=== PATIENT | female | born 1950 | race Caucasian/White ===

== ENCOUNTER 2018-07-29 05:14 | Observation (INO) | payer MEDICARE, OTHER, SELFPAY ==
[2018-07-29] VITALS (12 sets, daily range): BP systolic 105–154; BP diastolic 53–85; PULSE 52–93; RESP 16–18; TEMP 36.4–37.4; O2SAT 96–99; BMI 22.6; BMI 21.4; BMI 21.5
--- NOTE | 2018-07-29 05:35 | ED.DCSUM_ITS ---
History of Present Illness Chief Complaint: Chest Pain Informant: Patient Narrative: Patient stated she laid down to go to bed last night around 9 PM approximately 8 hours ago and started having some left-sided chest pain. She describes the sharp constant pain. Worse with breathing deep. Laying on her left side seems to make it worse as well. She denies any cough fevers or chills. She did feel a little bit chilled at congregation yesterday morning but that went away. She has had this before with previous pneumonia per patient last year. Patient denies any cardiac history. She is never had a stress test or heart cath. She took Tylenol prior to coming in but it seemed to be consistent. Current severity is moderate. Patient denies any pulmonary embolism risk factors. No recent trips. No leg pain or swelling. She is never had a blood clot. She denies any dissection risk factors. She denies any previous medical history other than remote pneumonia. Past Medical History - Allergies and Home Meds Allergies/Adverse Reactions: Allergies No Known Allergies Allergy (Verified 07/29/18 05:15) Primary Care Physician: Norah Munson MD [Primary Care Provider] - Prior records reviewed: Yes Past Medical History: - - Pneumonia Surgical History: cholecystectomy Lives: Spouse/ Significant Other Smoking Status: Never smoker Alcohol: None Drugs: None Review of Systems General: Denies: Chills, Fever, Sweats Eyes: Denies: Visual changes - bilaterally, Diplopia ENT: Denies: Rhinorrhea, Sore throat Cardiovascular: Reports: Chest pain. Denies: Palpitations Respiratory: Denies: Dyspnea, Cough, Dyspnea on exertion Gastrointestinal: Denies: Abdominal pain, Nausea, Vomiting, Diarrhea, Melena, Hematochezia Genitourinary: Denies: Dysuria, Hematuria, Frequency Musculoskeletal: Denies: Back pain, Extremity Pain Skin: Denies: Rash, Wounds Neurological: Denies: Headache, Weakness, Numbness Physical Exam Vital Signs/Narrative: Vital Signs Temp Pulse Resp BP Pulse Ox 07/29/18 05:15 99.4 F H 93 17 154/85 H 96 General: Well nourished, Well developed, No Acute Distress Head: Normocephalic, Atraumatic Eyes: Perrl, EOMI ENT: Moist mucous membranes, No rhinorrhea Neck: Supple, Nontender Cardiovascular: Regular rate, Regular rhythm, No murmurs Respiratory: No distress, CTA bilaterally, Chest nontender Abdomen: Soft, Nontender, Nondistended, Normal bowel sounds Back: Nontender, Normal Inspection Extremities: Nontender, No edema Skin: Normal color, No rash Neurological: Alert, Oriented x3, Cranial nerves II-XII grossly intact, Normal Strength, Normal Sensation Psychological: Normal affect, Normal Mood Diagnostic/Tx/Re-eval - Medical Decision Making EKG shows sinus rhythm at a rate of 77. T wave inversion in inferior lead III. This is changed from previous EKG of 2007. 1 PVC noted. No acute STEMI pattern or other ischemic findings. Patient given a dose of aspirin and morphine. Lab work and chest x-ray obtained. Lab work obtained shows nothing significant. Slightly low platelet count. Troponin d-dimer negative. Chest x-ray normal. Patient required a second dose of morphine for good relief of her pain. I have a low suspicion for acute coronary syndrome pulmonary embolism or dissection. I do not think she needs an acute CT of her chest. Discussed with the hospitalist. Patient will be admitted for further evaluation and treatment. ED Disposition - Plan for ED Patient: Diagnosis: Chest pain at rest Referrals: Norah Munson MD [Primary Care Provider] -
[2018-07-29] MEDS: Aspirin 81 MG TAB.CHEW 324 MG PO (05:38)
[2018-07-29] MEDS: Morphine 4 MG/ML Syringe 2 MG IV (05:39)
--- NOTE | 2018-07-29 05:41 | RAD_ITS ---
STUDY: X-RAY CHEST REASON FOR EXAM: Female, 68 years old. Chest pain. Shortness of breath. TECHNIQUE: 2 views COMPARISON: None. FINDINGS: The lungs are clear and expanded. There is no demonstrated pleural abnormality. Normal size heart. Normal mediastinum and itz. Normal visualized pulmonary arteries. Normal visualized aortic arch and descending thoracic aorta. Normal visualized thoracic spine. Normal visualized ribs, clavicles, and shoulders. There is no demonstrated abnormality of the visualized soft tissue structures of the upper abdomen. RAD/Chest PA and Lateral IMPRESSION: Normal x-ray examination of the chest. No acute findings in the lungs Electronically Signed: Olvin Devi MD at 6:18 EDT Tel , Service support ,
[2018-07-29 05:47] LABS: Absolute Lymphocyte Count 0.88 X10^3/ul (0.83-4.51); Absolute Neutrophil Count 6.2 X10^3/uL (2.0-7.7); Eosinophil# 0.04 X10^3/uL; Eosinophils% 0.5 % (0-5); Hematocrit 36.1 % (37-47); Hemoglobin 12.4 g/dl (12.0-15.0); Lymphocyte # 0.88 X10^3/ul (4.0); Lymphocyte % 11.8 % (19-41); Mean Corp Hgb Conc 34.3 g/gl (32-36); Mean Corpuscular Hgb 32.7 pg (27.0-32.0); Mean Corpuscular Volume 95.3 fL (81-99); Mean Platelet Vol. 8.7 fl (6.2-12.0); Monocyte% 5.3 % (0-10); Neutrophil # 6.15 X10^3/uL (2.7-7.7); Neutrophil % 82.3 % (47-70); Platelet Count 120 K/mm3 (150-450); RBC Distribution Width CV 12.6 % (11.6-14.6); RBC Distribution Width SD 43.8 fl (35.1-43.9); Red Blood Count 3.79 M/mm3 (4.2-5.4); White Blood Count 7.5 K/mm3 (4.4-11.0)
[2018-07-29 05:53] LABS: POSITIVE COUNT NO; POSITIVE DIFFERENTIAL NO; POSITIVE MORPHOLOGY NO
[2018-07-29 06:11] LABS: Anion Gap 7 (5-15); BUN 16 mg/dL (7-18); BUN/Creat Ratio 20.2 RATIO (10-20); Calcium,Total 9.4 mg/dL (8.5-10.1); Chloride 107 mmol/L (98-107); Creatinine, Serum 0.79 mg/dL (0.55-1.02); EST Glomerular Filtration Rate 77 mL/min (>60); Est Glom Filt Rate - Afr Amer 93 mL/min (>60); Estimated Creatinine Clearance 41.99 ml/min; Glucose 119 mg/dL (74-106); Potassium 3.7 mmol/L (3.5-5.1); Sodium Level 141 mmol/L (136-145)
[2018-07-29] MEDS: Morphine 4 MG/ML Syringe IV ×2 (06:12→11:29)
[2018-07-29 07:07] LABS: D-Dimer Quantitative (DVT/PE) < 0.27 FEU/ug/m (0.27-0.49)
--- NOTE | 2018-07-29 08:01 | EKG12_ITS ---
Test Reason : Blood Pressure : / mmHG Vent. Rate : 063 BPM Atrial Rate : 063 BPM P-R Int : 176 ms QRS Dur : 092 ms QT Int : 420 ms P-R-T Axes : 075 010 030 degrees QTc Int : 429 ms Normal sinus rhythm Normal ECG When compared with ECG of 29-JUL-2018 05:23, MANUAL COMPARISON REQUIRED, DATA IS UNCONFIRMED Confirmed by MELINA OCHOA ([id number]), writer editor ESTRELLITA KENDRICK ([id number]) on 08/01/2018 11:11:36 AM Referred By: WHIT Confirmed By:MELINA OCHOA
--- NOTE | 2018-07-29 08:52 | PCM.HP.STD ---
Problem List (1) Thrombocytopenia Status: Acute (2) Chest pain at rest Status: Acute (3) Rib cage region somatic dysfunction Status: Suspected History of Present Illness Date of Admission: 07/29/18 Chief Complaint: Left lateral chest pain The patient is a 68 year old F with no significant past medical history who presented to the emergency department at [facility] on 07/29/2018 complaining of left lateral chest wall pain that started at rest last evening. The pain increases with deep breathing and also with movement. Worse when she went to bed and she slept very little last night. It is not associated with shortness of breath, nausea, diaphoresis. She has never had this pain before. 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 She denies cough and sore throat but states that she has had a runny nose recently. She denies any history of hypertension, hyperlipidemia, diabetes mellitus type 2, family history of coronary artery disease and smoking. EKG in the emergency room is normal with occasional PAC. No signs of presentation to the emergency room are temperature 99.4, pulse rate 93, blood pressure 154/85, respiratory rate 17 and she was 96-97% saturated on room air. Troponin was within normal limits. CBC is remarkable for a low platelet count at 120,000. D-dimer is less than 0.27. BMP is unremarkable with the exception of a mildly increased glucose at 119. Chest x-ray shows no evidence of infiltrates, pleural effusions or pulmonary vascular congestion. She has no anterior chest pain. The pain is reproducible with palpation along the fifth left rib laterally and ther is paravertebral spasm in the thoracic region on the left side. She is being admitted to the hospital to rule out cardiac involvement. 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 There is no family history of cardiovascular disease on either side of her family. Review of Systems Constitutional: Denies: Chills, Fever, Weight Change HEENT: Reports: - - Rhinorrhea. Denies: Head Aches, Sinus Congestion, Sinus Drainage Cardiovascular: Reports: Chest Pain. Denies: Edema, Light Headedness, Orthopnea, Palpitations, Syncope Respiratory: Denies: Cough, Shortness of breath at rest, Sputum production Gastrointestinal: Denies: Abdominal Pain, Nausea, Vomiting Genitourinary: Denies: Dysuria Musculoskeletal: Denies: Joint Pain, Joint Tenderness Skin: Denies: Rash, Wounds Neurological: Denies: Numbness, Tingling, Focal weakness Psychiatric: Denies: Anxiety, Depression, Homicidal Ideations, Suicidal Ideations Hematologic/ Lymphatic: Denies: Easy Bruising, Easy Bleeding VTE Information - Inpt Only VTE Present on Admission: No VTE Mechan Device Prophylaxis: Knee High FREDY Hose VTE Pharm Prophylaxis ordered?: Yes Patient Problems: Active and Suspected Problems Chest pain at rest (Acute) Thrombocytopenia (Acute) Rib cage region somatic dysfunction (Suspected) - Physical Exam General: Alert, Oriented x3, Cooperative, - - not taking deep breaths because it hurts HEENT: Atraumatic, PERRLA, EOMI, Normocephalic Oral: Dry Mucosa Neck: Supple, No JVD, Negative Carotid Bruits, No Nodes, Trachea Midline, - - Brisk carotid upstroke with excellent pulse volume Lungs: Clear to auscultation, Diminished, - - She is hypoventilating because it hurts. No conversational dyspnea. No accessory muscle use. Not tachypneic. No pleural friction rub. Cardiovascular: Regular rate, Regular Rhythm, Normal S1, Normal S2, No murmurs, No Ectopic Activity, No rub noted, No Gallop Abdomen: Bowel Sounds Present, Soft, Non Tender, Non-Distended, - - No abdominal bruits Extremities: No clubbing, No cyanosis, No edema, Capillary Refill Less than 3 Seconds, No Calf Tenderness, Peripheral Pulses Normal, - - Negative Homans sign and negative Joaquim sign Skin: No rashes, No breakdown Musculoskeletal: No Tenderness to Palpation of Joints or Extremities, No Muscle Wasting, Tenderness - to palpation along the fifth left rib. there is also spasm of the thoracic paravertebral muscles on the left Neurological: Cranial nerves II-XII grossly intact Psych/Mental Status: Normal Affect, Appropriate Vital Signs Temp Pulse Resp BP Pulse Ox 99.4 F H 62 16 105/53 L 97 07/29/18 05:15 07/29/18 08:30 07/29/18 07:22 07/29/18 07:22 07/29/18 07:22 Oxygen Delivery Method Room Air Weight: 117 lb 8.102 oz Body Mass Index (BMI) 21.4 Laboratory Tests Past 24 Hrs 07/29/18 07/29/18 07/29/18 05:20 05:20 05:20 WBC 7.5 RBC 3.79 L Hgb 12.4 Hct 36.1 L MCV 95.3 MCH 32.7 H MCHC 34.3 RDW 12.6 RDW Differential 43.8 Plt Count 120 L MPV 8.7 Immature Gran % (Auto) 0.100 Neut % (Auto) 82.3 H Lymph % (Auto) 11.8 L [place] % (Auto) 5.3 Eos % (Auto) 0.5 Baso % (Auto) 0.0 Absolute Neuts (auto) 6.2 Absolute Lymphs (auto) 0.88 Total Counted Not Reportable D-Dimer Quant (PE/DVT) < 0.27 L Sodium 141 Potassium 3.7 Chloride 107 Carbon Dioxide 27.0 Anion Gap 7 BUN 16 Creatinine 0.79 Estim Creat Clear Calc 41.99 Est GFR (MDRD) Af Amer 93 Est GFR (MDRD) Non-Af 77 BUN/Creatinine Ratio 20.2 H Glucose 119 H Calcium 9.4 Troponin I < 0.015 07/29/18 08:24 WBC RBC Hgb Hct MCV MCH MCHC RDW RDW Differential Plt Count MPV Immature Gran % (Auto) Neut % (Auto) Lymph % (Auto) [place] % (Auto) Eos % (Auto) Baso % (Auto) Absolute Neuts (auto) Absolute Lymphs (auto) Total Counted D-Dimer Quant (PE/DVT) Sodium Potassium Chloride Carbon Dioxide Anion Gap BUN Creatinine Estim Creat Clear Calc Est GFR (MDRD) Af Amer Est GFR (MDRD) Non-Af BUN/Creatinine Ratio Glucose Calcium Troponin I Pending Assessment/Plan All Active Problems Chest pain at rest (Acute) Thrombocytopenia (Acute) Impressions 1. Atypical chest pain at rest-suspicious for somatic rib dysfunction on the left 2. Thrombocytopenia-etiology unknown. She is complaining of rhinorrhea so will check a respiratory panel to rule out upper respiratory tract infection with pleuritis Admit to a monitored bed on PCU ASA 81 mg PO daily SL NTG 0.4 mg PRN chest pain Serial Cardiac Enzymes Stat EKG PRN CP Chest XRAY Treadmill nuclear stress test in the AM if the cardiac enzymes are negative DVT prophylaxis ordered Flexeril 10 mg TID Vicodin and MS for pain. Try a dose of Toradol now........when she is more relaxed will attempt osteopathic manipulation of the left rib cage Code Visit OBSV E&M: 17657 Initial observation care L2
--- NOTE | 2018-07-29 08:58 | HP.PCM_ITS ---
Problem List (1) Thrombocytopenia Status: Acute (2) Chest pain at rest Status: Acute (3) Rib cage region somatic dysfunction Status: Suspected History of Present Illness Date of Admission: 07/29/18 Chief Complaint: Left lateral chest pain The patient is a 68 year old F with no significant past medical history who presented to the emergency department at [facility] on 07/29/2018 complaining of left lateral chest wall pain that started at rest last evening. The pain increases with deep breathing and also with movement. Worse when she went to bed and she slept very little last night. It is not associated with shortness of breath, nausea, diaphoresis. She has never had this pain before. 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 She denies cough and sore throat but states that she has had a runny nose recently. She denies any history of hypertension, hyperlipidemia, diabetes mellitus type 2, family history of coronary artery disease and smoking. EKG in the emergency room is normal with occasional PAC. No signs of presentation to the emergency room are temperature 99.4, pulse rate 93, blood pressure 154/85, respiratory rate 17 and she was 96-97% saturated on room air. Troponin was within normal limits. CBC is remarkable for a low platelet count at 120,000. D-dimer is less than 0.27. BMP is unremarkable with the exception of a mildly increased glucose at 119. Chest x-ray shows no evidence of infiltrates, pleural effusions or pulmonary vascular congestion. She has no anterior chest pain. The pain is reproducible with palpation along the fifth left rib laterally and ther is paravertebral spasm in the thoracic region on the left side. She is being admitted to the hospital to rule out cardiac involvement. 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 There is no family history of cardiovascular disease on either side of her family. Review of Systems Constitutional: Denies: Chills, Fever, Weight Change HEENT: Reports: - - Rhinorrhea. Denies: Head Aches, Sinus Congestion, Sinus Drainage Cardiovascular: Reports: Chest Pain. Denies: Edema, Light Headedness, Orthopnea, Palpitations, Syncope Respiratory: Denies: Cough, Shortness of breath at rest, Sputum production Gastrointestinal: Denies: Abdominal Pain, Nausea, Vomiting Genitourinary: Denies: Dysuria Musculoskeletal: Denies: Joint Pain, Joint Tenderness Skin: Denies: Rash, Wounds Neurological: Denies: Numbness, Tingling, Focal weakness Psychiatric: Denies: Anxiety, Depression, Homicidal Ideations, Suicidal Ideations Hematologic/ Lymphatic: Denies: Easy Bruising, Easy Bleeding VTE Information - Inpt Only VTE Present on Admission: No VTE Mechan Device Prophylaxis: Knee High FREDY Hose VTE Pharm Prophylaxis ordered?: Yes Patient Problems: Active and Suspected Problems Chest pain at rest (Acute) Thrombocytopenia (Acute) Rib cage region somatic dysfunction (Suspected) - Physical Exam General: Alert, Oriented x3, Cooperative, - - not taking deep breaths because it hurts HEENT: Atraumatic, PERRLA, EOMI, Normocephalic Oral: Dry Mucosa Neck: Supple, No JVD, Negative Carotid Bruits, No Nodes, Trachea Midline, - - Brisk carotid upstroke with excellent pulse volume Lungs: Clear to auscultation, Diminished, - - She is hypoventilating because it hurts. No conversational dyspnea. No accessory muscle use. Not tachypneic. No pleural friction rub. Cardiovascular: Regular rate, Regular Rhythm, Normal S1, Normal S2, No murmurs, No Ectopic Activity, No rub noted, No Gallop Abdomen: Bowel Sounds Present, Soft, Non Tender, Non-Distended, - - No abdominal bruits Extremities: No clubbing, No cyanosis, No edema, Capillary Refill Less than 3 Seconds, No Calf Tenderness, Peripheral Pulses Normal, - - Negative Homans sign and negative Joaquim sign Skin: No rashes, No breakdown Musculoskeletal: No Tenderness to Palpation of Joints or Extremities, No Muscle Wasting, Tenderness - to palpation along the fifth left rib. there is also spasm of the thoracic paravertebral muscles on the left Neurological: Cranial nerves II-XII grossly intact Psych/Mental Status: Normal Affect, Appropriate Vital Signs Temp Pulse Resp BP Pulse Ox 99.4 F H 62 16 105/53 L 97 07/29/18 05:15 07/29/18 08:30 07/29/18 07:22 07/29/18 07:22 07/29/18 07:22 Oxygen Delivery Method Room Air Weight: 117 lb 8.102 oz Body Mass Index (BMI) 21.4 Laboratory Tests Past 24 Hrs 07/29/18 07/29/18 07/29/18 05:20 05:20 05:20 WBC 7.5 RBC 3.79 L Hgb 12.4 Hct 36.1 L MCV 95.3 MCH 32.7 H MCHC 34.3 RDW 12.6 RDW Differential 43.8 Plt Count 120 L MPV 8.7 Immature Gran % (Auto) 0.100 Neut % (Auto) 82.3 H Lymph % (Auto) 11.8 L [place] % (Auto) 5.3 Eos % (Auto) 0.5 Baso % (Auto) 0.0 Absolute Neuts (auto) 6.2 Absolute Lymphs (auto) 0.88 Total Counted Not Reportable D-Dimer Quant (PE/DVT) < 0.27 L Sodium 141 Potassium 3.7 Chloride 107 Carbon Dioxide 27.0 Anion Gap 7 BUN 16 Creatinine 0.79 Estim Creat Clear Calc 41.99 Est GFR (MDRD) Af Amer 93 Est GFR (MDRD) Non-Af 77 BUN/Creatinine Ratio 20.2 H Glucose 119 H Calcium 9.4 Troponin I < 0.015 07/29/18 08:24 WBC RBC Hgb Hct MCV MCH MCHC RDW RDW Differential Plt Count MPV Immature Gran % (Auto) Neut % (Auto) Lymph % (Auto) [place] % (Auto) Eos % (Auto) Baso % (Auto) Absolute Neuts (auto) Absolute Lymphs (auto) Total Counted D-Dimer Quant (PE/DVT) Sodium Potassium Chloride Carbon Dioxide Anion Gap BUN Creatinine Estim Creat Clear Calc Est GFR (MDRD) Af Amer Est GFR (MDRD) Non-Af BUN/Creatinine Ratio Glucose Calcium Troponin I Pending Assessment/Plan All Active Problems Chest pain at rest (Acute) Thrombocytopenia (Acute) Impressions 1. Atypical chest pain at rest-suspicious for somatic rib dysfunction on the left 2. Thrombocytopenia-etiology unknown. She is complaining of rhinorrhea so will check a respiratory panel to rule out upper respiratory tract infection with pleuritis Admit to a monitored bed on PCU ASA 81 mg PO daily SL NTG 0.4 mg PRN chest pain Serial Cardiac Enzymes Stat EKG PRN CP Chest XRAY Treadmill nuclear stress test in the AM if the cardiac enzymes are negative DVT prophylaxis ordered Flexeril 10 mg TID Vicodin and MS for pain. Try a dose of Toradol now........when she is more relaxed will attempt osteopathic manipulation of the left rib cage Code Visit OBSV E&M: 28097 Initial observation care L2
[2018-07-29 09:09] LABS: AST(SGOT) 20 U/L (15-37); Alanine Aminotransfer ALT/SGPT 21 U/L (13-56); Albumin, Serum 4.1 g/dL (3.2-5.0); Alkaline Phosphatase 62 U/L (45-117); Globulin 3.2 g/dL (2.2-4.2); Protein, Total 7.3 g/dL (6.4-8.2)
[2018-07-29 10:01] LABS: Hemoglobin A1c 5.6 % (4.2-6.3)
[2018-07-29] MEDS: HYDROcodone Bitartrate/Apap 5/325 Tablet PO (10:03)
[2018-07-29] MEDS: Aspirin E.C. 81 MG Tablet PO (10:04)
[2018-07-29] MEDS: 0.9% NaCl Peripheral Flush Adult/Peds IV ×3 (11:29→23:37)
[2018-07-29] MEDS: Ketorolac 15 MG/ML Vial IV ×2 (18:21→23:37)
[2018-07-30] VITALS (7 sets, daily range): BP systolic 112–129; BP diastolic 54–60; PULSE 64–71; RESP 16–18; TEMP 36.4–36.6; O2SAT 95–99
[2018-07-30 05:32] LABS: Hematocrit 33.5 % (37-47); Hemoglobin 11.4 g/dl (12.0-15.0); Mean Corpuscular Volume 97.1 fL (81-99); Mean Platelet Vol. 8.8 fl (6.2-12.0); Platelet Count 104 K/mm3 (150-450); RBC Distribution Width SD 45.7 fl (35.1-43.9); Red Blood Count 3.45 M/mm3 (4.2-5.4); Scan Indicated on CBC? Y/N NO; White Blood Count 5.4 K/mm3 (4.4-11.0)
[2018-07-30 05:34] LABS: International Normalized Ratio 1.3; Prothrombin Time (Protime)PT. 15.5 SECONDS (11.7-14.9)
[2018-07-30 05:35] LABS: Partial Thromboplast Time 33.2 Seconds (24.1-36.2)
[2018-07-30] MEDS: Ketorolac 15 MG/ML Vial IV (05:37)
[2018-07-30] MEDS: 0.9% NaCl Peripheral Flush Adult/Peds IV ×2 (05:37→05:38)
[2018-07-30] MEDS: Aspirin E.C. 81 MG Tablet PO (05:37)
[2018-07-30 05:43] LABS: Anion Gap 4 (5-15); BUN 23 mg/dL (7-18); BUN/Creat Ratio 30.7 RATIO (10-20); Calcium,Total 8.7 mg/dL (8.5-10.1); Chloride 108 mmol/L (98-107); Cholesterol 110 mg/dL (200); Creatinine, Serum 0.75 mg/dL (0.55-1.02); EST Glomerular Filtration Rate 82 mL/min (>60); Est Glom Filt Rate - Afr Amer 99 mL/min (>60); Estimated Creatinine Clearance 41.99 ml/min; Glucose 108 mg/dL (74-106); High Density Lipoprotein 79 mg/dL; Sodium Level 140 mmol/L (136-145); Triglycerides 31 mg/dL; Very Low Density Lipoprotein 6 mg/dL (5-40)
--- NOTE | 2018-07-30 05:55 | EKG12_ITS ---
Test Reason : AM EKG Blood Pressure : / mmHG Vent. Rate : 064 BPM Atrial Rate : 064 BPM P-R Int : 142 ms QRS Dur : 090 ms QT Int : 390 ms P-R-T Axes : 028 009 013 degrees QTc Int : 402 ms Normal sinus rhythm Normal ECG When compared with ECG of 29-JUL-2018 08:14, MANUAL COMPARISON REQUIRED, DATA IS UNCONFIRMED Confirmed by MELINA OCHOA ([id number]), editor school photograph ESTRELLITA KENDRICK ([id number]) on 08/01/2018 11:20:00 AM Referred By: DR CORDOBA Confirmed By:MELINA OCHOA
--- NOTE | 2018-07-30 08:46 | NURSING ---
Pt returned to room on PCU at this time. Tele reapplied.
--- NOTE | 2018-07-30 08:55 | NURSING ---
Dr. Daniels spoke with this RN via telephone-- states that he will be ordering a stress echo and that AM beta emiliano needs to be held. Same completed.
--- NOTE | 2018-07-30 11:31 | STRESSREP ---
Stress Test Report Date: 07-30-18 Procedure: Pharmacologic stress nuclear imaging study Indications: Chest pain Consent: Per the patient Procedure: The patient underwent pharmacologic (Regadenoson) evaluation with a peak heart rate of 93 beats per minute (61 %predicted maximal heart rate) and a peak blood pressure of 114/54 mmHg. The baseline ECG demonstrated normal sinus rhythm. The peak pharmacologic ECG demonstrated no obvious ECG changes. There were no cardiac dysrhythmias pretest, during pharmacologic infusion, or recovery. There was no complaint of chest discomfort during pharmacologic infusion or recovery. The examination was discontinued secondary to completion of protocol. Impression: 1. Pharmacologic (Regadenoson) evaluation 2. Peak pharmacologic ECG with no obvious ECG changes. 3. There were no cardiac dysrhythmias pretest, during pharmacologic infusion, or recovery. 4. Nuclear images pending Myocardial perfusion imaging study: Technique: The patient was injected with 11.1 millicuries of technetium 99m Cardiolite and subsequently rest SPECT Cardiolite nuclear imaging was obtained in the horizontal long, vertical long, and short axis views. The patient underwent pharmacologic (Regadenoson) evaluation with a peak heart rate of 93 beats per minute (61 % percent predicted maximal heart rate) and a peak blood pressure of 114/54 mmHg. The patient was injected with 31.9 millicuries of technetium 99m Cardiolite and subsequently stress SPECT Cardiolite nuclear imaging was obtained in the horizontal long, vertical long, and short axis views. A gated Cardiolite study at peak stress was obtained. Interpretation: Rest and stress SPECT Cardiolite nuclear imaging status post realignment, normalization, and attenuation correction demonstrate areas of extra cardiac/gastrointestinal tracer uptake which appear to be more prominent following stress as opposed to rest. Otherwise there appears to be relative uniform tracer uptake and myocardial perfusion appearing within normal limits.. There is end systolic thickening and brightening. The gated Cardiolite study demonstrates myocardial thickening and inward wall motion. The reported LVEF is 67 %. Impression: 1. Rest and stress SPECT Cardiolite nuclear imaging demonstrate myocardial perfusion changes demonstrating areas of extracardiac/gastrointestinal tracer uptake being more prominent following stress as opposed to with no additional myocardial perfusion changes consider diagnostic for associated stress-induced myocardial ischemia or previous myocardial injury/infarction. 2. The gated Cardiolite study reports an LVEF of 67 %. This note was generated with [employer] software. It may contain incorrect words, spelling, and punctuation that were not noted in checking the note before signing.
--- NOTE | 2018-07-30 16:56 | PCM.DC ---
- Discharge Diagnoses Current Active Problems: Current Active and Chronic Problems Chest pain at rest (Acute) Thrombocytopenia (Acute) You will use the following diet at home:: No restrictions Your food should be the consistency of: Regular Your liquids should be the consistency of: Regular/Thin Call your doctor if you observe: Fever of 101 or Higher, Shortness of breath, Dizziness, Fainting spells, Swelling in the ankles, Uncontrolled pain Additional Instructions: The stress test was normal and showed no evidence tht you have any significant heart disease. There was no problem with the rhythm of your heart. I think your pain is coming from the musculoskeletal system and I think you would benefit from a visit to the chiropracter. I am giving you a prescription for Motrin to help with the pain and also a muscle relaxer. some people benefit from a heating pad and others do better with ice.....find what is best for you. Try and do some stretching after you take the Motrin and the muscle relaxer, this often helps......sitting or lying in the same position often makes it worse. I do not hear anything in the heart or lungs that would make me think you have pleurisy or pericarditis but, this is not impossible......the treatment for this would be an anti-inflammatory like Motrin anyway. Allergies/Adverse Reactions: Allergies No Known Allergies Allergy (Verified 07/29/18 05:15) Medications to take at Discharge [place]-3 Fatty Acids [[place]-3] 1,000 mg PO DAILY 07/29/18 Cyclobenzaprine [Flexeril] 10 mg PO Q6H PRN PRN #15 tab 07/30/18 Ibuprofen [Motrin] 600 mg PO Q8H #12 tab 07/30/18 The following prescriptions were given: Cyclobenzaprine [Flexeril] 10 mg PO Q6H PRN PRN #15 tab PRN Reason: muscle spasm Ibuprofen [Motrin] 600 mg PO Q8H #12 tab Primary Care Physician: Norah Munson MD [Primary Care Provider] - Please follow up with your Primary Care Physician in: in the next few days Test Results: Test results from this visit will be discussed in further detail at your follow-up appointment, if applicable. Proposed Discharge Date: 07/30/18
--- NOTE | 2018-07-30 17:02 | DCINST_ITS ---
- Discharge Diagnoses Current Active Problems: Current Active and Chronic Problems Chest pain at rest (Acute) Thrombocytopenia (Acute) You will use the following diet at home:: No restrictions Your food should be the consistency of: Regular Your liquids should be the consistency of: Regular/Thin Call your doctor if you observe: Fever of 101 or Higher, Shortness of breath, Dizziness, Fainting spells, Swelling in the ankles, Uncontrolled pain Additional Instructions: The stress test was normal and showed no evidence tht you have any significant heart disease. There was no problem with the rhythm of your heart. I think your pain is coming from the musculoskeletal system and I think you would benefit from a visit to the chiropracter. I am giving you a prescription for Motrin to help with the pain and also a muscle relaxer. some people benefit from a heating pad and others do better with ice.....find what is best for you. Try and do some stretching after you take the Motrin and the muscle relaxer, this often helps......sitting or lying in the same position often makes it worse. I do not hear anything in the heart or lungs that would make me think you have pleurisy or pericarditis but, this is not i mpossible......the treatment for this would be an anti-inflammatory like Motrin anyway. Allergies/Adverse Reactions: Allergies No Known Allergies Allergy (Verified 07/29/18 05:15) Medications to take at Discharge [place]-3 Fatty Acids [[place]-3] 1,000 mg PO DAILY 07/29/18 Cyclobenzaprine [Flexeril] 10 mg PO Q6H PRN PRN #15 tab 07/30/18 Ibuprofen [Motrin] 600 mg PO Q8H #12 tab 07/30/18 The following prescriptions were given: Cyclobenzaprine [Flexeril] 10 mg PO Q6H PRN PRN #15 tab PRN Reason: muscle spasm Ibuprofen [Motrin] 600 mg PO Q8H #12 tab Primary Care Physician: Norah Munson MD [Primary Care Provider] - Please follow up with your Primary Care Physician in: in the next few days Test Results: Test results from this visit will be discussed in further detail at your follow- up appointment, if applicable. Proposed Discharge Date: 07/30/18
--- NOTE | 2018-07-30 17:06 | PCM.DC.SUM ---
Discharge Date and Diagnosis Date of Admission: 07/29/18 Date of Discharge: 07/30/18 - Primary Discharge Diagnosis Active and Suspected Problems Segmental dysfunction of rib cage (Acute) Chest pain at rest (Acute) Thrombocytopenia (Acute) Rib cage region somatic dysfunction (Suspected) - Secondary Discharge Diagnosis no significant PMH on no medications Hospital Course and Treatment Imaging Results: Clinical Impression(s) from Imaging Studies Chest X-Ray 07/29/18 05:41 IMPRESSION: Normal x-ray examination of the chest. No acute findings in the lungs Electronically Signed: Olvin Devi MD at 6:18 EDT Tel , Service support , Laboratory Tests 07/30/18 07/30/18 07/30/18 Range/Units 05:00 05:00 05:00 WBC 5.4 (4.4-11.0) K/mm3 RBC 3.45 L (4.2-5.4) M/mm3 Hgb 11.4 L (12.0-15.0) g/dl Hct 33.5 L (37-47) % MCV 97.1 (81-99) fL MCH 33.0 H (27.0-32.0) pg MCHC 34.0 (32-36) g/gl RDW 13.0 (11.6-14.6) % RDW Differential 45.7 H (35.1-43.9) fl Plt Count 104 L (150-450) K/mm3 MPV 8.8 (6.2-12.0) fl Immature Gran % (Auto) (0.0-0.9) % Neut % (Auto) (47-70) % Lymph % (Auto) (19-41) % [place] % (Auto) (0-10) % Eos % (Auto) (0-5) % Baso % (Auto) (0-1) % Absolute Neuts (auto) (2.0-7.7) X10^3/uL Absolute Lymphs (auto) (0.83-4.51) X10^3/ul Total Counted PT 15.5 H (11.7-14.9) SECONDS INR 1.3 APTT 33.2 (24.1-36.2) Seconds D-Dimer Quant (PE/DVT) (0.27-0.49) FEU/ug/m Sodium 140 (136-145) mmol/L Potassium 4.0 (3.5-5.1) mmol/L Chloride 108 H (98-107) mmol/L Carbon Dioxide 28.0 (21.0-32.0) mmol/L Anion Gap 4 L (5-15) BUN 23 H (7-18) mg/dL Creatinine 0.75 (0.55-1.02) mg/dL Estim Creat Clear Calc 41.99 ml/min Est GFR (MDRD) Af Amer 99 (>60) mL/min Est GFR (MDRD) Non-Af 82 (>60) mL/min BUN/Creatinine Ratio 30.7 H (10-20) RATIO Glucose 108 H (74-106) mg/dL Hemoglobin A1c (4.2-6.3) % Calcium 8.7 (8.5-10.1) mg/dL Total Bilirubin (0.20-1.00) mg/dL Direct Bilirubin (0.00-0.30) mg/dL AST (15-37) U/L ALT (13-56) U/L Alkaline Phosphatase (45-117) U/L Troponin I (<0.045) ng/mL Total Protein (6.4-8.2) g/dL Albumin (3.2-5.0) g/dL Globulin (2.2-4.2) g/dL Triglycerides 31 ( - 199) mg/dL Cholesterol 110 (200) mg/dL LDL Cholesterol 25 (0-130) mg/dL VLDL Cholesterol 6 (5-40) mg/dL HDL Cholesterol 79 (40 - ) mg/dL 07/29/18 07/29/18 07/29/18 Range/Units 10:44 08:24 08:24 WBC (4.4-11.0) K/mm3 RBC (4.2-5.4) M/mm3 Hgb (12.0-15.0) g/dl Hct (37-47) % MCV (81-99) fL MCH (27.0-32.0) pg MCHC (32-36) g/gl RDW (11.6-14.6) % RDW Differential (35.1-43.9) fl Plt Count (150-450) K/mm3 MPV (6.2-12.0) fl Immature Gran % (Auto) (0.0-0.9) % Neut % (Auto) (47-70) % Lymph % (Auto) (19-41) % [place] % (Auto) (0-10) % Eos % (Auto) (0-5) % Baso % (Auto) (0-1) % Absolute Neuts (auto) (2.0-7.7) X10^3/uL Absolute Lymphs (auto) (0.83-4.51) X10^3/ul Total Counted PT (11.7-14.9) SECONDS INR APTT (24.1-36.2) Seconds D-Dimer Quant (PE/DVT) (0.27-0.49) FEU/ug/m Sodium (136-145) mmol/L Potassium (3.5-5.1) mmol/L Chloride (98-107) mmol/L Carbon Dioxide (21.0-32.0) mmol/L Anion Gap (5-15) BUN (7-18) mg/dL Creatinine (0.55-1.02) mg/dL Estim Creat Clear Calc ml/min Est GFR (MDRD) Af Amer (>60) mL/min Est GFR (MDRD) Non-Af (>60) mL/min BUN/Creatinine Ratio (10-20) RATIO Glucose (74-106) mg/dL Hemoglobin A1c (4.2-6.3) % Calcium (8.5-10.1) mg/dL Total Bilirubin 0.80 (0.20-1.00) mg/dL Direct Bilirubin 0.20 (0.00-0.30) mg/dL AST 20 (15-37) U/L ALT 21 (13-56) U/L Alkaline Phosphatase 62 (45-117) U/L Troponin I < 0.015 < 0.015 (<0.045) ng/mL Total Protein 7.3 (6.4-8.2) g/dL Albumin 4.1 (3.2-5.0) g/dL Globulin 3.2 (2.2-4.2) g/dL Triglycerides ( - 199) mg/dL Cholesterol (200) mg/dL LDL Cholesterol (0-130) mg/dL VLDL Cholesterol (5-40) mg/dL HDL Cholesterol (40 - ) mg/dL 07/29/18 07/29/18 07/29/18 Range/Units 05:20 05:20 05:20 WBC (4.4-11.0) K/mm3 RBC (4.2-5.4) M/mm3 Hgb (12.0-15.0) g/dl Hct (37-47) % MCV (81-99) fL MCH (27.0-32.0) pg MCHC (32-36) g/gl RDW (11.6-14.6) % RDW Differential (35.1-43.9) fl Plt Count (150-450) K/mm3 MPV (6.2-12.0) fl Immature Gran % (Auto) (0.0-0.9) % Neut % (Auto) (47-70) % Lymph % (Auto) (19-41) % [place] % (Auto) (0-10) % Eos % (Auto) (0-5) % Baso % (Auto) (0-1) % Absolute Neuts (auto) (2.0-7.7) X10^3/uL Absolute Lymphs (auto) (0.83-4.51) X10^3/ul Total Counted PT (11.7-14.9) SECONDS INR APTT (24.1-36.2) Seconds D-Dimer Quant (PE/DVT) < 0.27 L (0.27-0.49) FEU/ug/m Sodium 141 (136-145) mmol/L Potassium 3.7 (3.5-5.1) mmol/L Chloride 107 (98-107) mmol/L Carbon Dioxide 27.0 (21.0-32.0) mmol/L Anion Gap 7 (5-15) BUN 16 (7-18) mg/dL Creatinine 0.79 (0.55-1.02) mg/dL Estim Creat Clear Calc 41.99 ml/min Est GFR (MDRD) Af Amer 93 (>60) mL/min Est GFR (MDRD) Non-Af 77 (>60) mL/min BUN/Creatinine Ratio 20.2 H (10-20) RATIO Glucose 119 H (74-106) mg/dL Hemoglobin A1c 5.6 (4.2-6.3) % Calcium 9.4 (8.5-10.1) mg/dL Total Bilirubin (0.20-1.00) mg/dL Direct Bilirubin (0.00-0.30) mg/dL AST (15-37) U/L ALT (13-56) U/L Alkaline Phosphatase (45-117) U/L Troponin I < 0.015 (<0.045) ng/mL Total Protein (6.4-8.2) g/dL Albumin (3.2-5.0) g/dL Globulin (2.2-4.2) g/dL Triglycerides ( - 199) mg/dL Cholesterol (200) mg/dL LDL Cholesterol (0-130) mg/dL VLDL Cholesterol (5-40) mg/dL HDL Cholesterol (40 - ) mg/dL 07/29/18 Range/Units 05:20 WBC 7.5 (4.4-11.0) K/mm3 RBC 3.79 L (4.2-5.4) M/mm3 Hgb 12.4 (12.0-15.0) g/dl Hct 36.1 L (37-47) % MCV 95.3 (81-99) fL MCH 32.7 H (27.0-32.0) pg MCHC 34.3 (32-36) g/gl RDW 12.6 (11.6-14.6) % RDW Differential 43.8 (35.1-43.9) fl Plt Count 120 L (150-450) K/mm3 MPV 8.7 (6.2-12.0) fl Immature Gran % (Auto) 0.100 (0.0-0.9) % Neut % (Auto) 82.3 H (47-70) % Lymph % (Auto) 11.8 L (19-41) % [place] % (Auto) 5.3 (0-10) % Eos % (Auto) 0.5 (0-5) % Baso % (Auto) 0.0 (0-1) % Absolute Neuts (auto) 6.2 (2.0-7.7) X10^3/uL Absolute Lymphs (auto) 0.88 (0.83-4.51) X10^3/ul Total Counted Not Reportable PT (11.7-14.9) SECONDS INR APTT (24.1-36.2) Seconds D-Dimer Quant (PE/DVT) (0.27-0.49) FEU/ug/m Sodium (136-145) mmol/L Potassium (3.5-5.1) mmol/L Chloride (98-107) mmol/L Carbon Dioxide (21.0-32.0) mmol/L Anion Gap (5-15) BUN (7-18) mg/dL Creatinine (0.55-1.02) mg/dL Estim Creat Clear Calc ml/min Est GFR (MDRD) Af Amer (>60) mL/min Est GFR (MDRD) Non-Af (>60) mL/min BUN/Creatinine Ratio (10-20) RATIO Glucose (74-106) mg/dL Hemoglobin A1c (4.2-6.3) % Calcium (8.5-10.1) mg/dL Total Bilirubin (0.20-1.00) mg/dL Direct Bilirubin (0.00-0.30) mg/dL AST (15-37) U/L ALT (13-56) U/L Alkaline Phosphatase (45-117) U/L Troponin I (<0.045) ng/mL Total Protein (6.4-8.2) g/dL Albumin (3.2-5.0) g/dL Globulin (2.2-4.2) g/dL Triglycerides ( - 199) mg/dL Cholesterol (200) mg/dL LDL Cholesterol (0-130) mg/dL VLDL Cholesterol (5-40) mg/dL HDL Cholesterol (40 - ) mg/dL none Operations: None Procedures: Stress test Summary of Care Provided: The patient is a 68 year old F with no significant PMH who presented to the ED at [facility] c/o left lateral CP that had started the preceding evenng while she was at rest. The pain increased with movement and with taking a deep breath. She denies any hx of CAD or VTE. She had not recently had any trauma to her legs and denied calf pain/swelling or redness. Initial troponin was WNL. CXR showed no acute findings. EKG showed NSR with no suspicious ST or T wave changes. D Dimer was < 0.27. She was not tachycardic. Significant lab included a mildly decreased PLT count. She was admitted to a monitored bed on PCU and serial cardiac enzymes were ordered. On PE she had paravertebral muscle spasm on the left in the thoracic area. She had pain with palpation along the left ribs. The lungs were CTA and the Heart had a regular rhythm with no MM and no pericardial friction rub. No pleural rub was appreciated. The exam was unremarkable other than the increased left chest pain with palpation of the ribs. She was ordered muscle relaxers and pain medication. Serial CE's were negative and she had a stress test that was negative. Telemetry showed NSR with no significant ectopy. Lab the next morning continued to show mild thrombocytopenia. The etiology of the thrombocytopenia is unknown but, it is not inconceivable that she may have a viral infection with pleurisy? She was discharged home with a RX for Motrin and will follow up with her PCP. If there is no improvement over the next few days she may benefit from a chiropractic adjustment. Alert, appears to still be in pain and looks fatigued Lungs - CTA with good air exchange H - RRR with no MM and no rub, no gallop abd - soft, NT, ND, no BS's no ankle edema no calf pain - Physical Exam Vital Signs Temp Pulse Resp BP Pulse Ox 98 F 71 16 129/60 H 98 07/30/18 13:39 07/30/18 15:25 07/30/18 13:39 07/30/18 13:39 07/30/18 13:39 Oxygen Delivery Method Room Air Weight: 117 lb 8.102 oz Body Mass Index (BMI) 21.4 Intake and Output for Last 24 Hours 07/28/18 07/29/18 07/30/18 23:59 23:59 23:59 Intake Total 600 / 600 100 / 100 Output Total 120 / 120 Balance 480 / 480 100 / 100 Microbiology Past 72 Hours 07/29/18 11:25 Respiratory Panel (PCR) - Final Mucosa - Nasopharyngeal Laboratory Tests Past 24 Hrs 07/30/18 07/30/18 07/30/18 05:00 05:00 05:00 WBC 5.4 RBC 3.45 L Hgb 11.4 L Hct 33.5 L MCV 97.1 MCH 33.0 H MCHC 34.0 RDW 13.0 RDW Differential 45.7 H Plt Count 104 L MPV 8.8 PT 15.5 H INR 1.3 APTT 33.2 Sodium 140 Potassium 4.0 Chloride 108 H Carbon Dioxide 28.0 Anion Gap 4 L BUN 23 H Creatinine 0.75 Estim Creat Clear Calc 41.99 Est GFR (MDRD) Af Amer 99 Est GFR (MDRD) Non-Af 82 BUN/Creatinine Ratio 30.7 H Glucose 108 H Calcium 8.7 Triglycerides 31 Cholesterol 110 LDL Cholesterol 25 VLDL Cholesterol 6 HDL Cholesterol 79 Call your doctor if you observe: Fever of 101 or Higher, Shortness of breath, Dizziness, Fainting spells, Swelling in the ankles, Uncontrolled pain Home Medications: Medications to take at Discharge [place]-3 Fatty Acids [[place]-3] 1,000 mg PO DAILY 07/29/18 Cyclobenzaprine [Flexeril] 10 mg PO Q6H PRN PRN #15 tab 07/30/18 Ibuprofen [Motrin] 600 mg PO Q8H #12 tab 07/30/18 Following Prescrptions Were Given to Patient: Cyclobenzaprine [Flexeril] 10 mg PO Q6H PRN PRN #15 tab PRN Reason: muscle spasm Ibuprofen [Motrin] 600 mg PO Q8H #12 tab Primary Care Physician: Norah Munson MD [Primary Care Provider] - Please follow up with your Primary Care Physician in: in the next few days Minutes spent on discharge:: 30 Patient Condition:: Stable Medical Necessity - Tobacco Use Smoking Status: Never smoker Tobacco Use: Non-smoker Meaningful Use Info Meaningful Use Diagnoses (Choose all that apply): None applicable Code Visit OBSV E&M: 18156 Observation care discharge
== END 2018-07-30 17:06 | disposition home or self-care (01) ==
LOC: ED 07:12 → PCU 07:30
PROVIDERS: Admitting Provider Internal Medicine; Emergency Provider Emergency Medicine; Family Provider Internal Medicine; PCP Internal Medicine; Visit Provider Internal Medicine
DX: R07.89 Other chest pain (principal); D69.6 Thrombocytopenia, unspecified; M99.08 Segmental and somatic dysfunction of rib cage; Z87.01 Personal history of pneumonia (recurrent); R06.02 Shortness of breath; R06.00 Dyspnea, unspecified; R53.83 Other fatigue; M62.838 Other muscle spasm
CPT/HCPCS: 36415; 71046; 78452; 80048; 80061; 80076; 83036; 84484; 85025; 85027; 85379; 85610; 85730; 87633; 93005; 93017; 96374; 96375; 96376; 99218; 99285; A9500; A4216; G0378; J2785

== ENCOUNTER → 2020-01-02 14:25 | Outpatient (CLI) | payer MEDICARE, SELFPAY ==
[2018-07-29 08:02] VITALS: BMI 21.4
[2020-01-02 18:29] LABS: Vitamin D,25 Hydroxy 50.1 ng/mL
[2020-01-02 18:35] LABS: Anion Gap 3 (5-15); BUN 16 mg/dL (7-18); BUN/Creat Ratio 22.2 RATIO (10-20); Calcium,Total 9.1 mg/dL (8.5-10.1); Chloride 106 mmol/L (98-107); Cholesterol 135 mg/dL (200); Creatinine, Serum 0.72 mg/dL (0.55-1.02); EST Glomerular Filtration Rate 85 mL/min (>60); Est Glom Filt Rate - Afr Amer 103 mL/min (>60); Glucose 140 mg/dL (74-106); High Density Lipoprotein 88 mg/dL; Potassium 3.4 mmol/L (3.5-5.1); Sodium Level 139 mmol/L (136-145); Triglycerides 46 mg/dL; Very Low Density Lipoprotein 9 mg/dL (5-40)
== END ==
PROVIDERS: PCP Family Medicine; Referring Provider Family Medicine; Visit Provider Family Medicine
DX: Z00.00 Encounter for general adult medical examination without abnormal findings (principal); E55.9 Vitamin D deficiency, unspecified
CPT/HCPCS: 36415; 80048; 80061; 82306

== ENCOUNTER → 2020-03-30 12:22 | Outpatient (CLI) | payer MEDICARE, SELFPAY ==
[2018-07-29 08:02] VITALS: BMI 21.4
--- NOTE | 2020-03-30 12:25 | BI_ITS ---
MAMMOGRAPHY - BILATERAL SCREENING REASON FOR EXAM: Female, 69 years old. Routine annual screening examination. PERTINENT HISTORY: Non-contributory. Remote left breast biopsy. TECHNIQUE: Digital bilateral breast alessandra (3D mammographic acquisition) in the CC and MLO projections. 2-D mediolateral oblique (MLO) and craniocaudad (CC) views of both breasts were obtained. CAD: Full Field Digital Mammography with Computer Added Detection was performed. COMPARISON: Comparison is made with prior examination dated 03/05/2017. FINDINGS: Breast Composition: The breasts are extremely dense, which lowers the sensitivity of mammography. There are no dominant masses or suspicious calcifications. Stable scattered secretory calcifications. No other significant abnormalities are identified. There has been no significant change since the prior study. BI/SCREEN MAMM (CAD) W/ALESSANDRA BILAT IMPRESSION: Stable bilateral screening mammogram. Yearly follow-up mammogram recommended. (A) ASSESSMENT CATEGORY: BIRADS Category 2: Benign. A letter regarding these results will be sent to the patient by the facility within 30 days. Approximately 10% of breast cancers are not detected by mammography. A normal mammogram should not delay biopsy of a clinically suspicious abnormality. [id number] Electronically Signed: Norman Davis, at 13:33 EST , Service support ,
--- NOTE | 2020-03-30 12:26 | BD_ITS ---
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 COMPARISON: None. FINDINGS: Lumbar Spine (L1-L4): g/cm2 (1.062) / T-score (-1.2) / Z-score (0.5) Findings are suggestive of osteopenia with a low fracture risk. Left Femur Total: g/cm2 (0.760) / T-score (-2.0) / Z-score (-0.5) Left Femoral Neck: g/cm2 (0.754) / T-score (-2.0) / Z-score (-0.3) Right Femur Total: g/cm2 (0.721) / T-score (-2.3) / Z-score (-0.8) Right Femoral Neck: g/cm2 (0.711) / T-score (-2.4) / Z-score (-0.6) BD/Dexa Bone Density Study IMPRESSION: The patient is considered osteopenic as outlined below according to World [employer] Organization (WHO) criteria with a high fracture risk. Reference Information: The T-score is the number of standard deviations above or below the standard which is normal for young adults at their peak bone mineral density. The World Health Organization (WHO) interprets the T-scores as follows: Above -1 Normal bone density Between -1 and -2.5 Osteopenia Equal to / or below -2.5 Osteoporosis As a practical clinical guideline, osteopenia may be graded as follows: Mild -1 through -1.5 Moderate -1.6 through -2.0 Severe -2.1 through -2.4 The Z-score is the number of standard deviations above or below age-matched controls. A Z-score of less than -1.5 would be considered abnormal. References: 1. NIH Osteoporosis and Related Bone Diseases www osteo.org 2. International Society for Clinical Densitometry www iscd.org 3. National Osteoporosis Foundation www nof.org Electronically Signed: Norman Davis, at 15:26 EST , Service support ,
== END ==
PROVIDERS: PCP Family Medicine; Referring Provider Family Medicine; Visit Provider Family Medicine
DX: Z78.0 Asymptomatic menopausal state (principal); Z12.31 Encounter for screening mammogram for malignant neoplasm of breast
CPT/HCPCS: 77063; 77067; 77080

== ENCOUNTER → 2021-08-22 | Outpatient (CLI) | payer MEDICARE, OTHER, SELFPAY ==
[2021-08-22 12:08] LABS: Absolute Lymphocyte Count 1.12 X10^3/uL (0.83-4.51); Basophil# 0.01 X10^3/uL; Basophil% 0.3 % (0-1); Eosinophil# 0.05 X10^3/uL; Eosinophils% 1.5 % (0-5); Hematocrit 39.4 % (37-47); Hemoglobin 12.4 g/dL (12.0-15.0); Lymphocyte # 1.12 X10^3/ul (0.83-4.51); Lymphocyte % 33.4 % (19-41); Mean Corp Hgb Conc 31.5 g/dL (32-36); Mean Corpuscular Hgb 31.6 pg (27.0-32.0); Mean Corpuscular Volume 100.3 fL (81-99); Mean Platelet Vol. 8.7 fl (6.2-12.0); NRBC Flagged by Analyzer 0 % (0-5); Neutrophil # 1.96 X10^3/uL (2.7-7.7); Neutrophil % 58.5 % (47-70); Platelet Count 178 K/mm3 (150-450); RBC Distribution Width CV 12.6 % (11.6-14.6); RBC Distribution Width SD 46.9 fl (35.1-43.9); Red Blood Count 3.93 M/mm3 (4.2-5.4); White Blood Count 3.4 K/mm3 (4.4-11.0)
[2021-08-22 12:34] LABS: AST(SGOT) 13 U/L (15-37); Alanine Aminotransfer ALT/SGPT 21 U/L (13-56); Albumin, Serum 3.5 g/dL (3.2-5.0); Alkaline Phosphatase 61 U/L (45-117); Anion Gap 5 (5-15); BUN 22 mg/dL (7-18); BUN/Creat Ratio 27.1 RATIO (10-20); Calcium,Total 9.2 mg/dL (8.5-10.1); Chloride 107 mmol/L (98-107); Creatinine, Serum 0.81 mg/dL (0.55-1.02); EST Glomerular Filtration Rate 74 mL/min (>60); Est Glom Filt Rate - Afr Amer 89 mL/min (>60); Globulin 3.5 g/dL (2.2-4.2); Glucose 89 mg/dL (74-106); Potassium 4.6 mmol/L (3.5-5.1); Sodium Level 142 mmol/L (136-145); Thyroid Stim Hormone (TSH) 2.33 uIU/mL (0.358-3.74)
== END | disposition home or self-care (01) ==
LOC: BIMLAB 09:28
PROVIDERS: PCP Internal Medicine; Referring Provider Internal Medicine; Visit Provider Internal Medicine
DX: R07.9 Chest pain, unspecified (principal); K59.00 Constipation, unspecified; R10.9 Unspecified abdominal pain
CPT/HCPCS: 36415; 80053; 84443; 85025

== ENCOUNTER → 2021-08-29 | Outpatient (CLI) | payer MEDICARE, OTHER, SELFPAY ==
--- NOTE | 2021-08-29 13:38 | CT_ITS ---
STUDY: CT Abdomen And Pelvis W/ Contrast Injection 08/29/2021 9:32 PM REASON FOR EXAM: Female, 71 years old. Abdominal pain upper abdominal pain, abdominal bloating Technologist Notes DIFFUSE ABD PAIN,BLOATING,CONSTIPATION Individualized dose optimization techniques were used for this CT. COMPARISON: Prior comparison studies are not available for review at this time. TECHNIQUE: CT Abdomen And Pelvis W/ Contrast Injection Oral and amp; IV Readi-CAT and amp; 100mL Isovue-300 FINDINGS: There are atherosclerotic calcifications of visualized coronary arteries. The visualized portions of the heart are within normal limits. There is periportal edema noted. There are surgical clips in the gallbladder fossa consistent with a prior cholecystectomy. Normal spleen. Normal pancreas. Multiple hypodensities in the liver. These are nonspecific. Normal bilateral adrenal glands. No acute findings of the right kidney. No acute findings of the left kidney. Normal visualized stomach. Normal small intestine. Stool throughout the colon. The appendix is visualized and appears normal. There are calcifications of the abdominal aorta. This is consistent for atherosclerotic disease. There is NO abdominal aortic aneurysm. Vascular workup can be obtained based on clinical correlation. Normal inferior vena cava. Subcentimeter mesenteric lymph nodes. Normal urinary bladder. There is atrophy of the uterus. Normal abdominal wall. Normal osseous structures. CT/Abdomen/Pelvis WITH Contrast IMPRESSION: (NOT LISTED IN ORDER OF SIGNIFICANCE) There are no acute findings. Multiple hypodensities in the liver. These are nonspecific. ACR White Paper guidelines (Adri, et al. JACR 2017; 14(11):7226-0999.) suggest the following. For patients with low risk of malignancy, no further follow-up is necessary. For patients with high risk of malignancy (known malignancy with a propensity to metastasize to the liver, cirrhosis, and/or other hepatic risk factors), recommend follow-up abdominal CT or MR in 6 months. Other findings as above. Electronically Signed: Scott Nieto MD at 21:35 EDT ,
== END | disposition home or self-care (01) ==
LOC: CT 13:37
PROVIDERS: PCP Internal Medicine; Referring Provider Internal Medicine
DX: K59.00 Constipation, unspecified (principal); R10.10 Upper abdominal pain, unspecified; R14.0 Abdominal distension (gaseous)
CPT/HCPCS: 74177; Q9967; A4216

== ENCOUNTER → 2021-11-14 | Outpatient (CLI) | payer MEDICARE, OTHER, SELFPAY ==
--- NOTE | 2021-11-14 09:28 | US_ITS ---
STUDY: ABDOMINAL ULTRASOUND - RIGHT UPPER QUADRANT REASON FOR VISIT: Female, 71 years old. Hypodensities in the liver. History of cholecystectomy. TECHNIQUE: Ultrasound evaluation of the right upper quadrant was performed with real-time and static velazquez-scale imaging. TECHNICAL QUALITY: Adequate. COMPARISON: None. FINDINGS: Liver: The liver measures 13.2 cm. There is normal echogenicity of the liver. The bile ducts are within normal limits. There is hepatic color flow. The direction of portal flow is hepatopetal. In the left lateral lobe of the liver there is a 0.8 x 0.8 x 0.5 cm anechoic structure with through transmission thought to represent a cyst. In the posterior right liver there is a 1.2 x 0.8 x 0.6 cm cyst with through transmission. There is also a 0.9 x 0.8 x 0.8 cm cyst. Gallbladder: The patient is status post cholecystectomy. Common Bile Duct (C.B.D.): The common bile duct measures 3.4 mm. Pancreas: Normal size of the head, body and tail of the pancreas. There is normal echogenicity of the pancreas. There is no demonstrated pancreatic mass or cyst. Right Kidney: Normal size of the right kidney. The right kidney measures 10.5 cm. Normal renal cortex. The right cortex measures 1.1 cm. There is no demonstrated renal mass or cyst. There is no right hydronephrosis. US/Liver IMPRESSION: 1. 3 small cysts seen within an otherwise normal liver. 2. Status post cholecystectomy. Electronically Signed: Koko Chavez DO at 20:49 EDT ,
== END | disposition home or self-care (01) ==
LOC: US 09:26
PROVIDERS: PCP Internal Medicine; Referring Provider Internal Medicine; Visit Provider Internal Medicine
DX: R16.0 Hepatomegaly, not elsewhere classified (principal)
CPT/HCPCS: 76705

== ENCOUNTER 2023-08-08 13:57 | Inpatient (IN) | payer MEDICARE, OTHER, SELFPAY ==
[2023-08-08 13:58] VITALS: BP 131/89; PULSE 89; RESP 16; TEMP 36.4; O2SAT 98; BMI 19.8
--- NOTE | 2023-08-08 15:13 | CT_ITS ---
EXAMINATION : Head CT w/out contrast HISTORY : syncope COMPARISON : None. TECHNIQUE : Multiple contiguous axial images were obtained from the skull base to the vertex without intravenous contrast. A radiation dose optimization technique was used for this scan. FINDINGS : There is no evidence for acute intracranial hemorrhage, mass effect, or midline shift. There is no extra-axial fluid collection. There are periventricular white matter changes consistent with chronic microvascular ischemic disease. There is sulcal widening and ventricular enlargement consistent with cerebral atrophy. There is normal rodriguez-white differentiation, without CT evidence of acute ischemia or infarct. The skull base and calvarium are unremarkable. The orbits are unremarkable. The paranasal sinuses are clear. The mastoid air cells are well-aerated. The soft tissues are unremarkable. CT/Brain/Head without Contrast IMPRESSION: No acute intracranial abnormality. Chronic involutional and ischemic changes of the brain. Electronically Signed: Edis Torres MD at 16:45 EDT ,
--- NOTE | 2023-08-08 15:14 | EKG12_ITS ---
Test Reason : FALL/DIZZINESS Blood Pressure : / mmHG Vent. Rate : 061 BPM Atrial Rate : 061 BPM P-R Int : 174 ms QRS Dur : 090 ms QT Int : 390 ms P-R-T Axes : 078 -01 039 degrees QTc Int : 392 ms Normal sinus rhythm Septal infarct , age undetermined Abnormal ECG Confirmed by ESTIVEN GUAJARDO, TAMMY ([id number]), editor farm journal CELESTE DUMONT ([id number]) on 08/09/2023 11:37:16 AM Referred By: Jennifer Jackson Confirmed By:TAMMY JEAN-BAPTISTE MD
[2023-08-08] MEDS: 0.9% Normal Saline (1000mL) 1,000 ML 1000 ML IV (15:25)
[2023-08-08 15:32] LABS: Absolute Lymphocyte Count 1.13 X10^3/uL (0.83-4.51); Absolute Neutrophil Count 2.5 X10^3/uL (2.0-7.7); Basophil# 0.01 X10^3/uL; Basophil% 0.3 % (0-1); Eosinophil# 0.01 X10^3/uL; Eosinophils% 0.3 % (0-5); Hematocrit 37.6 % (37-47); Hemoglobin 12.8 g/dL (12.0-15.0); Lymphocyte # 1.13 X10^3/ul (0.83-4.51); Lymphocyte % 28.3 % (19-41); Mean Corpuscular Hgb 33.4 pg (27.0-32.0); Mean Corpuscular Volume 98.2 fL (81-99); Mean Platelet Vol. 8.7 fl (6.2-12.0); Monocyte# 0.29 X10^3/uL; Monocyte% 7.3 % (0-10); NRBC Flagged by Analyzer 0 % (0-5); Neutrophil # 2.54 X10^3/uL (2.7-7.7); Neutrophil % 63.3 % (47-70); Platelet Count 155 K/mm3 (150-450); RBC Distribution Width CV 12.3 % (11.6-14.6); RBC Distribution Width SD 44.2 fl (35.1-43.9); Red Blood Count 3.83 M/mm3 (4.2-5.4)
[2023-08-08 15:58] VITALS: BP 130/78; PULSE 68; RESP 15; O2SAT 98
--- NOTE | 2023-08-08 16:05 | RAD_ITS ---
INDICATION: sob EXAMINATION/TECHNIQUE: X-RAY - XR Chest 1 View COMPARISON: None. FINDINGS: Hyperinflated lungs. No definite acute lung findings. Tortuous and calcified thoracic aorta. The heart is not enlarged. No pleural effusion or pneumothorax. No acute osseous abnormalities. RAD/Chest 1 View (Portable) IMPRESSION: Hyperinflated lungs which can be seen in COPD. No acute radiographic abnormalities. Electronically Signed: Edis Torres MD at 16:47 EDT ,
[2023-08-08 16:13] LABS: Anion Gap 4 (5-15); BUN 19 mg/dL (7-18); BUN/Creat Ratio 20.2 RATIO (10-20); Calcium,Total 8.6 mg/dL (8.5-10.1); Chloride 103 mmol/L (98-107); Creatinine, Serum 0.94 mg/dL (0.55-1.02); EST Glomerular Filtration Rate 62 mL/min (>60); Est Glom Filt Rate - Afr Amer 75 mL/min (>60); Estimated Creatinine Clearance 42.15 ml/min; Glucose 100 mg/dL (74-106); Potassium 3.6 mmol/L (3.5-5.1); Sodium Level 136 mmol/L (136-145); Troponin-I HS (w/2H Reflex) 4 pg/mL (3.0-54.0)
[2023-08-08 16:58] LABS: Mucous, Urine 0 SEEN /hpf (<or=2+); Red Blood Cells-Urine 0 SEEN /hpf (0-5); Squamous Epithelial Cells - UA 0 SEEN /hpf (5-10)
[2023-08-08 17:00] VITALS: BP 147/68; PULSE 78; RESP 19; O2SAT 96
[2023-08-08 17:00] LABS: Color, Urine Yellow (Yellow); Glucose, Dipstick Normal (Normal); Ketone-Dipstick Negative (Negative); Leukocyte Esterase-Dipstick 500 /ul (Negative); Nitrite-Dipstick Negative (Negative); Occult Blood-Urine 10 /ul (Negative); Protein-Dipstick 15 mg/dl (Negative); Urine Bilirubin Dipstick Negative (Negative); Urine Clarity Clear (Clear); Urine Urobilinogen Normal (Normal)
[2023-08-08 17:28] LABS: Reflex Troponin-HS? (from REC) Y
[2023-08-08 17:50] LABS: Bacteria 1+ /hpf (None Seen); White Blood Cells 10-25 SEEN /hpf (0-5)
[2023-08-08 18:07] LABS: Troponin-I HS 5 pg/mL (3.0-54.0)
[2023-08-08] MEDS: Ceftriaxone 1 GM/50 ML BAG IV (18:21)
--- NOTE | 2023-08-08 18:24 | EX.ED.DYSGE1 ---
HPI History of Present Illness Chief Complaint: Weakness Informant: patient Narrative Narrative: 73-year-old female presenting with generalized weakness and fatigue. Patient had a syncopal episode prior to arrival. Patient states she did not feel this coming on and she just collapsed to the ground. She denies chest pain or shortness of breath. Denies fever. She states she has felt weak and tired for the last few days. She complains of mild headache. Denies nausea or vomiting. Denies abdominal pain. She states it took a few minutes for her to get up but she was able to ambulate after the syncopal episode. Prior similar symptoms: No Recent Illness/Hospitalization: No PFSH PFSH Medical History (Updated 08/08/23 @ 19:[address] Jennifer Jackson MD) BPV (benign positional vertigo) Chronic idiopathic thrombocytopenia Chronic neutropenia CKD (chronic kidney disease), stage II Home Medications omega-3 fatty acids 1,000 mg capsule 1,000 mg PO DAILY SUPPLEMENT 07/29/18 [History Last Taken 08/08/23] ibuprofen 600 mg tablet 600 mg PO Q8H PRN musculoskeletal pain 04/23/23 [History Last Taken Unknown] Allergy/AdvReac Type Severity Reaction Status Date / Time No Known Allergies Allergy Verified 08/08/23 13:58 Family History (Updated 08/08/23 @ 19:[address] Jennifer Jackson MD) Mother Cancer Heart disease Heart failure Hypertension Father Pulmonary fibrosis Surgical History Hx of cholecystectomy Social History (Updated 08/08/23 @ 19:[address] Jennifer Jackson MD) household members: spouse Smoking Status: Never smoker alcohol intake: never substance use type: does not use ROS ROS ED Constitutional Constitutional ED: Denies fever(s) Eyes Eyes: Denies change in vision ENT ENT ED: Denies rhinorrhea or sore throat Cardiovascular Cardiovascular: Denies chest pain or palpitations Respiratory/Chest Respiratory/Chest: Denies cough or dyspnea Gastrointestinal Gastrointestinal: Denies abdominal pain, diarrhea, nausea or vomiting Genitourinary Genitourinary ED: Denies dysuria Musculoskeletal Musculoskeletal: Denies myalgias Integumentary Denies rash Neurologic Neurologic: Reports headache(s) Psychiatric Psychiatric: Denies suicidal thoughts EXAM Physical Exam Const Vital Signs: 08/08/23 13:58 08/08/23 14:12 08/08/23 15:58 Temperature 97.6 F L Temperature Source Temporal Pulse Rate 89 68 Respiratory Rate 16 15 Respiratory Effort Normal Non-Labored Respiratory Pattern Normal Blood Pressure 131/89 H 130/78 H Blood Pressure Mean 103 95 Pulse Ox 98 98 Oxygen Delivery Method Room Air Room Air 08/08/23 17:00 08/08/23 19:00 08/08/23 19:00 Temperature 98.1 F 98.1 F Temperature Source Temporal Pulse Rate 78 75 75 Respiratory Rate 19 H 16 16 Respiratory Effort Respiratory Pattern Blood Pressure 147/68 H 137/67 H 137/67 H Blood Pressure Mean 94 90 90 Pulse Ox 96 99 99 Oxygen Delivery Method Room Air Room Air 08/08/23 19:00 Temperature 98.1 F Temperature Source Temporal Pulse Rate 75 Respiratory Rate 16 Respiratory Effort Respiratory Pattern Blood Pressure 137/67 H Blood Pressure Mean 90 Pulse Ox 99 Oxygen Delivery Method Room Air Positive well nourished and well developed General Appearance ED: well developed HEENT Reports normocephalic and head/scalp atraumatic Eyes PERRL and EOMs intact bilaterally Neck supple General: Negative for tenderness Chest Wall inspection of chest normal Resp normal respiratory effort and clear to auscultation bilaterally Cardio regular rate and regular rhythm GI non-tender and non-distended Palpation: soft; Negative for guarding or rebound tenderness present no CVA tenderness Extremity normal to inspection Neuro oriented x3 Sensorium / Orientation: alert Psych mental status grossly normal Skin no rashes or lesions noted MDM MDM MDM Narrative Medical decision making narrative: 73-year-old female presenting with generalized weakness, fatigue, syncopal episode. Differential diagnosis includes vasovagal syncope, dysrhythmia, ACS, viral syndrome, UTI. EKG is sinus rhythm rate of 61 with no acute ischemic changes. CBC unremarkable, white count 4.0. Chemistries unremarkable other than BUN 19. Troponin and delta troponin negative. Urinalysis shows 10-25 white blood cells, 1+ bacteria. Urine culture was sent. She was given Rocephin IV. COVID, influenza negative. Chest x-ray read by myself and radiology shows no acute process. CT head shows no acute process. Patient continues to feel weak and fatigued. Discussed with hospitalist for admission. History & Record Review Discussion w/independent historian: Patient and Family Additional record(s) reviewed:: Prior labs Lab Data Attestation: I reviewed the patient's lab results. Labs: Laboratory Results - last 24 hr 08/08/23 08/08/23 08/08/23 14:35 16:50 17:35 WBC 4.0 L RBC 3.83 L Hgb 12.8 Hct 37.6 MCV 98.2 MCH 33.4 H MCHC 34.0 RDW Std Deviation 44.2 H RDW Coeff of Petros 12.3 Plt Count 155 MPV 8.7 Immature Gran % (Auto) 0.500 Neut % (Auto) 63.3 Lymph % (Auto) 28.3 [place] % (Auto) 7.3 Eos % (Auto) 0.3 Baso % (Auto) 0.3 Absolute Neuts (auto) 2.5 Absolute Lymphs (auto) 1.13 Nucleated RBC % 0 Sodium 136 Potassium 3.6 Chloride 103 Carbon Dioxide 29.0 Anion Gap 4 L BUN 19 H Creatinine 0.94 Estim Creat Clear Calc 42.15 Est GFR (MDRD) Af Amer 75 Est GFR (MDRD) Non-Af 62 BUN/Creatinine Ratio 20.2 H Glucose 100 Calcium 8.6 Troponin I High Sens 4 5 Urine Color Yellow Urine Clarity Clear Urine pH 6.0 Ur Specific [place] 1.020 Urine Protein 15 H Urine Glucose (UA) Normal Urine Ketones Negative Urine Occult Blood 10 H Urine Nitrite Negative Urine Bilirubin Negative Urine Urobilinogen Normal Ur Leukocyte Esterase 500 H Urine RBC 0 SEEN Urine WBC 10-25 SEEN Ur Squamous Epith Cells 0 SEEN Urine Bacteria 1+ Urine Mucus 0 SEEN Radiography Chest X-Ray - ED: 1 View, Read by ED Physician, Read by Radiologist and No Acute Disease Diagnostic Testing: Clinical Impression(s) from Imaging Studies Brain CT 08/08/23 15:13 IMPRESSION: No acute intracranial abnormality. Chronic involutional and ischemic changes of the brain. Electronically Signed: Edis Torres MD at 16:45 EDT , Chest X-Ray 08/08/23 16:05 IMPRESSION: Hyperinflated lungs which can be seen in COPD. No acute radiographic abnormalities. Electronically Signed: Edis Torres MD at 16:47 EDT , Discharge Plan Triage Chief Complaint: Weakness ED Provider: Roula Dominguez Dx/Rx/DC Orders Clinical Impression: UTI (urinary tract infection), Generalized weakness, Syncope Prescriptions: No Action ibuprofen 600 mg tablet 600 mg PO Q8H PRN (Reason: musculoskeletal pain) omega-3 fatty acids 1,000 MG capsule 1,000 mg PO DAILY Primary Care Provider: Norah Munson Referrals: Norah Munson MD [Primary Care Provider] - Disposition Disposition: Acute Care Hospital [facility]
[2023-08-08 19:00] VITALS: BP 137/67; PULSE 75; RESP 16; TEMP 36.7; O2SAT 99
--- NOTE | 2023-08-08 19:25 | PCM.HP.STD ---
HPI - General General Date of Admission: 08/08/23 Date of Service: 08/08/23 Chief Complaint: Weakness, malaise, fatigue, syncopal event. HPI Narrative The patient is a 73 y/o w/ PMHx: CKD stage II per GFR trending, Hx Chronic thrombocytopenia, Chronic neutropneia, Hx BPPV who presents to the [facility] ED on 08/08/23 with history of generalized fatigue, malaise and weakness x 4-5 days however it has been worsening with increased urinary frequency and itching/burning sensation over the last 3-4 days with reported sudden onset syncopal event just prior to deciding to come to the ED with no specific prodrome such as lightheadedness, dizziness, chest pain or dyspnea only a mild headache lasting only seconds but it did take a couple minutes to get up and and ambulate after this episode with no recent fevers or chills prompting eventual ED evaluation. She also notes some BL lower back discomfort and occasional LLQ abdominal sharp discomfort but this only lasts seconds. She has had decreased appetite. Workup in the ED included T97.6, heart rate 86, BP 131/89, respiratory rate 16, 98% on room air with most recent repeat vital signs T98.1, heart rate 75, BP 137/67, respiratory rate 16, 99% on room air, CBC with WBC 4.0, hemoglobin 12.8, MCV 98.2, platelet 155 without marked shift, BMP with BUN/creatinine 19/0.94, GFR 62, initial troponin 4 with repeat delta 5, urinalysis with specific remedy 1.020, urine protein 15, occult blood 10, negative nitrite, leukocyte Estrace 500 with urine WBCs 10-25 with 1+ urine bacteria, urine culture pending per ED, SARS COVID/influenza/RSV PCR negative, chest x-ray with chronic COPD type changes otherwise no acute cardiopulmonary findings, CT brain with chronic involutional and ischemic changes of the brain with no acute intracranial findings otherwise, EKG with SR with non-specific changes similar to prior. In the ED patient ministered 1 L normal saline as well as Rocephin 1 g IV x 1. [facility] Medical History (Updated 08/08/23 @ 19:[address] Jennifer Jackson MD) BPV (benign positional vertigo) Chronic idiopathic thrombocytopenia Chronic neutropenia CKD (chronic kidney disease), stage II Home Medications omega-3 fatty acids 1,000 mg capsule 1,000 mg PO DAILY SUPPLEMENT 07/29/18 [History Last Taken 08/08/23] ibuprofen 600 mg tablet 600 mg PO Q8H PRN musculoskeletal pain 04/23/23 [History Last Taken Unknown] Allergy/AdvReac Type Severity Reaction Status Date / Time No Known Allergies Allergy Verified 08/08/23 13:58 Family History (Updated 08/08/23 @ 19:[address] Jennifer Jackson MD) Mother Cancer Heart disease Heart failure Hypertension Father Pulmonary fibrosis Surgical History Hx of cholecystectomy Social History (Updated 08/08/23 @ 19:[address] Jennifer Jackson MD) household members: spouse Smoking Status: Never smoker alcohol intake: never substance use type: does not use ROS ROS Narrative Admission Review of Systems: CONSTITUTIONAL: No weight loss, fever, chills, + weakness or fatigue. HEENT: + Generalized mild headache. Eyes: No visual loss, blurred vision, double vision or yellow sclerae. Ears, Nose, Throat: No hearing loss, sneezing, congestion, runny nose or sore throat. SKIN: No rash or itching, lesions, wounds. CARDIOVASCULAR: + Syncopal event. No chest pain, chest pressure or chest discomfort, palpitations, edema, orthopnea. RESPIRATORY: No shortness of breath, cough or sputum, wheezing, hemoptysis. GASTROINTESTINAL: + anorexia, very transient intermittent left lower quadrant abdominal pain. No nausea, vomiting or diarrhea, melena, BRBPR. GENITOURINARY: + dysuria, frequency, bilateral lumbar back discomfort. No urgency or retention. NEUROLOGICAL: + Syncopal event with no prodrome, Occasional mild generalized headache. No paralysis, ataxia, numbness or tingling in the extremities, focal weakness, change in bowel or bladder control, seizure. MUSCULOSKELETAL: + muscle, back pain, joint pain or stiffness. HEMATOLOGIC: No anemia. Easy bleeding/bruising. LYMPHATICS: No enlarged nodes. No history of splenectomy. PSYCHIATRIC: No history of depression or anxiety. ENDOCRINOLOGIC: No reports of sweating, cold or heat intolerance. No polyuria or polydipsia. ALLERGIES: No history of asthma, hives, eczema or rhinitis. Vital Signs Vital Signs Vital Signs: 08/08/23 13:58 08/08/23 14:12 08/08/23 15:58 Temperature 97.6 F L Temperature Source Temporal Pulse Rate 89 68 Respiratory Rate 16 15 Respiratory Effort Normal Non-Labored Respiratory Pattern Normal Blood Pressure 131/89 H 130/78 H Blood Pressure Mean 103 95 Pulse Ox 98 98 Oxygen Delivery Method Room Air Room Air 08/08/23 17:00 08/08/23 19:00 08/08/23 19:00 Temperature 98.1 F 98.1 F Temperature Source Temporal Pulse Rate 78 75 75 Respiratory Rate 19 H 16 16 Respiratory Effort Respiratory Pattern Blood Pressure 147/68 H 137/67 H 137/67 H Blood Pressure Mean 94 90 90 Pulse Ox 96 99 99 Oxygen Delivery Method Room Air Room Air 08/08/23 19:00 Temperature 98.1 F Temperature Source Temporal Pulse Rate 75 Respiratory Rate 16 Respiratory Effort Respiratory Pattern Blood Pressure 137/67 H Blood Pressure Mean 90 Pulse Ox 99 Oxygen Delivery Method Room Air Weight Weight: 112 lb 1.6 oz Body Mass Index (BMI) 19.8 Physical Exam Narrative Physical Examination: General: Awake, alert, oriented x 3 and cooperative, laying in the ED bed, fatigued, mildly ill-appearing. Skin: Normal color, normal turgor, no icterus, no cyanosis except occasional staged ecchymoses. HEENT: AT/NC, EOMI, PERRLA, dry MM, no carotid bruits or JVD noted. Lungs: Mildly diminished, greater bases, proper effort, no rales, ronchi or wheezing. Heart: Currently regular rate and rhythm; no gallop, rub audible. Abdomen: Soft, no reproducible abdominal discomfort, no flank pain with palpation, ND, mildly hyperactive BS, no appreciated HSM. Extremities: No cyanosis, clubbing, or edema. Neurological: Patient awake, alert, oriented as noted, cognitive function intact; pupils equally reactive to light and accommodation, cranial nerves grossly normal, moving all 4 extremities, no focal deficits, strength moderately to severely globally decreased secondary to acute presentation complaints. Psychiatric: Affect appears flat, fatigued, mildly ill-appearing, no acute evidence of depressive or anxiety feelings. Results Lab / Micro Data 08/08/23 14:35 08/08/23 14:35 Labs: Laboratory Results - last 24 hr 08/08/23 14:35: WBC 4.0 L, RBC 3.83 L, Hgb 12.8, Hct 37.6, MCV 98.2, MCH 33.4 H, MCHC 34.0, RDW Std Deviation 44.2 H, RDW Coeff of Petros 12.3, Plt Count 155, MPV 8.7, Immature Gran % (Auto) 0.500, Neut % (Auto) 63.3, Lymph % (Auto) 28.3, [place] % (Auto) 7.3, Eos % (Auto) 0.3, Baso % (Auto) 0.3, Absolute Neuts (auto) 2.5, Absolute Lymphs (auto) 1.13, Nucleated RBC % 0, Sodium 136, Potassium 3.6, Chloride 103, Carbon Dioxide 29.0, Anion Gap 4 L, BUN 19 H, Creatinine 0.94, Estim Creat Clear Calc 42.15, Est GFR (MDRD) Af Amer 75, Est GFR (MDRD) Non-Af 62, BUN/Creatinine Ratio 20.2 H, Glucose 100, Calcium 8.6, Troponin I High Sens 4 08/08/23 16:50: Urine Color Yellow, Urine Clarity Clear, Urine pH 6.0, Ur Specific [place] 1.020, Urine Protein 15 H, Urine Glucose (UA) Normal, Urine Ketones Negative, Urine Occult Blood 10 H, Urine Nitrite Negative, Urine Bilirubin Negative, Urine Urobilinogen Normal, Ur Leukocyte Esterase 500 H, Urine RBC 0 SEEN, Urine WBC 10-25 SEEN, Ur Squamous Epith Cells 0 SEEN, Urine Bacteria 1+, Urine Mucus 0 SEEN 08/08/23 17:35: Troponin I High Sens 5 Micro: Microbiology 08/08/23 15:40 Mucosa - Nose SARS-CoV-2, Influenza & RSV (PCR) - Final Imaging Radiology Impression Brain CT 08/08/23 15:13 IMPRESSION: No acute intracranial abnormality. Chronic involutional and ischemic changes of the brain. Electronically Signed: Edis Torres MD at 16:45 EDT , Chest X-Ray 08/08/23 16:05 IMPRESSION: Hyperinflated lungs which can be seen in COPD. No acute radiographic abnormalities. Electronically Signed: Edis Torres MD at 16:47 EDT , Assessment & Plan Assessment/Plan (1) Syncope: (2) UTI (urinary tract infection): PLAN: Plan The patient is a 73 y/o w/ PMHx: CKD stage II per GFR trending, Hx Chronic thrombocytopenia, Chronic neutropneia, Hx BPPV who presents to the [facility] ED on 08/08/23 with history of generalized fatigue, malaise and weakness with reported sudden onset syncopal event just prior to deciding to come to the ED with no specific prodrome such as lightheadedness, dizziness, chest pain or dyspnea only a mild headache lasting only seconds but it did take a couple minutes to get up and and ambulate after this episode with no recent fevers or chills prompting eventual ED evaluation. #1. Syncopal Event, suspected related with #2: EKG in ED w/ sinus rhythm without evidence of acute ischemia, CXR w/ COPD type changes, initial trop normal with repeat delta also normal. Will admit to PCU, place on a monitored bed to assure no acute myocardial infarction with serial cardiac enzymes and EKGs. Will maintain on fall precautions, obtain admission orthostatic and AM orthostatic VS and increase hydration if appropriate. If no marked findings and recurrent event despite treatment as noted #2 or further concerns arise may need to also consider ECHO. PT/OT/CM consultation to ascertain stability and discharge needs. #2. Acute Complicated Urinary Tract Infection: Suspect possible etiology for #1 as noted above, UA upon ED evaluation remarkable, pending UCx, will maintain on judicious, monitor I/Os, continue IV Rocephin w/ transition as able pending sensitivities and speciation. #3. History of benign positional vertigo: As noted patient with no specific prodrome prior to her syncopal event, likely unrelated with BPPV history. #4. History of chronic thrombocytopenia: Admission platelet 155, also noted to be normal 08/22/2021 at platelet 178 but previous to this had been 100-1 20 range however this was in 2019, continue to trend CBC. #5. Chronic neutropenia, unclear etiology: Admission WBC 4.0, prior to this 08/22/2021 WBC 3.4 with prior to this in 2019 noted WBC 5-7 range, will continue to trend CBC. #6. Chronic Kidney Disease Stage II: Admission BUN/Cr 19/0.94, GFR 62, baseline renal function primarily 0.7-0.8, most recent GFR previously 08/22/2273 and was primarily 70-80 range prior to this recent presentation, repeat BMP in AM to further elucidate. #7. DVT prophylaxis: Lovenox. #8. CODE status: Patient GONZALES is her daughter Gail and living will she believes is also in place. Discussed CODE status at length including difference between FULL code, DNR-CCA and DNR-CC status. Following discussions about the differences in these status, requested Full Code status. Advanced Care Planning Face to Face Time: 16 minutes. Charges/Coding Visit Charges Inpatient E&M: 39216 Init Hosp L3 Procedures Hospitalists Procedures: 34161 Advncd Care Plan 30 Min
[2023-08-08 20:22] VITALS: BMI 18.3
[2023-08-08 20:32] VITALS: BP 134/71; PULSE 63; RESP 18; TEMP 37.1; O2SAT 100
[2023-08-08] MEDS: 0.9% Normal Saline (1000mL) 1,000 ML 100 ML IV (20:46)
[2023-08-08 21:44] LABS: Troponin-I HS 5 pg/mL (3.0-54.0)
[2023-08-08 23:28] VITALS: BP 118/66; BP 126/61; BP 134/68; PULSE 59; PULSE 65; RESP 16; TEMP 36.9; O2SAT 99
[2023-08-09] VITALS (9 sets, daily range): BP systolic 99–140; BP diastolic 48–59; PULSE 51–81; RESP 16; TEMP 36.6–37.2; O2SAT 95–98; BMI 18.3
[2023-08-09] MEDS: Senna/Docusate Sodium 1 Tablet 2 TABLET PO (05:59)
[2023-08-09] MEDS: 0.9% Normal Saline (1000mL) 1,000 ML 100 ML IV (06:55)
[2023-08-09 07:20] LABS: Absolute Lymphocyte Count 1.27 X10^3/uL (0.83-4.51); Basophil# 0.02 X10^3/uL; Basophil% 0.6 % (0-1); Eosinophil# 0.03 X10^3/uL; Eosinophils% 0.8 % (0-5); Hemoglobin 11.3 g/dL (12.0-15.0); Lymphocyte # 1.27 X10^3/ul (0.83-4.51); Lymphocyte % 35.6 % (19-41); Mean Corp Hgb Conc 34.2 g/dL (32-36); Mean Corpuscular Hgb 32.9 pg (27.0-32.0); Mean Corpuscular Volume 96.2 fL (81-99); Mean Platelet Vol. 9.1 fl (6.2-12.0); Monocyte# 0.22 X10^3/uL; Monocyte% 6.2 % (0-10); NRBC Flagged by Analyzer 0 % (0-5); Neutrophil # 2.02 X10^3/uL (2.7-7.7); Neutrophil % 56.5 % (47-70); Platelet Count 134 K/mm3 (150-450); RBC Distribution Width CV 12.1 % (11.6-14.6); RBC Distribution Width SD 42.4 fl (35.1-43.9); Red Blood Count 3.43 M/mm3 (4.2-5.4); White Blood Count 3.6 K/mm3 (4.4-11.0)
[2023-08-09 07:45] LABS: ALB/GLOB Ratio 1.1 RATIO (0.9-2.4); AST(SGOT) 13 U/L (15-37); Alanine Aminotransfer ALT/SGPT 15 U/L (13-56); Albumin, Serum 3.2 g/dL (3.2-5.0); Alkaline Phosphatase 38 U/L (45-117); Anion Gap 7 (5-15); BUN 12 mg/dL (7-18); BUN/Creat Ratio 18.2 RATIO (10-20); Calcium,Total 8.4 mg/dL (8.5-10.1); Chloride 105 mmol/L (98-107); Creatinine, Serum 0.66 mg/dL (0.55-1.02); EST Glomerular Filtration Rate 93 mL/min (>60); Est Glom Filt Rate - Afr Amer 112 mL/min (>60); Estimated Creatinine Clearance 50.16 ml/min; Glucose 97 mg/dL (74-106); Potassium 3.9 mmol/L (3.5-5.1); Protein, Total 6.2 g/dL (6.4-8.2); Sodium Level 136 mmol/L (136-145)
[2023-08-09] MEDS: Acetaminophen 325 MG Tablet 650 MG PO ×2 (08:12→20:31)
[2023-08-09] MEDS: Enoxaparin 40 MG/0.4 ML Syringe SC (09:46)
[2023-08-09] MEDS: Ceftriaxone 1 GM/50 ML BAG IV (09:46)
--- NOTE | 2023-08-09 09:59 | PN.HOSP_ITS ---
Reason for Visit Reason for Visit: Diagnoses Urinary tract infection, site not specified (08/08/23) Syncope and collapse (08/08/23) Subjective Subjective Patient is a 73-year-old lady admitted progressive generalized weakness and fatigue which was followed by a presyncopal episode. Her evaluation on admission was consistent with acute cystitis admitted to monitored bed for further management Objective Data Objective Data Vital Signs: Vital Signs Temp Pulse Resp BP Pulse Ox O2 Del Method 98.6 F 56 L 16 140/50 H 98 Room Air 08/09/23 08:38 08/09/23 08:38 08/09/23 08:38 08/09/23 08:38 08/09/23 08:38 08/09/23 08:53 Oxygen Delivery Method Room Air Weight: 51.5 kg Body Mass Index (BMI) 18.3 Intake & Output: Intake and Output for Last 24 Hours 08/07/23 08/08/23 08/09/23 23:59 23:59 23:59 Intake Total 1050 / 1050 1000 / 1000 Balance 1050 / 1050 1000 / 1000 Lab / Micro Data 08/09/23 06:15 08/09/23 06:15 Labs: Laboratory Results - last 24 hr 08/08/23 14:35: WBC 4.0 L, RBC 3.83 L, Hgb 12.8, Hct 37.6, MCV 98.2, MCH 33.4 H, MCHC 34.0, RDW Std Deviation 44.2 H, RDW Coeff of Petros 12.3, Plt Count 155, MPV 8.7, Immature Gran % (Auto) 0.500, Neut % (Auto) 63.3, Lymph % (Auto) 28.3, [place] % (Auto) 7.3, Eos % (Auto) 0.3, Baso % (Auto) 0.3, Absolute Neuts (auto) 2.5, Absolute Lymphs (auto) 1.13, Nucleated RBC % 0, Sodium 136, Potassium 3.6, Chloride 103, Carbon Dioxide 29.0, Anion Gap 4 L, BUN 19 H, Creatinine 0.94, Estim Creat Clear Calc 42.15, Est GFR (MDRD) Af Amer 75, Est GFR (MDRD) Non-Af 62, BUN/Creatinine Ratio 20.2 H, Glucose 100, Calcium 8.6, Troponin I High Sens 4 08/08/23 16:50: Urine Color Yellow, Urine Clarity Clear, Urine pH 6.0, Ur Specific [place] 1.020, Urine Protein 15 H, Urine Glucose (UA) Normal, Urine Ketones Negative, Urine Occult Blood 10 H, Urine Nitrite Negative, Urine Bilirubin Negative, Urine Urobilinogen Normal, Ur Leukocyte Esterase 500 H, Urine RBC 0 SEEN, Urine WBC 10-25 SEEN, Ur Squamous Epith Cells 0 SEEN, Urine Bacteria 1+, Urine Mucus 0 SEEN 08/08/23 17:35: Magnesium 2.0, Troponin I High Sens 5 08/08/23 21:00: Troponin I High Sens 5 08/09/23 06:15: WBC 3.6 L, RBC 3.43 L, Hgb 11.3 L, Hct 33.0 L, MCV 96.2, MCH 32.9 H, MCHC 34.2, RDW Std Deviation 42.4, RDW Coeff of Petros 12.1, Plt Count 134 L, MPV 9.1, Immature Gran % (Auto) 0.300, Neut % (Auto) 56.5, Lymph % (Auto) 35.6, [place] % (Auto) 6.2, Eos % (Auto) 0.8, Baso % (Auto) 0.6, Absolute Neuts (auto) 2.0, Absolute Lymphs (auto) 1.27, Nucleated RBC % 0, Sodium 136, Potassium 3.9, Chloride 105, Carbon Dioxide 24.0, Anion Gap 7, BUN 12, Creatinine 0.66, Estim Creat Clear Calc 50.16, Est GFR (MDRD) Af Amer 112, Est GFR (MDRD) Non-Af 93, BUN/Creatinine Ratio 18.2, Glucose 97, Calcium 8.4 L, Total Bilirubin 0.90, AST 13 L, ALT 15, Alkaline Phosphatase 38 L, Total Protein 6.2 L, Albumin 3.2, Globulin 3.0, Albumin/Globulin Ratio 1.1 Micro: Microbiology 08/08/23 15:40 Mucosa - Nose SARS-CoV-2, Influenza & RSV (PCR) - Final Radiography Diagnostic Testing: Radiology Impression Brain CT 08/08/23 15:13 IMPRESSION: No acute intracranial abnormality. Chronic involutional and ischemic changes of the brain. Electronically Signed: Edis Torres MD at 16:45 EDT , Chest X-Ray 08/08/23 16:05 IMPRESSION: Hyperinflated lungs which can be seen in COPD. No acute radiographic abnormalities. Electronically Signed: Edis Torres MD at 16:47 EDT , Physical Exam Narrative GENERAL: cooperative HEENT: Atraumatic; normocephalic EYES; Anicteric, Normal Conjunctiva NECK; supple, normal thyroid, RESPIRATORY: Diminished to auscultation CARDIOVASCULAR: Regular S1 S2, GI: soft, normoactive bowel sounds, : No Renal angle tenderness; EXTREMITIES: No edema, no clubbing, MUSCULOSKELETAL: no muscle wasting NEURO: Awake; no lateralizing signs. SKIN: No Rash PSYCH; Flat affect Assessment & Plan Assessment/Plan (1) Syncope: (2) UTI (urinary tract infection): PLAN: Plan Patient is a 73-year-old lady admitted progressive generalized weakness and fatigue which was followed by a presyncopal episode. Her evaluation on admission was consistent with acute cystitis admitted to monitored bed for further management 1. PreSyncopal episode ? Do suspect orthostatic hypotension. Patient has been admitted to monitored bed management IV fluid continuous telemetry monitoring serial cardiac enzymes as well as echo ordered 2. Acute complicated cystitis ? Patient started on ceftriaxone urine culture sent we will follow-up on result 3. History of BPPV ? Stable 4. Chronic kidney disease stage II rule out 5. Physical deconditioning - Requested for PT OT eval and social service assistant to assist with discharge planning 6. DVT prophylaxis ? SC Lovenox Time spent in the patient's overall evaluation,decision-making process, review of diagnostic data, adjustment of management, discussion with other providers, nursing nursing and ancillary staff involved in patient's care documentation,38 Minutes Charges/Coding Visit Charges Inpatient E&M: 28511 Subs Hosp L2
--- NOTE | 2023-08-09 10:55 | CASEMGMT ---
RN CM Face to Face with patient for initial transition planning/care coordination assessment. RN CM introduced self and role at [facility]. Patient lying in bed, alert and oriented. Patient willing to participate in assessment and is able to answer all questions appropriately. Care providers, pharmacy, and demographics verified. PCP: Jeimy Specialists: none [facility]erred [facility]acy[facility] Insurance: MCR, [employer] Prescription Benefit: yes Living Will/HPOA: yes, daughter Gail Mcghee LNOK: , daughter, son Living Arrangements: Patient lives with and son in a single story home with 4-5 steps and railing to enter the home. Patient states she is independent at home. Transportation: self, [employer] DME/HHC: Patient has shower chair, raised toilet, cane, walker, grab bars, wheelchair. No previous HHC or SNF Patient wishes to discharge home, denies need for home health at this time. Patient states he has no further needs or concerns at this time. CM to follow for discharge planning needs that may arise. Disposition Plan: Patient to discharge home with family support and follow-up plans in place. Karen DENG, RN, CM
[2023-08-09] MEDS: 0.9% Saline Lock 10 ML Syringe IV (20:31)
[2023-08-10 02:20] VITALS: BP 121/63; PULSE 59; RESP 16; TEMP 36.3; O2SAT 99
[2023-08-10 05:53] VITALS: BP 105/59; PULSE 64; RESP 18; TEMP 36.4; O2SAT 95
[2023-08-10] MEDS: Acetaminophen 325 MG Tablet 650 MG PO ×2 (05:56→22:14)
[2023-08-10 06:00] VITALS: BMI 19.2
[2023-08-10] MEDS: 0.9% Saline Lock 10 ML Syringe IV ×2 (06:13→10:57)
[2023-08-10] MEDS: Ondansetron 4 MG/2 ML Vial IV (06:13)
[2023-08-10 06:17] VITALS: BP 115/59; PULSE 63; RESP 18; O2SAT 100
--- NOTE | 2023-08-10 07:29 | PN.HOSP_ITS ---
Reason for Visit Reason for Visit: Diagnoses Urinary tract infection, site not specified (08/08/23) Syncope and collapse (08/08/23) Subjective Subjective Patient seen urine culture still pending. Had a bout of emesis this a.m. Objective Data Objective Data Vital Signs: Vital Signs Temp Pulse Resp BP Pulse Ox O2 Del Method 97.6 F L 63 18 115/59 L 100 Room Air 08/10/23 05:53 08/10/23 06:17 08/10/23 06:17 08/10/23 06:17 08/10/23 06:17 08/10/23 06:17 Oxygen Delivery Method Room Air Weight: 54 kg Body Mass Index (BMI) 19.2 Intake & Output: Intake and Output for Last 24 Hours 08/08/23 08/09/23 08/10/23 23:59 23:59 23:59 Intake Total 1050 / 1050 3350 / 3350 Balance 1050 / 1050 3350 / 3350 Lab / Micro Data 08/10/23 07:45 08/10/23 07:45 Labs: Laboratory Results - last 24 hr 08/09/23 06:15: Sodium 136, Potassium 3.9, Chloride 105, Carbon Dioxide 24.0, Anion Gap 7, BUN 12, Creatinine 0.66, Estim Creat Clear Calc 50.16, Est GFR (MDRD) Af Amer 112, Est GFR (MDRD) Non-Af 93, BUN/Creatinine Ratio 18.2, Glucose 97, Calcium 8.4 L, Total Bilirubin 0.90, AST 13 L, ALT 15, Alkaline Phosphatase 38 L, Total Protein 6.2 L, Albumin 3.2, Globulin 3.0, Albumin/Globulin Ratio 1.1 Micro: Microbiology 08/08/23 15:40 Mucosa - Nose SARS-CoV-2, Influenza & RSV (PCR) - Final Physical Exam Narrative GENERAL: cooperative HEENT: Atraumatic; normocephalic EYES; Anicteric, Normal Conjunctiva NECK; supple, normal thyroid, RESPIRATORY: Diminished to auscultation CARDIOVASCULAR: Regular S1 S2, GI: soft, normoactive bowel sounds, : No Renal angle tenderness; EXTREMITIES: No edema, no clubbing, MUSCULOSKELETAL: no muscle wasting NEURO: Awake; no lateralizing signs. SKIN: No Rash PSYCH; Flat affect Assessment & Plan Assessment/Plan (1) Syncope: (2) UTI (urinary tract infection): PLAN: Plan Patient is a 73-year-old lady admitted progressive generalized weakness and fatigue which was followed by a presyncopal episode. Her evaluation on admission was consistent with acute cystitis admitted to monitored bed for further management 1. PreSyncopal episode ? Do suspect orthostatic hypotension. Patient has been admitted to monitored bed management IV fluid continuous telemetry monitoring serial cardiac enzymes as well as echo ordered 2. Acute complicated cystitis ? Patient started on ceftriaxone urine culture sent we will follow-up on result ? 08/10/2023 urine cultures pending. Patient had a bout of emesis this a.m. treated symptomatically 3. History of BPPV ? Stable 4. Chronic kidney disease stage II rule out 5. Physical deconditioning - Requested for PT OT eval and social science manager to assist with discharge planning 6. DVT prophylaxis ? [place] Lovenox Time spent in the patient's overall evaluation,decision-making process, review of diagnostic data, adjustment of management, discussion with other providers, nursing nursing and ancillary staff involved in patient's care documentation, 35 Minutes Charges/Coding Visit Charges Inpatient E&M: 78543 Subs Hosp L2
[2023-08-10 07:51] VITALS: BP 98/53; PULSE 58; RESP 16; TEMP 36.8; O2SAT 96
[2023-08-10 08:00] LABS: Absolute Lymphocyte Count 0.68 X10^3/uL (0.83-4.51); Absolute Neutrophil Count 2.7 X10^3/uL (2.0-7.7); Basophil# 0.01 X10^3/uL; Basophil% 0.3 % (0-1); Eosinophil# 0.01 X10^3/uL; Eosinophils% 0.3 % (0-5); Hematocrit 32.2 % (37-47); Hemoglobin 11.1 g/dL (12.0-15.0); Lymphocyte # 0.68 X10^3/ul (0.83-4.51); Lymphocyte % 19.5 % (19-41); Mean Corp Hgb Conc 34.5 g/dL (32-36); Mean Corpuscular Hgb 32.7 pg (27.0-32.0); Mean Platelet Vol. 8.6 fl (6.2-12.0); Monocyte# 0.14 X10^3/uL; NRBC Flagged by Analyzer 0 % (0-5); Neutrophil # 2.65 X10^3/uL (2.7-7.7); Neutrophil % 75.9 % (47-70); Platelet Count 130 K/mm3 (150-450); RBC Distribution Width CV 12.3 % (11.6-14.6); RBC Distribution Width SD 42.1 fl (35.1-43.9); Red Blood Count 3.39 M/mm3 (4.2-5.4); White Blood Count 3.5 K/mm3 (4.4-11.0)
[2023-08-10 09:03] LABS: Anion Gap 9 (5-15); BUN 14 mg/dL (7-18); BUN/Creat Ratio 16.7 RATIO (10-20); Calcium,Total 8.5 mg/dL (8.5-10.1); Chloride 104 mmol/L (98-107); Creatinine, Serum 0.84 mg/dL (0.55-1.02); EST Glomerular Filtration Rate 70 mL/min (>60); Est Glom Filt Rate - Afr Amer 85 mL/min (>60); Estimated Creatinine Clearance 50.09 ml/min; Glucose 185 mg/dL (74-106); Magnesium 1.9 mg/dL (1.6-2.6); Phosphorus 2.8 mg/dL (2.5-4.9); Potassium 3.6 mmol/L (3.5-5.1); Sodium Level 135 mmol/L (136-145)
--- NOTE | 2023-08-10 10:21 | ECHOD_ITS ---
Reason For Study: SYNCOPE Procedure This was a 2D Doppler, Color Flow transthoracic echocardiogram. Exam performed portable in patient room. Left Ventricle Normal LV size. Left ventricular systolic function is normal. The estimated ejection fraction is 60 %. No regional wall motion abnormalities noted. Right Ventricle Normal RV size. Normal systolic function. Atria Normal left atrium. Normal right atrium. Mitral Valve Normal mitral valve. Tricuspid Valve Normal tricuspid valve. Mild tricuspid valve insufficiency. Pulmonary artery systolic pressure is 20 mmHg. Great Vessels Normal aortic root. The pulmonary artery is normal size. Normal inferior vena cava. Pericardium/Pleural No pericardial effusion. MMode/2D Measurements & Calculations LVIDd: 3.4 cm IVSd: 1.3 cm LAV(MOD-bp): 31.8 ml LVIDs: 2.6 cm LVPWd: 1.6 cm LAV(MOD-bp) Indexed: 19.8 ml/m2 RVDd: 2.9 cm FS: 23.2 % LAV(MOD-sp2): 28.4 ml LAV(MOD-sp4): 31.7 ml LVAd ap4: 18.9 cm2 SV(MOD-sp4): 32.8 ml SV(sp4-el): 33.6 ml LVLd ap4: 6.2 cm EDV(MOD-sp4): 48.6 ml EDV(sp4-el): 48.6 ml LVAs ap4: 9.4 cm2 LVLs ap4: 5.0 cm ESV(MOD-sp4): 15.8 ml ESV(sp4-el): 15.0 ml EF(MOD-sp4): 67.5 % EF(sp4-el): 69.2 % LA A4 area: 13.9 cm2 LA dimension(2D): 2.2 cm RA A4 area: 15.8 cm2 TAPSE: 2.1 cm Time Measurements MV dec time: 0.32 sec Doppler Measurements & Calculations MV E max anurag: 67.1 cm/sec Lat Peak E' Anurag: 9.8 cm/sec Med Peak E' Anurag: 8.0 cm/sec MV A max anurag: 65.3 cm/sec E/E' lat: 6.8 E/E' med: 8.4 MV E/A: 1.0 MV V2 max: 78.2 cm/sec Ao V2 max: 128.8 cm/sec MV max P.4 mmHg MV dec slope: 211.5 cm/sec2 Ao max P.6 mmHg MV V2 mean: 46.0 cm/sec Ao V2 mean: 87.0 cm/sec MV mean P.99 mmHg Ao mean P.5 mmHg MV V2 VTI: 35.7 cm Ao V2 VTI: 27.8 cm AV (velocity ratio): 0.92 LV V1 max: 116.6 cm/sec PA V2 max: 58.7 cm/sec TR max anurag: 205.9 cm/sec LV V1 max P.4 mmHg PA V2 mean: 39.3 cm/sec TR max P.0 mmHg LV V1 mean P.0 mmHg LV V1 mean: 81.0 cm/sec LV V1 VTI: 25.6 cm ECHO/Echo Complete Interpretation Summary Normal LV size. Left ventricular systolic function is normal. The estimated ejection fraction is 60 %. Structurally normal valves. Ordering Physician: Keny Hunter Referring Physician: Jennifer Jackson Performed By: Suzanne Meza RCS
[2023-08-10] MEDS: Enoxaparin 40 MG/0.4 ML Syringe SC (10:55)
[2023-08-10] MEDS: Ceftriaxone 1 GM/50 ML BAG IV (10:56)
[2023-08-10 15:14] VITALS: BP 136/59; PULSE 56; RESP 16; TEMP 36.4; O2SAT 100
[2023-08-10 21:14] VITALS: BP 127/57; PULSE 65; RESP 18; TEMP 37.2; O2SAT 97
[2023-08-11 03:30] VITALS: BP 119/51; PULSE 56; RESP 18; TEMP 36; O2SAT 98
[2023-08-11 03:56] VITALS: BMI 19.5
[2023-08-11 07:37] VITALS: O2SAT 94
--- NOTE | 2023-08-11 07:40 | DS.PCM_ITS ---
Providers Date of Admission: 08/08/23 Date of Discharge: 08/11/23 Primary Care Physician: Dr. Norah Munson MD Reason For Visit: SYNCOPE,UTI Diagnosis Discharge Diagnosis (1) Syncope: Status: Acute Code(s): R55 - Syncope and collapse (2) UTI (urinary tract infection): Status: Acute Code(s): N39.0 - Urinary tract infection, site not specified Plan Patient is a 73-year-old lady admitted progressive generalized weakness and fatigue which was followed by a presyncopal episode. Her evaluation on admission was consistent with acute cystitis admitted to monitored bed for further management 1. PreSyncopal episode ? Do suspect orthostatic hypotension. Patient has been admitted to monitored bed management IV fluid continuous telemetry monitoring serial cardiac enzymes as well as echo ordered ?08/11/2023; 2D echo demonstrated normal LV size. Left ventricular systolic function is normal.The estimated ejection fraction is 60 %. Structurally normal valves. 2. Acute complicated cystitis ? Patient started on ceftriaxone urine culture sent we will follow-up on result ? 08/10/2023 urine cultures pending. Patient had a bout of emesis this a.m. treated symptomatically ? 08/11/2023 final culture did not exhibit any growth. Antibiotics discontinued on discharge 3. History of BPPV ? Stable 4. Chronic kidney disease stage II rule out 5. Physical deconditioning - Requested for PT OT eval and high school social studies tutor to assist with discharge planning 6. DVT prophylaxis ? [place] Lovenox Time spent in the patient's overall evaluation,decision-making process, review of diagnostic data, adjustment of management, discussion with other providers, nursing nursing and ancillary staff involved in patient's care documentation, 35 Minutes Medications at Discharge Home Medications omega-3 fatty acids 1,000 mg capsule 1,000 mg PO DAILY SUPPLEMENT 07/29/18 ibuprofen 600 mg tablet 600 mg PO Q8H PRN musculoskeletal pain 04/23/23 Physical Exam Narrative GENERAL: cooperative HEENT: Atraumatic; normocephalic EYES; Anicteric, Normal Conjunctiva NECK; supple, normal thyroid, RESPIRATORY: Diminished to auscultation CARDIOVASCULAR: Regular S1 S2, GI: soft, normoactive bowel sounds, : No Renal angle tenderness; EXTREMITIES: No edema, no clubbing, MUSCULOSKELETAL: no muscle wasting NEURO: Awake; no lateralizing signs. SKIN: No Rash PSYCH; Flat affect Weight / BMI Weight Weight: 55 kg Body Mass Index (BMI) 19.5 ABG / Lab / Microbiology Data 08/10/23 07:45 08/10/23 07:45 Laboratory: Laboratory Results - last 24 hr 08/10/23 07:45: WBC 3.5 L, RBC 3.39 L, Hgb 11.1 L, Hct 32.2 L, MCV 95.0, MCH 32.7 H, MCHC 34.5, RDW Std Deviation 42.1, RDW Coeff of Petros 12.3, Plt Count 130 L, MPV 8.6, Immature Gran % (Auto) 0.000, Neut % (Auto) 75.9 H, Lymph % (Auto) 19.5, [place] % (Auto) 4.0, Eos % (Auto) 0.3, Baso % (Auto) 0.3, Absolute Neuts (auto) 2.7, Absolute Lymphs (auto) 0.68 L, Nucleated RBC % 0, Sodium 135 L, Potassium 3.6, Chloride 104, Carbon Dioxide 22.0, Anion Gap 9, BUN 14, Creatinine 0.84, Estim Creat Clear Calc 50.09, Est GFR (MDRD) Af Amer 85, Est GFR (MDRD) Non-Af 70, BUN/Creatinine Ratio 16.7, Glucose 185 H, Calcium 8.5, Phosphorus 2.8, Magnesium 1.9 Microbiology: Microbiology 08/08/23 16:50 Urine, Clean Catch Urine Culture - Final Culture exhibits no growth. 08/08/23 15:40 Mucosa - Nose SARS-CoV-2, Influenza & RSV (PCR) - Final Radiography Diagnostic Testing: Radiology Impression Echocardiogram 08/10/23 10:21 Interpretation Summary Normal LV size. Left ventricular systolic function is normal. The estimated ejection fraction is 60 %. Structurally normal valves. Ordering Physician: Keny Hunter Referring Physician: Jennifer Jackson Performed By: Suzanne Meza RCS D/C Instructions Discharge Diet: No restrictions Discharge Activity: Return to Normal Activity Call your doctor if you observe: Fever of 101 or Higher, Shortness of breath, Fainting spells and Chest pain Meaningful Use Info Meaningful Use Meaningful Use Diagnoses (Choose all that apply): None applicable Ischemic Stroke Statin Dosing Therapy Reference: STATIN DOSE THERAPY REFERENCE: * Patients > 75 years receive moderate or high dose statin therapy. * Patients 75 years or YOUNGER should receive HIGH intensity statin dose unless contraindicated. You will be required to document reason for non-treatment if statin daily dose does not meet guidelines. HIGH DOSE STATIN THERAPY DAILY Atorvastatin > than or = to 40 mg Rosuvastatin > than or = to 20 mg Amlodipine + Atorvastatin > than or = to 2.5/40 mg Ezetimibe + Simvastatin 10/80 mg Simvastatin 80mg Discharge Plan Admission Admit Date/Time: 08/08/23 19:27 Attending Provider: Keny Hunter Primary Care Provider: Norah Munson Consulting Providers: Jennifer Jackson Discharge Orders/Prescriptions Prescriptions: Continued ibuprofen 600 mg tablet 600 mg PO Q8H PRN (Reason: musculoskeletal pain) omega-3 fatty acids 1,000 MG capsule 1,000 mg PO DAILY Referrals / Follow Up: Norah Munson MD [Primary Care Provider] - Disposition Disposition (needs filled in before D/C Order can be placed): Home, Self Care Charges/Coding Visit Charges Inpatient E&M: 04567 Disch Hosp >30min
[2023-08-11 07:57] VITALS: BP 101/51; PULSE 55; RESP 16; TEMP 36.8; O2SAT 94
[2023-08-11] MEDS: Enoxaparin 40 MG/0.4 ML Syringe SC (09:32)
[2023-08-11] MEDS: 0.9% Saline Lock 10 ML Syringe IV (09:33)
[2023-08-11] MEDS: Ceftriaxone 1 GM/50 ML BAG IV (09:33)
[2023-08-11] MEDS: Ondansetron 4 MG/2 ML Vial IV (09:37)
[2023-08-11] MEDS: Senna/Docusate Sodium 1 Tablet 2 TABLET PO (10:33)
== END 2023-08-11 11:05 | disposition home or self-care (01) | DRG 690 ==
LOC: ED 19:29 → PCU 19:57
PROVIDERS: Admitting Provider Family Medicine; Emergency Provider Emergency Medicine; PCP Internal Medicine; Referring Provider Family Medicine; Visit Provider Internal Medicine
DX: N30.00 Acute cystitis without hematuria (principal); I95.1 Orthostatic hypotension; N18.2 Chronic kidney disease, stage 2 (mild); Z90.49 Acquired absence of other specified parts of digestive tract; R53.81 Other malaise
CPT/HCPCS: 36415; 70450; 71045; 80048; 80053; 81001; 83735; 84100; 84484; 85025; 87086; 87631; 93005; 93306; 94668; 97162; 99284; J7030; A4216; J2405

== ENCOUNTER → 2023-08-15 | Outpatient (CLI) | payer MEDICARE, OTHER, SELFPAY ==
[2023-08-15 16:56] LABS: Free T3 1.4 pg/mL (2.18-3.98); Iron 64 ug/dL (50-170); Iron Binding Capacity,Total 266 ug/dL (250-450); PERCENT IRON SATURATION 24.1 % (15.0-55.0); T4 Free Direct 0.69 ng/dL (0.76-1.46); Thyroid Stim Hormone (TSH) 1.03 uIU/mL (0.358-3.74)
[2023-08-15 17:09] LABS: Vitamin B12 565 pg/mL (211-911); Vitamin D,25 Hydroxy 54.4 ng/mL
[2023-08-15 18:03] LABS: D-Dimer Quantitative (DVT/PE) 0.82 FEU/ug/m (0.27-0.49)
== END | disposition home or self-care (01) ==
LOC: LAB 15:16
PROVIDERS: PCP Internal Medicine; Referring Provider Internal Medicine; Visit Provider Internal Medicine
DX: R53.1 Weakness (principal); R55 Syncope and collapse; E55.9 Vitamin D deficiency, unspecified; E53.8 Deficiency of other specified B group vitamins
CPT/HCPCS: 36415; 82306; 82607; 83540; 83550; 84439; 84443; 84481; 85379

== ENCOUNTER → 2023-10-02 | Outpatient (CLI) | payer MEDICARE, OTHER, SELFPAY ==
--- NOTE | 2023-10-02 07:29 | CT_ITS ---
STUDY: CT ABDOMEN AND PELVIS WITH CONTRAST REASON FOR EXAM: Female, 73 years old. Abdominal bloating, discomfort, change in BM RADIATION DOSAGE (If Supplied By Facility): CTDIvol = ( 16.67 ) mGy, DLP = ( 318.31 ) mGycm TECHNIQUE: Transaxial images were obtained from the dome of the diaphragm to the symphysis pubis with oral contrast. Oral and IV Gastrografin and 100mL Isovue-300 was administered. Sagittal and coronal images were reconstructed. Individualized dose optimization techniques were used for this CT. COMPARISON: Comparison is made with prior study dated August 29, 2021. FINDINGS: Minimal linear scarring at the lung bases. Coronary artery calcification. There is a 1.1 cm cyst in the lateral superior aspect of the right lobe of the liver. A subcentimeter cyst is seen in the medial aspect of the left lobe of the liver. These are stable. There are surgical clips in the gallbladder fossa consistent with a prior cholecystectomy. Normal spleen. Normal pancreas. Normal bilateral adrenal glands. Normal right kidney. Normal left kidney. Normal visualized stomach. Normal small intestine. Large amount of fecal material is seen throughout the colon. The appendix is visualized and appears normal. There is scattered atherosclerotic calcification of the abdominal aorta, without a demonstrated aneurysm. Normal inferior vena cava. Normal retroperitoneum. Distended urinary bladder. Normal abdominal wall. There are mild degenerative changes of the visualized lumbar spine. CT/Abdomen/Pelvis WITH Contrast IMPRESSION: Large amount of fecal material is seen in the colon. Status post cholecystectomy. Small hepatic cysts. Status post cholecystectomy. Electronically Signed: Norman Davis MD at 14:40 EDT ,
[2023-10-02 10:18] LABS: CREATININE FINGERSTICK < 1.0 mg/dL (0.55-1.02); EGFR FINGERSTICK > 60.0000 mL/min (>60)
== END | disposition home or self-care (01) ==
LOC: CT 07:25
PROVIDERS: PCP Internal Medicine; Referring Provider Internal Medicine; Visit Provider Internal Medicine
DX: R10.9 Unspecified abdominal pain (principal); K59.00 Constipation, unspecified
CPT/HCPCS: 74177; Q9967

== ENCOUNTER → 2024-01-15 | Outpatient (CLI) | payer MEDICARE, SELFPAY ==
--- NOTE | 2024-01-15 | EMB_PTH ---
PATIENT: RAYNA NGUYEN LOC: [facility]#:[id number] AGE/SX: 73/F ROOM: RE01/15/[address]: JOHN Lewis : 1950 BED: DIS: 01/15/2024 SPEC #: [id number] RECD: 01/15/24 16:36 STATUS: TITA REHuan #: [id number] GARY: 01/15/24 00:[address]: Chio Bowen NP DEPT: SURGICAL PATHOLOGY RECD BY: Nguyen Pascual ENTERED: 01/16/24 13:15 SP TYPE: ENDOM BX/C SILVER DR: Dr. Norah Munson MD Tissues: Endometrium, NOS Procedures: Surgery Specimen Level IV HEADER OPERATION: Endometrial biopsy PRE-OP DIAGNOSIS: Postmenopausal bleeding TISSUE SUBMITTED: Endometrial lining MICROSCOPIC DIAGNOSIS Endometrial biopsy: Scant fragments of benign endometrial epitheluml and superficial benign endometrial tissue. Fragments of benign ectocervical epithelium. See comment. 01/17/2024 COMMENT Clinical correlation and appropriate follow up are necessary. MICROSCOPIC DESCRIPTION Slides are reviewed. GROSS DESCRIPTION Received in fixative is one container labeled with the patient's name and designated Endometrial biopsy. The specimen consists of a scant amount of soft tissue. The specimen is totally submitted for cell block preparation. 01/16/2024 TC:4 CPT:29939
== END | disposition home or self-care (01) ==
LOC: LABSPEC 15:37
PROVIDERS: PCP Internal Medicine; Referring Provider Nurse Practitioner Women's Health; Visit Provider Nurse Practitioner Women's Health
DX: N95.0 Postmenopausal bleeding (principal)
CPT/HCPCS: 88305

== ENCOUNTER → 2024-01-18 | Outpatient (CLI) | payer MEDICARE, OTHER, SELFPAY ==
--- NOTE | 2024-01-18 15:12 | US_ITS ---
STUDY: ULTRASOUND OF THE FEMALE PELVIS - COMPLETE REASON FOR EXAM: Female, 73 years old. Postmenopausal bleeding LMP: Patient is postmenopausal. TECHNIQUE: Transabdominal and Transvaginal TECHNICAL QUALITY: Adequate. COMPARISON: None. FINDINGS: The uterus is anteverted and is in a midline position. The uterus measures 6.2 cm x 3.5 cm x 2.8 cm. Normal uterine cervix. The endometrium is thickened and measures 11.5 mm in thickness, and is fluid distended. There is no demonstrated endometrial mass. Heterogeneous appearance of the myometrium with punctate calcifications suggestive of fibroid change. I.U.D. - The patient does not have an I.U.D. The right ovary is non-visualized. The left ovary is non-visualized. There is no fluid in the cul-de-sac. The pre void volume of the bladder was 337 ml. US/Pelvic w/ Transvaginal IMPRESSION: Thickened endometrium. Findings suggestive of fibroid change of the myometrium. Electronically Signed: Norman Davis MD at 16:00 EDT ,
== END | disposition home or self-care (01) ==
LOC: US 15:11
PROVIDERS: PCP Internal Medicine; Referring Provider Nurse Practitioner Women's Health; Visit Provider Nurse Practitioner Women's Health
DX: N95.0 Postmenopausal bleeding (principal)
CPT/HCPCS: 76830; 76856

== ENCOUNTER 2024-03-13 04:32 | Emergency (ER) | payer MEDICARE, OTHER, SELFPAY ==
[2024-03-13 04:32] VITALS: BP 147/70; PULSE 83; RESP 16; TEMP 37.2; O2SAT 97; BMI 20.6
--- NOTE | 2024-03-13 04:49 | EDS_ITS ---
HPI HPI - GI History of Present Illness Chief Complaint: Abd Pain Informant: patient Abdominal Pain/Flank Pain Onset: Yesterday Context: Gradual Onset Timing: Continuous Quality: Burning and Stabbing Location: RLQ and LLQ Worsened by: Nothing Relieved by: Nothing Nausea/Vomiting/Emesis GI Symptom: Negative for Nausea or Vomiting Diarrhea/Melena/Hematochezia GI Symptom: Negative for Diarrhea, Melena or Hematochezia Associated Symptoms Associated Symptoms: Positive for Frequency; Negative for Dysuria or Hematuria Narrative Narrative: Patient presents with lower abdominal pain that began yesterday. Patient states it has gradually gotten worse. Patient states it is constant. Patient describe s it as burning and stabbing. Patient states her pain is mainly over her lower abdomen. Patient states nothing makes it better and nothing makes it worse. Patient denies any nausea or vomiting. Patient does admit to a mild decrease appetite. Patient denies any diarrhea, melena, or hematochezia. Patient admits to some urinary frequency but denies any dysuria or hematuria. Patient denies any fevers or chills. PFSH PFSH Medical History Chronic neutropenia CKD (chronic kidney disease), stage II Chronic idiopathic thrombocytopenia BPV (benign positional vertigo) Home Medications ?Medication ?Instructions ?Recorded ?Last Taken ?Type omega-3 fatty acids 1,000 mg 1,000 mg PO DAILY SUPPLEMENT 07/29/18 08/08/23 History capsule ibuprofen 600 mg tablet 600 mg PO Q8H PRN musculoskeletal 04/23/23 Unknown History pain calcium carbonate 600 mg PO DAILY 08/15/23 Unknown History Allergy/AdvReac Type Severity Reaction Status Date / Time No Known Allergies Allergy Verified 03/13/24 04:36 Family History (Updated 01/15/24 @ 15:07 by Su Oropeza) Mother Cancer Ovarian Heart disease Heart failure Hypertension Father Pulmonary fibrosis Surgical History Hx of cholecystectomy Social History household members: spouse current occupational status: unemployed Smoking Status: Never smoker alcohol intake: never substance use type: does not use seatbelt use: always do you feel safe at home: Yes additional social history: - Trey ROS ROS ED Constitutional Constitutional ED: Denies chills or fever(s) Eyes Eyes: Denies blurry vision or change in vision ENT ENT ED: Denies rhinorrhea or sore throat Cardiovascular Cardiovascular: Denies chest pain or palpitations Respiratory/Chest Respiratory/Chest: Denies cough or dyspnea Gastrointestinal Gastrointestinal: Reports abdominal pain; Denies nausea or vomiting Genitourinary Genitourinary ED: Reports urinary frequency; Denies dysuria or hematuria Musculoskeletal Musculoskeletal: Denies back pain or neck pain Integumentary Denies abscess or rash Neurologic Neurologic: Reports headache(s); Denies weakness Allergic/Immunologic Allergic/Immunologic ED: Denies mouth swelling or urticaria EXAM Physical Exam Const Vital Signs: 03/13/24 04:32 03/13/24 06:32 Temperature 99 F Temperature Source Oral Pulse Rate 83 87 Respiratory Rate 16 18 Blood Pressure 147/70 H Blood Pressure Mean 95 Pulse Ox 97 97 Oxygen Delivery Method Room Air Room Air Positive well nourished and well developed General Appearance ED: well developed and NAD HEENT Reports moist mucous membranes Neck supple and no JVD Resp normal respiratory effort and clear to auscultation bilaterally Cardio regular rate and regular rhythm GI Palpation: soft and tender LLQ, RLQ and suprapubic; Negative for guarding or rebound tenderness present Extremity General Extremety ED: Negative for edema or tenderness General Extremity: Negative for edema Neuro CN's II-XII intact bilaterally, moves all extremities and no sensory deficits noted Sensorium / Orientation: alert, oriented to person, oriented to place and oriented to time Motor Exam: strength 5/5 throughout Psych mental status grossly normal and thought process normal MDM MDM MDM Narrative Medical decision making narrative: Differential diagnosis includes appendicitis, urinary tract infection, gastroenteritis, colitis, ureteral calculus, electrolyte abnormality, bowel obstruction, and perforation. CBC will be obtained to assess for leukocytosis and anemia. Basic metabolic profile will be obtained to assess for electrolyte abnormality and renal function. Urinalysis will be obtained to assess for urinary tract infection and hematuria. CT scan of the abdomen pelvis will be obtained to assess for appendicitis, bowel obstruction, and perforation. Lab Data Attestation: I reviewed the patient's lab results. Lab results narrative: CBC was reviewed. White blood cell count was slightly low at 3.4. Platelets were slightly low at 128. The remainder is within normal limits. Basic metabolic profile was reviewed and was within normal limits. Urinalysis was reviewed. There is no evidence of urinary tract infection or hematuria. Labs: Laboratory Results - last 24 hr 03/13/24 03/13/24 04:38 04:45 WBC 3.4 L RBC 3.81 L Hgb 12.5 Hct 36.8 L MCV 96.6 MCH 32.8 H MCHC 34.0 RDW Std Deviation 44.2 H RDW Coeff of Petros 12.6 Plt Count 128 L MPV 8.5 Immature Gran % (Auto) 0.300 Neut % (Auto) 69.7 Lymph % (Auto) 20.8 [place] % (Auto) 8.3 Eos % (Auto) 0.6 Baso % (Auto) 0.3 Absolute Neuts (auto) 2.4 Absolute Lymphs (auto) 0.70 L Nucleated RBC % 0 Sodium 138 Potassium 3.7 Chloride 103 Carbon Dioxide 28.0 Anion Gap 7 BUN 16 Creatinine 0.75 Estim Creat Clear Calc 53.08 Est GFR (MDRD) Af Amer 98 Est GFR (MDRD) Non-Af 81 BUN/Creatinine Ratio 21.4 H Glucose 102 Calcium 9.1 Urine Color Yellow Urine Clarity Clear Urine pH 7.0 Ur Specific [place] 1.010 Urine Protein Negative Urine Glucose (UA) Normal Urine Ketones Negative Urine Occult Blood Negative Urine Nitrite Negative Urine Bilirubin Negative Urine Urobilinogen Normal Ur Leukocyte Esterase Negative Urine RBC 0 SEEN Urine WBC 0 SEEN Ur Squamous Epith Cells 0-5 SEEN Amorphous Sediment 3+ Urine Bacteria 1+ Urine Mucus 0 SEEN Radiography Diagnostic Testing: Clinical Impression(s) from Imaging Studies Abdomen/Pelvis CT 03/13/24 05:19 IMPRESSION: 1. Dilated intrahepatic and extrahepatic biliary ducts after cholecystectomy. 2. Otherwise, no CT evidence of acute intra-abdominal disease. 3. Large amount of stool suggests possible fecal stasis. Electronically Signed: Debra Oropeza MD at 8:00 EST Reading Location ID and State: [facility] / [place] , Service support , CT scan of the abdomen pelvis was obtained. There is no evidence of appendicitis. There is a large amount of stool. There is no free air or free fluid. There is no evidence of bowel obstruction or perforation. There are dilated intrahepatic and extrahepatic biliary ducts. This was interpreted by e radiologist and was also independently reviewed by myself. Treatment and Re-Evaluation :: Patient was given IV fluids, morphine, and Zofran. Patient was advised of her findings. Patient was given a dose of Bentyl. Patient was given a soapsuds enema. Patient was advised her pain is most likely from constipation. Patient was instructed to use [id number] laxatives as needed. Patient was instructed to follow-up with her primary care physician in 5 to 7 days. Patient was instructed to eat a high-fiber diet. Patient was instructed return if worse in any way. Patient understood and was agreeable with the plan. All questions were answered. Discharge Plan Triage Chief Complaint: Abd Pain ED Provider: Jl Valle Dx/Rx/DC Orders Clinical Impression: Abdominal pain, Constipation Instructions: ED Constipation (Adult) Prescriptions: No Action ibuprofen 600 mg tablet 600 mg PO Q8H PRN (Reason: musculoskeletal pain) calcium carbonate 600 mg calcium (1,500 mg) tablet 600 mg PO DAILY omega-3 fatty acids 1,000 MG capsule 1,000 mg PO DAILY Primary Care Provider: Norah Munson Referrals: Norah Munson MD [Primary Care Provider] - 5-7 Days Print Language: Bulgarian Disposition Disposition: Home, Self Care
--- NOTE | 2024-03-13 05:19 | CT_ITS ---
STUDY: CT ABDOMEN AND PELVIS WITH CONTRAST REASON FOR EXAM: Female, 73 years old patient with abdominal pain. RADIATION DOSAGE (If Supplied By Facility): CTDIvol = ( 13.15 ) mGy, DLP = ( 302.45 ) mGycm TECHNIQUE: Transaxial images were obtained from the dome of the diaphragm to the symphysis pubis with oral contrast. 100 mL of IV Isovue-300 was administered. Sagittal and coronal images were reconstructed. Individualized dose optimization techniques were used for this CT. COMPARISON: None. FINDINGS: There is mild bilateral basilar atelectasis. The visualized portions of the heart are enlarged. There are dilated intrahepatic biliary ducts. There is a small hepatic cyst in the right lobe of the liver measuring 1.4 cm in size. Liver appears to be enlarged measuring approximately 24.4 cm. There are surgical clips in the gallbladder fossa consistent with a prior cholecystectomy. There are dilated extrahepatic ducts measuring 8 mm in greatest transverse dimension. There is mild splenomegaly. Normal pancreas. Normal bilateral adrenal glands. Normal right kidney. Normal left kidney. Normal visualized stomach. There is no obvious dilated bowel, ascites or pneumoperitoneum. Enteric contrast is visible within the stomach and small bowel. The small bowel has a grossly normal appearance. There is still and/or gas visible within the colon. The appendix is visualized and appears normal. Normal abdominal aorta. There is venous distention of the inferior vena cava (IVC). Normal retroperitoneum. Normal urinary bladder. Normal visualized uterus. Normal abdominal wall. Normal osseous structures. CT/Abdomen/Pelvis WITH Contrast IMPRESSION: 1. Dilated intrahepatic and extrahepatic biliary ducts after cholecystectomy. 2. Otherwise, no CT evidence of acute intra-abdominal disease. 3. Large amount of stool suggests possible fecal stasis. Electronically Signed: Debra Oropeza MD at 8:00 EST ,
[2024-03-13 05:29] LABS: Mucous, Urine 0 SEEN /hpf (<or=2+); Red Blood Cells-Urine 0 SEEN /hpf (0-5); White Blood Cells 0 SEEN /hpf (0-5)
[2024-03-13] MEDS: Ondansetron 4 MG/2 ML Vial IV (05:29)
[2024-03-13] MEDS: 0.9% Normal Saline (1000mL) 1,000 ML 999 ML IV (05:29)
[2024-03-13] MEDS: Morphine 4 MG/ML Syringe IV (05:29)
[2024-03-13 05:33] LABS: Absolute Neutrophil Count 2.4 X10^3/uL (2.0-7.7); Basophil% 0.3 % (0-1); Eosinophils% 0.6 % (0-5); Hematocrit 36.8 % (37-47); Hemoglobin 12.5 g/dL (12.0-15.0); Lymphocyte % 20.8 % (19-41); Mean Corpuscular Hgb 32.8 pg (27.0-32.0); Mean Corpuscular Volume 96.6 fL (81-99); Mean Platelet Vol. 8.5 fl (6.2-12.0); Monocyte% 8.3 % (0-10); Neutrophil # 2.35 X10^3/uL (2.7-7.7); Neutrophil % 69.7 % (47-70); Platelet Count 128 K/mm3 (150-450); RBC Distribution Width CV 12.6 % (11.6-14.6); RBC Distribution Width SD 44.2 fl (35.1-43.9); Red Blood Count 3.81 M/mm3 (4.2-5.4); White Blood Count 3.4 K/mm3 (4.4-11.0)
[2024-03-13 05:34] LABS: Basophil# 0.01 X10^3/uL; Eosinophil# 0.02 X10^3/uL; Monocyte# 0.28 X10^3/uL; NRBC Flagged by Analyzer 0 % (0-5)
[2024-03-13 05:35] LABS: Color, Urine Yellow (Yellow); Glucose, Dipstick Normal (Normal); Ketone-Dipstick Negative (Negative); Leukocyte Esterase-Dipstick Negative /ul (Negative); Nitrite-Dipstick Negative (Negative); Occult Blood-Urine Negative /ul (Negative); Protein-Dipstick Negative (Negative); Urine Bilirubin Dipstick Negative (Negative); Urine Clarity Clear (Clear); Urine Urobilinogen Normal (Normal)
[2024-03-13 05:48] LABS: Anion Gap 7 (5-15); BUN 16 mg/dL (7-18); BUN/Creat Ratio 21.4 RATIO (10-20); Calcium,Total 9.1 mg/dL (8.5-10.1); Chloride 103 mmol/L (98-107); Creatinine, Serum 0.75 mg/dL (0.55-1.02); EST Glomerular Filtration Rate 81 mL/min (>60); Est Glom Filt Rate - Afr Amer 98 mL/min (>60); Estimated Creatinine Clearance 53.08 ml/min; Glucose 102 mg/dL (74-106); Potassium 3.7 mmol/L (3.5-5.1); Sodium Level 138 mmol/L (136-145)
[2024-03-13 06:32] VITALS: PULSE 87; RESP 18; O2SAT 97
[2024-03-13 06:36] LABS: Bacteria 1+ /hpf (None Seen); Squamous Epithelial Cells - UA 0-5 SEEN /hpf (5-10)
[2024-03-13 06:37] LABS: Amorphous Sediment 3+
--- NOTE | 2024-03-13 07:00 | ED.RN ---
This RN assumes care from Marely at this time.
[2024-03-13 08:00] VITALS: BP 136/67; PULSE 82; RESP 16; O2SAT 99
[2024-03-13 08:56] VITALS: BP 136/67; PULSE 82; RESP 16; TEMP 36.7; O2SAT 99
[2024-03-13] MEDS: Dicyclomine 20 MG/2 ML Vial IM (09:09)
== END 2024-03-13 09:57 | disposition home or self-care (01) ==
PROVIDERS: Emergency Provider Emergency Medicine; PCP Internal Medicine; Visit Provider Emergency Medicine
DX: K59.00 Constipation, unspecified (principal); D69.3 Immune thrombocytopenic purpura; R10.30 Lower abdominal pain, unspecified; R35.0 Frequency of micturition; Z90.49 Acquired absence of other specified parts of digestive tract
CPT/HCPCS: 74177; 80048; 81001; 85025; 96372; 96374; 96375; 99284; Q9967; A4216; J2405

== ENCOUNTER 2024-06-06 18:05 | Emergency (ER) | payer MEDICARE, OTHER, SELFPAY ==
[2024-06-06 18:06] VITALS: BP 162/76; PULSE 67; RESP 16; TEMP 36.5; O2SAT 99; BMI 20.9
--- NOTE | 2024-06-06 18:27 | EX.ED.VIS.EY ---
HPI History of Present Illness Chief Complaint: Eye Problem Informant: patient Onset/Context/Timing Location: Bilateral Eyes Onset: Weeks Context: Gradual Onset Timing: Intermittent Worsened by: Nothing Relieved by: [id number] eyedrops Associated Symptoms Associated Symptoms - Eyes: Itching and Pain; Negative for Burning, Crusting, Drainage, Eyelid swelling, Foreign body sensation, Matting, Photophobia or Redness Visual Changes: left: Blurred vision History of injury: No Visual correction: Glasses PFSH PFSH Medical History Chronic neutropenia CKD (chronic kidney disease), stage II Chronic idiopathic thrombocytopenia BPV (benign positional vertigo) Home Medications ?Medication ?Instructions ?Recorded ?Last Taken ?Type omega-3 fatty acids 1,000 mg 1,000 mg PO DAILY SUPPLEMENT 07/29/18 08/08/23 History capsule ibuprofen 600 mg tablet 600 mg PO Q8H PRN musculoskeletal 04/23/23 Unknown History pain calcium carbonate 600 mg PO DAILY 08/15/23 Unknown History Allergy/AdvReac Type Severity Reaction Status Date / Time No Known Allergies Allergy Verified 03/13/24 04:36 Family History (Updated 01/15/24 @ 15:07 by Su Oropeza) Mother Cancer Ovarian Heart disease Heart failure Hypertension Father Pulmonary fibrosis Surgical History Hx of cholecystectomy Social History household members: spouse current occupational status: unemployed Smoking Status: Never smoker alcohol intake: never substance use type: does not use seatbelt use: always do you feel safe at home: Yes additional social history: - Trey CHI ROS ED Constitutional Constitutional ED: Denies chills or fever(s) Eyes Eyes: Reports blurry vision; Denies change in vision ENT ENT ED: Denies rhinorrhea or sore throat Cardiovascular Cardiovascular: Denies chest pain or palpitations Respiratory/Chest Respiratory/Chest: Denies cough or dyspnea Gastrointestinal Gastrointestinal: Denies nausea or vomiting Genitourinary Genitourinary ED: Denies dysuria or hematuria Musculoskeletal Musculoskeletal: Denies back pain or neck pain Integumentary Denies abscess or rash Neurologic Neurologic: Reports headache(s); Denies weakness Allergic/Immunologic Allergic/Immunologic ED: Denies mouth swelling or urticaria EXAM Physical Exam Const Vital Signs: 06/06/24 18:06 Temperature 97.7 F L Temperature Source Temporal Pulse Rate 67 Respiratory Rate 16 Blood Pressure 162/76 H Blood Pressure Mean 104 Pulse Ox 99 Oxygen Delivery Method Room Air Positive well nourished and well developed General Appearance ED: well developed and NAD HEENT atraumatic Eyes Eyes Narrative: Pupils are equal, round, and reactive to light bilaterally. Extraocular muscles are intact. Conjunctiva is clear. Anterior chambers are clear. There is no hyphema. There is no cell or flare. Tetracaine and fluorescein dye was applied. There are no corneal abrasions. There is no dye uptake noted. Intraocular pressure was 13 on the left and 6 on the right. Neck supple and no JVD Resp normal respiratory effort and clear to auscultation bilaterally Cardio regular rate and regular rhythm GI non-tender and non-distended Palpation: soft Neuro oriented x3, CN's II-XII intact bilaterally, moves all extremities and no sensory deficits noted Sensorium / Orientation: alert Motor Exam: strength 5/5 throughout MDM MDM MDM Narrative Medical decision making narrative: Differential diagnosis includes glaucoma, corneal abrasion, and nonspecific visual change. Intraocular pressures will be measured for glaucoma. Slit-lamp and fluorescein dye will be used to assess for corneal abrasion. Treatment and Re-Evaluation Narrative: There are no corneal abrasions. There is no evidence of traumatic iritis. Intraocular pressures were 13 on the left and 6 on the right. Visual acuity was 20/25 in the right eye, 20/25 in the left eye, and 20/25 in both eyes. Patient was advised of her findings. Patient was instructed to follow-up with her metal organ pipe maker or product safety technician as scheduled. Patient was instructed to return if worse in any way. Patient understood and was agreeable with plan. All questions were answered. Discharge Plan Triage Chief Complaint: Eye Problem ED Provider: Jl Valle Dx/Rx/DC Orders Clinical Impression: Vision changes, Elevated blood pressure reading Instructions: How the Eye Works Prescriptions: No Action ibuprofen 600 mg tablet 600 mg PO Q8H PRN (Reason: musculoskeletal pain) calcium carbonate 600 mg calcium (1,500 mg) tablet 600 mg PO DAILY omega-3 fatty acids 1,000 MG capsule 1,000 mg PO DAILY Primary Care Provider: Norah Munson Referrals: Norah Munson MD [Primary Care Provider] - 1-2 Weeks Print Language: Mongolian Disposition Disposition: Home, Self Care
[2024-06-06] MEDS: Tetracaine 0.5% Ophthalmic Bottle 1 DRP OPHTHALMIC (18:59)
[2024-06-06] MEDS: Fluorescein 1 MG STRIP 1 STRIP OPHTHALMIC (19:00)
[2024-06-06 20:06] VITALS: BP 165/81; PULSE 58; RESP 16; TEMP 36.7; O2SAT 99
== END 2024-06-06 20:08 | disposition home or self-care (01) ==
PROVIDERS: Emergency Provider Emergency Medicine; PCP Internal Medicine; Visit Provider Emergency Medicine
DX: H53.9 Unspecified visual disturbance (principal); N18.2 Chronic kidney disease, stage 2 (mild); R03.0 Elevated blood-pressure reading, without diagnosis of hypertension; H57.10 Ocular pain, unspecified eye; R51.9 Headache, unspecified
CPT/HCPCS: 99283

== ENCOUNTER 2024-10-27 22:09 | Emergency (ER) | payer MEDICARE, OTHER, SELFPAY ==
[2024-10-27] VITALS (8 sets, daily range): BP systolic 138–160; BP diastolic 69–88; PULSE 56–73; RESP 12–23; TEMP 36.7; O2SAT 98–100; BMI 20.7
--- NOTE | 2024-10-27 22:11 | EKG12_ITS ---
Test Reason : CP Blood Pressure : */* mmHG Vent. Rate : 66 BPM Atrial Rate : 66 BPM P-R Int : 150 ms QRS Dur : 90 ms QT Int : 396 ms P-R-T Axes : 45 -2 18 degrees QTcB Int : 415 ms Normal sinus rhythm Cannot rule out Septal infarct (cited on or before 08-Aug-2023) Abnormal ECG Confirmed by Wai Ellison ([id number]), video news editor AUDREY CASTRO ([id number]) on 10/29/2024 1:45:00 PM Referred By: Confirmed By: Wai Ellison
[2024-10-27 22:47] LABS: Hematocrit 34.0 % (37-47); Hemoglobin 11.7 g/dL (12.0-15.0); Immature Granulocytes Count 0.000 X10^3/uL (0.0-0.0); Mean Corp Hgb Conc 34.4 g/dL (32-36); Mean Corpuscular Volume 98.0 fL (81-99); Mean Platelet Vol. 8.6 fl (6.2-12.0); NRBC Flagged by Analyzer 0 % (0-5); Platelet Count 110 K/mm3 (150-450); RBC Distribution Width CV 12.8 % (11.6-14.6); RBC Distribution Width SD 45.7 fl (35.1-43.9); Red Blood Count 3.47 M/mm3 (4.2-5.4); White Blood Count 2.4 K/mm3 (4.4-11.0)
--- NOTE | 2024-10-27 22:47 | RAD_ITS ---
PROCEDURE: CHEST 1 VIEW (PORTABLE) 10/27/2024 REASON FOR EXAM: CHEST PAIN TECHNIQUE: Frontal view of the chest. COMPARISON: 08/08/2023 FINDINGS: Normal heart size. Well inflated lungs. No consolidation, effusion, or pneumothorax. RAD/Chest 1 View (Portable) IMPRESSION: No acute chest findings Reading Location: [place] [id number]
--- NOTE | 2024-10-27 23:00 | EDS_ITS ---
HPI History of Present Illness Chief Complaint: Chest Pain Narrative Narrative: Patient is a 74-year-old female with past medical history of chronic kidney disease, chronic idiopathic thrombocytopenia, BPV, glaucoma who presented to the emergency department chief complaint chest pain. Patient states that earlier this evening she states that she was feeling very tired and developed some chest discomfort on the right side of her chest. She states that she went to lay down and noted that the pain radiated to her back. Patient states that she told her about her symptoms and wanted her to get evaluated here in the emergency department. Patient is unsure if she has ever had a stress test or a heart catheterization in the past. [facility] Medical History Glaucoma Chronic neutropenia CKD (chronic kidney disease), stage II Chronic idiopathic thrombocytopenia BPV (benign positional vertigo) Home Medications Medication Instructions Recorded Last Taken Type omega-3 fatty acids 1,000 mg 1,000 mg PO DAILY SUPPLEM ENT 07/29/18 08/08/23 History capsule calcium carbonate 600 mg PO DAILY 08/15/23 Unk nown History Allergy/AdvReac Type Severity Reaction Status Date / Time No Known Allergies Allergy Verified 10/27/24 22:09 Family History Mother Cancer Ovarian Heart disease Heart failure Hypertension Father Pulmonary fibrosis Surgical History Hx of cholecystectomy Social History household members: spouse current occupational status: unemployed Smoking Status: Never smoker alcohol intake: never substance use type: does not use seatbelt use: always do you feel safe at home: Yes additional social history: - Trey CHI ROS ED ROS Narrative Constitutional: Denies any fevers, chills, headaches, lightness, dizziness Eyes: Denies change in vision double vision blurry vision Cardiovascular: Complains of chest pain as noted above denies palpitations Respiratory: Denies coughing wheezing shortness of breath Abdomen: Denies abdominal pain nausea vomit diarrhea : Denies any urinary symptoms Neurological: Denies numbness, wheeze, tingling Musculoskeletal: Complains of chest pain rating to her back Skin: Denies any rashes or lesions EXAM Physical Exam Narrative Exam Narrative: General: Patient lying in bed rest comfortably did not appear to be in acute distress Head: Atraumatic, normocephalic Eyes: PERRL bilaterally, EOMI bilateral, no conjunctival injection noted Neck: Soft, supple, trachea midline Cardiovascular: Regular rate and rhythm no murmurs gallops rubs noted Respiratory: Clear to auscultation bilaterally no rales rhonchi or wheezes noted Abdomen: Soft, nondistended, no tenderness to palpation Extremities: Radial pulses +2/4 in the bilateral upper extremities, no pedal edema on exam Neurological: Patient following commands and that she was at [facility] there is 2024 Skin: Warm, dry, intact no rashes or lesions noted Const Vital Signs: 10/27/24 22:09 10/27/24 22:39 10/27/24 22:40 Temperature 98.1 F Temperature Source Oral Pulse Rate 73 64 Respiratory Rate 16 18 Blood Pressure 160/88 H Blood Pressure Mean 112 Pulse Ox 99 99 Oxygen Delivery Method Room Air Room Air 10/27/24 22:45 10/27/24 23:00 10/27/24 23:15 Temperature Temperature Source Pulse Rate 61 60 62 Respiratory Rate 12 23 H 15 Blood Pressure Blood Pressure Mean Pulse Ox 99 98 99 Oxygen Delivery Method 10/27/24 23:30 10/27/24 23:39 10/27/24 23:45 Temperature Temperature Source Pulse Rate 64 59 L 56 L Respiratory Rate 19 H 18 14 Blood Pressure 138/74 H 140/69 H Blood Pressure Mean 92 90 Pulse Ox 100 99 98 Oxygen Delivery Method 10/28/24 00:00 10/28/24 00:15 10/28/24 00:30 Temperature Temperature Source Pulse Rate 58 L 59 L 56 L Respiratory Rate 9 L 15 17 Blood Pressure 143/77 H 151/74 H 146/73 H Blood Pressure Mean 96 94 94 Pulse Ox 100 99 98 Oxygen Delivery Method 10/28/24 00:45 10/28/24 01:00 10/28/24 01:15 Temperature Temperature Source Pulse Rate 60 59 L 59 L Respiratory Rate 14 16 15 Blood Pressure 145/73 H 149/76 H 155/75 H Blood Pressure Mean 93 97 98 Pulse Ox 99 99 100 Oxygen Delivery Method 10/28/24 01:30 10/28/24 01:45 10/28/24 02:00 Temperature Temperature Source Pulse Rate 61 63 Respiratory Rate 9 L 13 Blood Pressure 152/77 H 148/77 H 152/72 H Blood Pressure Mean 98 98 95 Pulse Ox 99 99 Oxygen Delivery Method MDM MDM MDM Narrative Medical decision making narrative: Patient is a 74-year-old female who presented to the emergency department with a chief complaint of chest pain rating to her back. On the differential diagnosis includes but not limited to ACS, aortic dissection, pneumothorax, pneumonia, GERD. Once workup is obtained and reviewed she will be reevaluated. Patient's CBC reviewed and showed a white blood count 2.4 this is around her baseline according previous blood draws, hemoglobin today 1.7, plate count was noted to be low indicating thrombocytopenia at 110 she has a history of this, D- dimer normal at 0.29. Patient sodium normal 140, potassium normal 3.6, creatinine normal at 0.80. Patient's troponin was 31 with a delta troponin of 30. Patient's EKG showed sinus rhythm with a rate of 66 bpm with AK interval 150 this was compared to EKG from 08/08/2023 and remains largely unchanged. Patient's chest x-ray reviewed by myself and by radiology showed no acute cardiopulmonary processes. Discussed case with on-call director of brand marketing Dr. Ellison who reviewed the EKGs and the case and states that she can go home and follow-up with her PCP for a stress echo. I discussed this plan with the patient and family bedside they are agreeable this plan all question concerns answered she was discharged home in stable condition. Lab Data Labs: Laboratory Results - last 24 hr 10/27/24 10/28/24 22:37 00:42 WBC 2.4 L RBC 3.47 L Hgb 11.7 L Hct 34.0 L MCV 98.0 MCH 33.7 H MCHC 34.4 RDW Std Deviation 45.7 H RDW Coeff of Petros 12.8 Plt Count 110 L MPV 8.6 Immature Gran % (Auto) 0.000 Neut % (Auto) 50.7 Lymph % (Auto) 38.3 [place] % (Auto) 8.5 Eos % (Auto) 2.1 Baso % (Auto) 0.4 Absolute Neuts (auto) 1.2 L Absolute Lymphs (auto) 0.90 Nucleated RBC % 0 D-Dimer Quant (PE/DVT) 0.29 Sodium 140 Potassium 3.6 Chloride 104 Carbon Dioxide 26.6 Anion Gap 9 BUN 19 Creatinine 0.80 Estim Creat Clear Calc 52.47 Est GFR (MDRD) Non-Af 77 BUN/Creatinine Ratio 23.5 H Glucose 109 H Calcium 9.2 Troponin T High Sens 31 H Troponin T Hi Sens 2 Hr 30 H Radiography Diagnostic Testing: Clinical Impression(s) from Imaging Studies Chest X-Ray 10/27/24 22:47 IMPRESSION: No acute chest findings Reading Location: [place] [id number] Discharge Plan Triage Chief Complaint: Chest Pain ED Provider: Joao Gimenez Dx/Rx/DC Orders Clinical Impression: CKD (chronic kidney disease), stage II, Hypothyroidism, Thrombocytopenia, Chest pain Prescriptions: No Action calcium carbonate 600 mg calcium (1,500 mg) tablet 600 mg PO DAILY omega-3 fatty acids 1,000 MG capsule 1,000 mg PO DAILY Primary Care Provider: Norah Munson Referrals: Norah Munson MD [Primary Care Provider] - Activity Restrictions/Additional Instructions: Follow-up with your doctor for a stress test with echocardiogram. Return with worsening symptoms or any other concerns. Print Language: Arabic Disposition Disposition: Home, Self Care
--- OUTSIDE RECORDS SUMMARY | 2024-10-27 23:06 | XMS RPT_ITS | CCD ---
Author Organization [facility] CliniSyct Care Team Providers Care Check Embosser Name Role Phone Dr. Manuel Joy Primary Care Provider Dr. Manuel Joy Attending Provider Dr. Manuel Joy Referring Provider [phone] Dr. Manuel Joy Primary Care Provider Dr. Manuel Joy Attending Provider Dr. Roula Dominguez Emergency Provider [phone] Dr. Jennifer Jackson Admit Provider Dr. Jennifer Jackson Referring Provider [phone] Jennifer Jackson Other Provider Dr. Keny Hunter Attending Provider Unavailable Dr. Keny Hunter Other Provider Unavailable Dr. Montrell Morgan Attending Provider MANUEL JOY Admitting Unavailable MANUEL JOY Primary Care Unavailable MANUEL JOY Attending Unavailable MANUEL JOY MD Consulting Unavailable PROVIDER, UNKNOWN Consulting Unavailable PROVIDER, UNKNOWN Consulting Unavailable PROVIDER, UNKNOWN Consulting Unavailable MANUEL JOY Admitting Unavailable MNAUEL JOY Primary Care Unavailable MANUEL JOY Attending Unavailable MANUEL JOY MD Consulting Unavailable PROVIDER, UNKNOWN Consulting Unavailable PROVIDER, UNKNOWN Consulting Unavailable PROVIDER, UNKNOWN Consulting Unavailable Unavailable Primary Care Provider Unavailabl e Jennifer Jackson Referring Unavailable Manuel Joy Primary Care Unavailable Jennifer Jackson Consulting Unavailable Keny Hunter Attending Unavailable Jennifer Jackson Admitting Unavailable Keny Hunter Consulting Unavailable Manuel Joy Primary Care Unavailable Montrell Morgan Attending Unavailable Manuel Joy Primary Care Unavailable Jeimy, Manuel Attending Unavailable Jeimy, Manuel Primary Care Unavailable Jeimy, Manuel Attending Unavailable Jeimy, Manuel Referring Unavailable Andrés THREAD LASTER, Chio Attending Unavailable Jeimy, Manuel Primary Care Unavailable Jeimy, Manuel Attending Unavailable Jeimy, Manuel Primary Care Unavailable Jeimy, Manuel Primary Care Unavailable Jeimy, Manuel Attending Unavailable [place] THREAD LASTER, Chio Attending Unavailable Jeimy, Manuel Primary Care Unavailable [place] THREAD LASTER, Chio Referring Unavailable Jeimy, Manuel Attending Unavailable Jeimy, Manuel Primary Care Unavailable Jeimy, Manuel Referring Unavailable Jeimy, Manuel Attending Unavailable Jeimy, Manuel Primary Care Unavailable Jeimy, Manuel Referring Unavailable Jennifer Jackson Consulting Unavailable Jeimy, Manuel Primary Care Unavailable Jennifer Jackson L Admitting Unavailable Keny Hunter Attending Unavailable WhiteJennifer L Referring Unavailable Jeimy, Manuel Attending Unavailable Jeimy, Manuel Primary Care Unavailable Jeimy, Manuel Referring Unavailable Jeimy, Manuel Primary Care Unavailable SchwJl alexander Attending Unavailable Jeimy, Manuel Primary Care Unavailable SchwJl alexander Attending Unavailable Andrés THREAD LASTER, Chio Attending Unavailable Jeimy, Manuel Primary Care Unavailable [place] THREAD LASTER, Chio Referring Unavailable Jennifer Jackson Attending Unavailable Medications Current Medications Medication Drug Class(es) Dates Sig (Normalized) Sig (Original) amoxicillin 500 mg oral capsule (2 sources) Penicillin-class Antibacterial Start: 06-08-2014 take 1 capsule by mouth twice daily amoxicillin (POLYMOX, AMOXIL) 500 mg capsule Indications: Helicobacter pylori (H. pylori) Take 1 capsule by mouth twice daily. 28 capsule 0 06/08/2014 Active Calcium Carbonate / vitamin D3 (2 sources) CALCIUM CARBONATE/VITAMIN D3 (VITAMIN D-3 ORAL) Take by mouth once daily. Active clarithromycin 500 mg oral tablet (2 sources) Macrolide Antimicrobial Start: 06-05-2014 take 1 tablet by mouth every twelve hours, then take 1 tablet by mouth twice daily clarithromycin (BIAXIN) 500 mg tab Indications: Helicobacter pylori (H. pylori) Take 1 tablet by mouth every 12 hours. Take one (1) tablet twice a day. Take all of the prescription. 28 tablet 0 06/05/2014 Active ibuprofen 600 mg oral tablet (6 sources) Nonsteroidal Anti-inflammatory Drug Start: 07-30-2018 End: 04-23-2023 take 600 mg by mouth every eight hours Ibuprofen Active 600 MG PO Q8H April 23, 2023 3:48pm Loraine-3 Fatty Acids (4 sources) Start: 07-29-2018 take 1000 mg by mouth once daily Loraine-3 Fatty Acids Active 1000 MG PO DAILY July 29, 2018 5:21am Start: 07-29-2018 take 1000 mg by mouth once liz ly Loraine-3 Fatty Acids Active 1000 MG PO DAILY July 29, 2018 12:00am omega-3 fatty acids(FISH OIL 500 MG CAP) (2 sources) Start: 06-28-2007 omega-3 fatty acids(FISH OIL 500 MG CAP) Take one(1) capsule daily. 0 06/28/2007 Active omeprazole 40 mg delayed release oral capsule (2 sources) Proton Pump Inhibitor Start: 06-05-2014 take 1 capsule by mouth once daily Omeprazole (PRILOSEC) 40 mg capsule Indications: Helicobacter pylori (H. pylori) Take 1 capsule by mouth once daily. 28 capsule 0 06/05/2014 Active OTC NUTRITIONAL SUPPLEMENT (2 sources) Start: 05-22-2008 OTC NUTRITIONA L SUPPLEMENT vitamin d daily 0 05/22/2008 Active VITAMIN E ORAL (2 sources) take 1 capsule by mouth once daily VITAMIN E ORAL Take 1 capsule by mouth once daily. Active Completed/Discontinued Medications Medication Drug Class(es) Dates Sig (Normalized) Sig (Original) Calcium (4 sources) Phosphate Binder, Calcium Start: 04-23-2023 End: 08-08-2023 calcium Discontinued PO April 23, 2023 1:00am August 08, 2023 4:01pm Start: 06-28-2007 CALCIUM 500 MG TAB Take one(1) tablet twice daily. 0 06/28/2007 Active cephalexin 250 mg oral capsule (2 sources) Cephalosporin Antibacterial Start: 04-23-2023 End: 04-28-2023 take 250 mg by mouth every eight hours Cephalexin Discontinued 250 MG PO Q8H 21 08April 23, 2023 1:00am April 28, 2023 1:28am cyclobenzaprine hydrochloride 10 mg oral tablet (4 sources) Muscle Relaxant Start: 07-30-2018 End: 02-21-2021 take 10 mg by mouth every six hours as needed Cyclobenzaprine Discontinued 10 MG PO EVERY 6 HOURS NEEDED July 30, 2018 4:53pm February 21, 2021 10:16am erythromycin 0.005 mg/mg ophthalmic ointment (2 sources) Macrolide, Macrolide Antimicrobial Start: 04-23-2023 End: 08-08-2023 Erythromycin Discontinued 0.5 INCH OPHTHALMIC THREE TIMES A DAY 3.5 7 April 23, 2023 1:00am August 08, 2023 4:00pm vit d3 (2 sources) Start: 04-23-2023 End: 08-08-2023 vit d3 Discontinued April 23, 2023 1:00am August 08, 2023 4:01pm Problems Active Problems Problem Classification Problem Date Documented Da te Episodic/Chronic Abdominal pain (8 sources) Abdominal pain; Translations: [Unspecified abdominal pain] Onset: 10-10-2023 Episodic Coagulation and hemorrhagic disorders (6 sources) Platelet count below reference range; Translations: [Thrombocytopenia, unspecified] 07-29-2018 Chronic Conditions associated with dizziness or vertigo (4 sources) Benign paroxysmal positional vertigo; Translations: [Benign paroxysmal vertigo, unspecified ear] 08-08-2023 Episodic Genitourinary symptoms and ill-defined conditions (1 source) Increased frequency of urination; Translations: [Frequency of micturition] 01-08-2024 Episodic Menopausal disorders (9 sources) Atrophic vaginitis; Translations: [Postmenopausal atrophic vaginitis] Onset: 06-28-2007 Resolved: 11-21-2010 10-18-2023 Chronic Nonspecific chest pain (4 sources) Chest pain at rest; Translations: [Chest pain, unspecified] 07-29-2018 Episodic Nutritional deficiencies (1 source) Vitamin D deficiency, unspecified; Translations: [Vitamin D deficiency, unspecified] Onset: 08-15-2023 Chronic Other bone disease and musculoskeletal deformities (4 sources) Segmental dysfunction; Translations: [Segmental and somatic dysfunction of rib cage] 07-30-2018 Episodic Other eye disorders (2 sources) Chalazion of right upper eyelid; Translations: [Chalazion right upper eyelid] 04-23-2023 Episodic Other eye disorders (2 sources) Chalazion right upper eyelid; Translations: [Chalazion] 04-23-2023 Episodic Other eye disorders (1 source) Unspecified disorder of eye and adnexa; Translations: [Unspecified disorder of eye and adnexa] Onset: 06-20-2024 Episodic Other gastrointestinal disorders (4 sources) Constipation; Translations: [Constipation, unspecified] 02-21-2021 Episodic Other gastrointestinal disorders (4 sources) Constipation, unspecified; Translations: [Constipation, unspecified] Episodic Other liver diseases (2 sources) Liver mass; Translations: [Hepatomegaly, not elsewhere classified] 09-06-2021 Episodic Other skin disorders (4 sources) Lesion of scalp; Translations: [Disorder of the skin and subcutaneous tissue, unspecified] 02-21-2021 Episodic Prolapse of female genital organs (2 sources) Midline cystocele; Translations: [Cystocele, midline] Onset: 11-21-2010 11-21-2010 Chronic Past or Other Problems Problem Classification Problem Date Documented Date Episodic/Chronic Cancer of cervix (4 sources) Low grade squamous intraepithelial lesion on cervical Papanicolaou smear; Translations: [Low grade squamous intraepithelial lesion on cytologic smear of cervix (LGSIL)] Onset: 06-28-2007 Resolved: 12-23-2012 10-18-2023 Episodic Genitourinary symptoms and ill-defined conditions (2 sources) Female stress incontinence; Translations: [Stress incontinence (female) (male)] Onset: 06-28-2007 Resolved: 11-21-2010 11-21-2010 Chronic Malaise and fatigue (5 sources) Asthenia; Translations: [Weakness] Onset: 08-24-2023 08-08-2023 Episodic Other female genital disorders (2 sources) Dyspareunia; Translations: [Dyspareunia] Onset: 06-28-2007 Resolved: 11-21-2010 11-21-2010 Chronic Other female genital disorders (2 sources) Stenosis of cervix; Translations: [Stricture and stenosis of cervix uteri] Onset: 06-28-2007 10-18-2023 Episodic Other female genital disorders (2 sources) Female genital organ symptoms; Translations: [Unspecified condition associated with female genital organs and menstrual cycle] Onset: 11-23-2011 11-23-2011 Episodic Residual codes; unclassified (2 sources) Abnormal cytology findings; Translations: [ASCUS favor benign] Onset: 12-23-2012 12-23-2012 Episodic Syncope (6 sources) Syncope; Translations: [Syncope and collapse] Onset: 08-15-2023 08-08-2023 Episodic Urinary tract infections (6 sources) Urinary tract infectious disease; Translations: [Urinary tract infection, site not specified] Onset: 08-11-2023 08-08-2023 Episodic Results Test Name Value Interpretation Reference Range Facility /Víctor 07-03-2024 /[facility] [address] [place] [address] OFFICE VISIT Date of Service: 07/03/24 MR#: [id number] Acct: [id number] Name: AIMEE PALM Rep #: [id number] : 1950 Provider: Dr. Manuel duran MD Age/Sex: 74/F Location: [facility] Status: Signed Intake Vital Signs 06/06/24 18:06 07/03/24 10:29 Height 5 ft 4 in 5 ft 4 in Weight: 123 lb 6 oz BMI 21.2 BP 153/79 H Blood Pressure Location Lt brachial Position Sitting Respiration 16 Pulse 59 L Pulse Source Monitor Temp 98.4 F Temp Source Temporal Pulse Oximetry (%) 96 Oxygen Delivery Method room air Intake Visit Reasons: Annual/Physical Chief Complaint: Annual/Physical Seal Mixer Required: No Accompanied by: Self Is patient in pain?: No Allergies No Known Allergies Allergy (Verified 07/03/24 10:25) Medications ???Medication ???Instructions ???Recorded ???Confirmed ???Type omega-3 fatty acids 1,000 mg 1,000 mg PO DAILY SUPPLEMENT 07/2907/03/24 History capsule calcium carbonate 600 mg PO DAILY 08/15/23 07/03/24 History Have you fallen in the past year?: No PFSH Medical History (Updated 07/03/24 @ 10:28 by Eh Tariq RN) Glaucoma Chronic neutropenia CKD (chronic kidney disease), stage II Chronic idiopathic thrombocytopenia BPV (benign positional vertigo) Surgical History Hx of cholecystectomy Family History Mother Cancer Ovarian Heart disease Heart failure Hypertension Father Pulmonary fibrosis Social History household members: spouse current occupational status: unemployed Smoking Status: Never smoker alcohol intake: never substance use type: does not use seatbelt use: always do you feel safe at home: Yes additional social history: - Trey HPI HPI Chief Complaint: Annual/Physical Details: AIMEE PALM, is a 74 F who presents to the office today for 6-month follow-up. 74-year-old female who generally speaking has been doing pretty well. She has mildly elevated blood pressure readings in the past, without diagnosed hypertension. She does have blood pressure cuff at home but not monitoring. Has bit higher blood pressure here in the office today than it had been even on repeat. See below. She has no symptoms to speak of of concern. No chest pain, focal areas of numbness or tingling, frequent headaches, change in vision, double vision, blurry vision. 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 Generally speaking it is pretty good diet. Has noted sometimes some difficulty with bowel movements, not regularly but he does use an occasional [id number] assist. She has a tea that has helped. She does need bran cereal typically for breakfast. Does not eat a lot of fruit, and we discussed that. Eats some vegetables. Avoids highly processed grains like bread for the most part. Review of systems per chart. No chest pain, chest tightness, shortness of breath wheeze cough or congestion. No fever or chills. No nausea or vomiting. Appetite has been good. Bowel movements other than sometimes being headed towards constipation, have been okay. There is been no change in stool caliber. No dark black or bloody stool at any point. No significant abdominal discomfort. No significant weight loss. Physical exam. Vital signs on chart. Wears corrective lenses. EOMI. PERRLA. Sclera are clear. TMs are unremarkable with normal light reflexes. Canals are unremarkable. Posterior pharynx is unremarkable. Good dentition. No cervical or supraclavicular lymph nodes enlarged or tender. No clear thyromegaly. No thyroid nodules readily palpable. Lungs are without wheeze, rhonchi, rales. No E/A changes are heard. Heart is regular. Not tachycardic. No clear murmur, rub, or gallop is identified. The abdomen is soft. Bowel sounds are present. Nontender nondistended abdomen. Cranial nerve examination 2 through 12 are grossly unremarkable nonlateralizing. No obvious rashes. No obvious significant skin lesions are seen. She has normal pulses in the feet. Skin is warm and dry. No ankle or leg edema. ROS Const Constitutional: No body ache, chills, excessive sweating, fatigue, fever(s), frequent falls, headache(s), snoring, weakness or change in appetite Eyes Eyes: No blurry vision, change in vision, eye pain or Light sensitivity ENT ENT: No abnormal hearing, ear or mastoid pain, tinnitus, nasal congestion, headache(s), neck pain or sore throat Resp Respiratory: No cough, shortness of breath, snoring or wheezing Cardio Cardiology: No chest pain at rest, chest pain with exertion, excessive sweating, dyspnea on exertion, lightheadedness, o (more content not included)... Normal [facility] Emergency Department Summary on 06-06-2024 Emergency Department Summary [facility] Medical Records Department [address] [place] [address] Emergency Department Summary 06/06/24 MR#: [id number] Acct: [id number] Name: AIMEE PALM Rep #: [id number] : 1950 73 From: Jl Valle DO PCP: Dr. Manuel Joy MD Status:DEP ER Location: ED HPI History of Present Illness Chief Complaint: Eye Problem Informant: patient Onset/Context/Timing Location: Bilateral Eyes Onset: Weeks Context: Gradual Onset Timing: Intermittent Worsened by: Nothing Relieved by: [id number] eyedrops Associated Symptoms Associated Symptoms - Eyes: Itching and Pain; Negative for Burning, Crusting, Drainage, Eyelid swelling, Foreign body sensation, Matting, Photophobia or Redness Visual Changes: left: Blurred vision History of injury: No Visual correction: Glasses [facility] Medical History Chronic neutropenia CKD (chronic kidney disease), stage II Chronic idiopathic thrombocytopenia BPV (benign positional vertigo) Home Medications ???Medication ???Instructions ???Recorded ???Last Taken ???Type omega-3 fatty acids 1,000 mg 1,000 mg PO DAILY SUPPLEMENT 07/2908/08/23 History capsule ibuprofen 600 mg tablet 600 mg PO Q8H PRN musculoskeletal 04/23/23 Unknown History pain calcium carbonate 600 mg PO DAILY 08/15/23 Unknown H istory Allergy/AdvReac Type Severity Reaction Status Date / Time No Known Allergies Allergy Verified 03/13/24 04:36 Family History (Updated 01/15/24 @ 15:07 by Su Oropeza) Mother Cancer Ovarian Heart disease Heart failure Hypertension Father Pulmonary fibrosis Surgical History Hx of cholecystectomy Social History household members: spouse current occupational status: unemployed Smoking Status: Never smoker alcohol intake: never substance use type: does not use seatbelt use: always do you feel safe at home: Yes additional social history: - Trey ROS ROS ED Constitutional Constitutional ED: Denies chills or fever(s) Eyes Eyes: Reports blurry vision; Denies change in vision ENT ENT ED: Denies rhinorrhea or sore throat Cardiovascular Cardiovascular: Denies chest pain or palpitations Respiratory/Chest Respiratory/Chest: Denies cough or dyspnea Gastrointestinal Gastrointestinal: Denies nausea or vomiting Genitourinary Genitourinary ED: Denies dysuria or hematuria Musculoskeletal Musculoskeletal: Denies back pain or neck pain Integumentary Denies abscess or rash Neurologic Neurologic: Reports headache(s); Denies weakness Allergic/Immunologic Allergic/Immunologic ED: Denies mouth swelling or urticaria EXAM Physical Exam Const Vital Signs: 06/06/24 18:06 Temperature 97.7 F L Temperature Source Temporal Pulse Rate 67 Respiratory Rate 16 Blood Pressure 162/76 H Blood Pressure Mean 104 Pulse Ox 99 Oxygen Delivery Method Room Air Positive well nourished and well developed General Appearance ED: well developed and NAD HEENT atraumatic Eyes Eyes Narrative: Pupils are equal, round, and reactive to light bilaterally. Extraocular muscles are intact. Conjunctiva is clear. Anterior chambers are clear. There is no hyphema. There is no cell or flare. Tetracaine and fluorescein dye was applied. There are no corneal abrasions. There is no dye uptake noted. Intraocular pressure was 13 on the left and 6 on the right. Neck supple and no JVD Resp normal respiratory effort and clear to auscultation bilaterally Cardio regular rate and regular rhythm GI non-tender and non-distended Palpation: soft Neuro oriented x3, CN's II-XII intact bilaterally, moves all extremities and no sensory deficits noted Sensorium / Orientation: alert Motor Exam: strength 5/5 throughout MDM MDM MDM Narrative Medical decision making narrative: Differential diagnosis includes glaucoma, corneal abrasion, and nonspecific visual change. Intraocular pressures will be measured for glaucoma. Slit-lamp and fluorescein dye will be used to assess for corneal abrasion. Treatment and Re-Evaluation Narrative: There are no corneal abrasions. There is no evidence of traumatic iritis. Intraocular pressures were 13 on the left and 6 on the right. Visual acuity was 20/25 in the right eye, 20/25 in the left eye, and 20/25 in both eyes. Patient was advised of her findings. Patient was instructed to follow-up with her content curator or chief of safety and protection as scheduled. Patient was instructed to return if worse in any way. Patient understood and was agreeable with plan. All questions were answered. Discharge Plan Triage Chief Complaint: Eye Problem ED Provider: Prema (more content not included)... Normal [facility] Abdomen/Pelvis WITH Contrast on 03-13-2024 Abdomen/Pelvis WITH Contrast [facility] Imaging Services [address] [place] [id number] Abdomen/Pelvis WITH Contrast MR#: [id number] Acct: [id number] Name: AIMEE PALM Rep #: [id number] : 1950 F 73 From: Debra Oropeza MD PCP: Dr. Manuel Joy MD Status: REG ER Study: Abdomen/Pelvis WITH Contrast Date of Exam: 08/30 Exam# [id number] Ordering Dr: Jl Valle DO [id number] STUDY: CT ABDOMEN AND PELVIS WITH CONTRAST REASON FOR EXAM: Female, 73 years old patient with abdominal pain. RADIATION DOSAGE (If Supplied By Facility): CTDIvol = ( 13.15 ) mGy, DLP = ( 302.45 ) mGycm TECHNIQUE: Transaxial images were obtained from the dome of the diaphragm to the symphysis pubis with oral contrast. 100 mL of IV Isovue-300 was administered. Sagittal and coronal images were reconstructed. Individualized dose optimization techniques were used for this CT. COMPARISON: None. FINDINGS: There is mild bilateral basilar atelectasis. The visualized portions of the heart are enlarged. There are dilated intrahepatic biliary ducts. There is a small hepatic cyst in the right lobe of the liver measuring 1.4 cm in size. Liver appears to be enlarged measuring approximately 24.4 cm. There are surgical clips in the gallbladder fossa consistent with a prior cholecystectomy. There are dilated extrahepatic ducts measuring 8 mm in greatest transverse dimension. There is mild splenomegaly. Normal pancreas. Normal bilateral adrenal glands. Normal right kidney. Normal left kidney. Normal visualized stomach. There is no obvious dilated bowel, ascites or pneumoperitoneum. Enteric contrast is visible within the stomach and small bowel. The small bowel has a grossly normal appearance. There is still and/or gas visible within the colon. The appendix is visualized and appears normal. Normal abdominal aorta. There is venous distention of the inferior vena cava (IVC). Normal retroperitoneum. Normal urinary bladder. Normal visualized uterus. Normal abdominal wall. Normal osseous structures. CT/Abdomen/Pelvis WITH Contrast IMPRESSION: 1. Dilated intrahepatic and extrahepatic biliary ducts after cholecystectomy. 2. Otherwise, no CT evidence of acute intra-abdominal disease. 3. Large amount of stool suggests possible fecal stasis. Electronically Signed: Debra Oropeza MD at 8:00 EST , CC: Dr. Jl Valle, ; Dr. 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, [address] CA,Total 9.1 mg/dL Normal 8.5-10.1 [facility] Comment on above: Performed By: #### L 100.0100, L500.2500 #### [facility] [address] [place], [address] Chloride [Moles/Vol] 103 mmol/L Normal 98-107 [facility] Comment on above: Performed By: #### L 100.0100, L500.2500 #### [facility] [address] [place], [address] CO2 [Moles/Vol] 28.0 mmol/L Normal 21.0-32.0 [facility] Comment on above: Performed By: #### L 100.0100, L500.2500 #### [facility] [address] [place], [address] Creatinine [Mass/Vol] 0.75 mg/dL Normal 0.55-1.02 [facility] Comment on above: Result Comment: The validity of the calculated GFR GFRAA in patients over 70 years has not been determined. Clinical correlation is essential. Performed By: #### L 100.0100, L500.2500 #### [facility] [address] [place], [address] ECRCL 53.08 ml/min Normal [facility] Comment on above: Performed By: #### L 100.0100, L500.2500 #### [facility] [address] [place], [address] EST GFR - AA 98 mL/min Normal >60 [facility] Comment on above: Result Comment: Afri can Japanese GFR Calc Performed By: #### L 100.0100, L500.2500 #### [facility] [address] [place], [address] GAP 7 Normal 5-15 [facility] Comment on above: Performed By: #### L 100.0100, L500.2500 #### [facility] [address] [place], [address] GFR/1.73 sq M.predicted among non-blacks MDRD (S/P/Bld) [Vol rate/Area] 81 mL/min/{1.73_m2} Normal >60 [facility] Comment on above: Result Comment: Non- GFR Calc Performed By: #### L 100.0100, L500.2500 #### [facility] [address] [place], [address] Glucose [Mass/Vol] 102 mg/dL Normal 74-106 [facility] Comment on above: Result Comment: Fast ing Glucose result from 100 to 125 mg/dL suggests IMPAIRED HOMEOSTASIS per A.D.A. criteria. Performed By: #### L 100.0100, L500.2500 #### [facility] [address] [place], [address] Potassium [Moles/Vol] 3.7 mmol/L Normal 3.5-5.1 [facility] Comment on above: Performed By: #### L 100.0100, L500.2500 #### [facility] [address] [place], [address] Sodium [Moles/Vol] 138 mmol/L Normal 136-145 [facility] Comment on above: Performed By: #### L 100.0100, L500.2500 #### [facility] [address] [place], [address] Urea nitrogen [Mass/Vol] 16 mg/dL Normal 7-18 [facility] Comment on above: Performed By: #### L 100.0100, L500.2500 #### [facility] [address] [place], [address] CBC W/Diff, Automatedon 12-0 Absolute Lymph 0.70 X10 3/uL Low 0.83-4.51 [facility] Comment on above: Performed By: #### L 100.0100, L500.2500 #### [facility] [address] [place], [address] Nucleated RBC (Bld) [#/Vol] 0 10*3/uL Normal 0-5 [facility] Comment on above: Performed By: #### L 100.0100, L500.2500 #### [facility] [address] [place], [address] Absolute Neut 2.4 X10 3/uL Normal 2.0-7.7 [facility] Comment on above: Performed By: #### L 100.0100, L500.2500 #### [facility] [address] [place], [address] Basophils/100 WBC (Bld) 0.3 % Normal 0-1 [facility] Comment on above: Performed By: #### L 100.0100, L500.2500 #### [facility] [address] [place], [address] Eosinophils/100 WBC (Bld) 0.6 % Normal 0-5 [facility] Comment on above: Performed By: #### L 100.0100, L500.2500 #### [facility] [address] [place], [address] Erythrocyte distribution width (RBC) [Ratio] 12.6 % Normal 11.6-14.6 [facility] Comment on above: Performed By: #### L 100.0100, L500.2500 #### [facility] [address] [place], [address] Hematocrit (Bld) [Volume fraction] 36.8 % Low 37-47 [facility] Comment on above: Performed By: #### L 100.0100, L500.2500 #### [facility] [address] [place], [address] Hemoglobin (Bld) [Mass/Vol] 12.5 g/dL Normal 12.0-15.0 [facility] Comment on above: Performed By: #### L 100.0100, L500.2500 #### [facility] [address] [place], [address] IG% 0.300 Normal 0.0-0.9 [facility] Comment on above: Result Comment: IG% - Immature Granulocytes (promyelocytes, myelocytes and metamyelocytes) > 1% indicates that a LEFT SHIFT is Present. Performed By: #### L 100.0100, L500.2500 #### [facility] [address] [place], [address] Lymphocytes/100 WBC (Bld) 20.8 % Normal 19-41 [facility] Comment on above: Performed By: #### L 100.0100, L500.2500 #### [facility] [address] [place], [address] MCH (RBC) [Entitic mass] 32.8 pg High 27.0-32.0 [facility] Comment on above: Performed By: #### L 100.0100, L500.2500 #### [facility] [address] [place], [address] MCHC (RBC) [Mass/Vol] 34.0 g/dL Normal 32-36 [facility] Comment on above: Performed By: #### L 100.0100, L500.2500 #### [facility] [address] [place], [address] MCV (RBC) [Entitic vol] 96.6 fL Normal 81-99 [facility] Comment on above: Performed By: #### L 100.0100, L500.2500 #### [facility] [address] [place], [address] Monocytes/100 WBC (Bld) 8.3 % Normal 0-10 [facility] Comment on above: Performed By: #### L 100.0100, L500.2500 #### [facility] [address] [place], [address] Neutrophils/100 WBC (Bld) 69.7 % Normal 47-70 [facility] Comment on above: Performed By: #### L 100.0100, L500.2500 #### [facility] [address] [place], [address] Platelet mean volume (Bld) [Entitic vol] 8.5 fL Normal 6.2-12.0 [facility] Comment on above: Performed By: #### L 100.0100, L500.2500 #### [facility] [address] [place], [address] Platelets (Bld) [#/Vol] 128 10*3/uL Low 150-450 [facility] Comment on above: Performed By: #### L 100.0100, L500.2500 #### [facility] [address] [place], [address] RBC (Bld) [#/Vol] 3.81 10*6/uL Low 4.2-5.4 [facility] Comment on above: Performed By: #### L 100.0100, L500.2500 #### [facility] [address] [place], [address] RDW SD 44.2 fl High 35.1-43.9 [facility] Comment on above: Performed By: #### L 100.0100, L500.2500 #### [facility] [address] [place], [address] WBC (Bld) [#/Vol] 3.4 10*3/uL Low 4.4-11.0 [facility] Comment on above: Performed By: #### L 100.0100, L500.2500 #### [facility] [address] [place], [address] Emergency Department Summary on 03-13-2024 Emergency Department Summary [facility] Medical Records Department [address] [place] [address] Emergency Department Summary 03/13/24 MR#: [id number] Acct: [id number] Name: AIMEE PALM Rep #: [id number] : 1950 73 From: Jl Valle DO PCP: Dr. Manuel Joy MD Status:REG ER Location: ED HPI HPI - GI History of Present Illness Chief Complaint: Abd Pain Informant: patient Abdominal Pain/Flank Pain Onset: Yesterday Context: Gradual Onset Timing: Continuous Quality: Burning and Stabbing Location: RLQ and LLQ Worsened by: Nothing Relieved by: Nothing Nausea/Vomiting/Emesis GI Symptom: Negative for Nausea or Vomiting Diarrhea/Melena/Hematoch ezia GI Symptom: Negative for Diarrhea, Melena or Hematochezia Associated Symptoms Associated Symptoms: Positive for Frequency; Negative for Dysuria or Hematuria Narrative Narrative: Patient presents with lower abdominal pain that began yesterday. Patient states it has gradually gotten worse. Patient states it is constant. Patient describes it as burning and stabbing. Patient states her pain is mainly over her lower abdomen. Patient states nothing makes it better and nothing makes it worse. Patient denies any nausea or vomiting. Patient does admit to a mild decrease appetite. Patient denies any diarrhea, melena, or hematochezia. Patient admits to some urinary frequency but denies any dysuria or hematuria. Patient denies any fevers or chills. [facility] Medical History Chronic neutropenia CKD (chronic kidney disease), stage II Chronic idiopathic thrombocytopenia BPV (benign positional vertigo) Home Medications ???Medication ???Instructions ???Recorded ???Last Taken ???Type omega-3 fatty acids 1,000 mg 1,000 mg PO DAILY SUPPLEMENT 07/29/18 08/08/23 History capsule ibuprofen 600 mg tablet 600 mg PO Q8H PRN musculoskeletal 04/23/23 Unknown History pain calcium carbonate 600 mg PO DAILY 08/15/23 Unknown History Allergy/AdvReac Type Severity Reaction Status Date / Time No Known Allergies Allergy Verified 03/13/24 04:36 Family History (Updated 01/15/24 @ 15:07 by Su Oropeza) Mother Cancer Ovarian Heart disease Heart failure Hypertension Father Pulmonary fibrosis Surgical History Hx of cholecystectomy Social History household members: spouse current occupational status: unemployed Smoking Status: Never smoker alcohol intake: never substance use type: does not use seatbelt use: always do you feel safe at home: Yes additional social history: - Trey ROS ROS ED Constitutional Constitutional ED: Denies chills or fever(s) Eyes Eyes: Denies blurry vision or change in vision ENT ENT ED: Denies rhinorrhea or sore throat Cardiovascular Cardiovascular: Denies chest pain or palpitations Respiratory/Chest Respiratory/Chest: Denies cough or dyspnea Gastrointestinal Gastrointestinal: Reports abdominal pain; Denies nausea or vomiting Genitourinary Genitourinary ED: Reports urinary frequency; Denies dysuria or hematuria Musculoskeletal Musculoskeletal: Denies back pain or neck pain Integumentary Denies abscess or rash Neurologic Neurologic: Reports headache(s); Denies weakness Allergic/Immunologic Allergic/Immunologic ED: Denies mouth swelling or urticaria EXAM Physical Exam Const Vital Signs: 03/13/24 04:32 03/13/24 06:32 Temperature 99 F Temperature Source Oral Pulse Rate 83 87 Respiratory Rate 16 18 Blood Pressure 147/70 H Blood Pressure Mean 95 Pulse Ox 97 97 Oxygen Delivery Method Room Air Room Air Positive well nourished and well developed General Appearance ED: well developed and NAD HEENT Reports moist mucous membranes Neck supple and no JVD Resp normal respiratory effort and clear to auscultation bilaterally Cardio regular rate and regular rhythm GI Palpation: soft and tender LLQ, RLQ and suprapubic; Negative for guarding or rebound tenderness present Extremity General Extremety ED: Negative for edema or tenderness General Extremity: Negative for edema Neuro CN's II-XII intact bilaterally, moves all extremities and no sensory deficits noted Sensorium / Orientation: alert, oriented to person, oriented to place and oriented to time Motor Exam: strength 5/5 throughout Psych mental status grossly normal and thought process normal MDM MDM MDM Narrative Medical decision making narrative: Differential diagnosis includes appendicitis, urinary tract infection, gastroenteritis, colitis, ureteral calculus, electrolyte abnormality, bowel obstruction, and perforation. CBC will be obtained to assess for leukocytosis and anemia. Basic (more content not included)... Normal [facility] Urinalysis, Completeon 03-13 AMORPHOUS 3+ Normal [facility] Comment on above: Order Comment: CLEAN CATCH Performed By: #### L 503.0105, L501.51595, L503.6030, L501.9520, L506.0400, L300.8000, L506.1000 #### [facility] [address] [place], [address] BACTERIA 1+ /hpf Normal None Seen [facility] Comment on above: Order Comment: CLEAN CATCH Performed By: #### L 503.0105, L501.17086, L503.6030, L501.9520, L506.0400, L300.8000, L506.1000 #### [facility] [address] [place], [address] EPI,SQUAMOUS 0-5 SEEN Normal 5-10 [facility] Comment on above: Order Comment: CLEAN CATCH Performed By: #### L 503.0105, L501.92785, L503.6030, L501.9520, L506.0400, L300.8000, L506.1000 #### [facility] [address] [place], [address] Mucus Ql (Urine sed) 0 SEEN Normal [facility] Comment on above: Order Comment: CLEAN CATCH Performed By: #### L 503.0105, L501.04458, L503.6030, L501.9520, L506.0400, L300.8000, L506.1000 #### [facility] [address] [place], [address] RBC 0 SEEN Normal 0-5 [facility] Comment on above: Order Comment: CLEAN CATCH Performed By: #### L 503.0105, L501.05583, L503.6030, L501.9520, L506.0400, L300.8000, L506.1000 #### [facility] [address] [place], [address] WBC 0 SEEN Normal 0-5 [facility] Comment on above: Order Comment: CLEAN CATCH Performed By: #### L 503.0105, L501.49812, L503.6030, L501.9520, L506.0400, L300.8000, L506.1000 #### [facility] [address] [place], [address] Pelvic w/ Transvaginalon Pelvic w/ Transvaginal [facility] Services [address] [place], [place] [address] Pelvic w/ Transvaginal MR#: [id number] Acct: [id number] Name: AIMEE PALM Domi Rep #: [id number] : 1950 F 73 From: Norman kline MD PCP: Dr. Manuel Joy MD Status: [facility] Study: Pelvic w/ Transvaginal Date of Exam: 01/18/24 Exam# [id number] Ordering Dr: Chio Bowen THREAD LASTER THREAD LASTER -C [id number] STUDY: ULTRASOUND OF THE FEMALE PELVIS - COMPLETE REASON FOR EXAM: Female, 73 years old. Postmenopausal bleeding LMP: Patient is postmenopausal. TECHNIQUE: Transabdominal and Transvaginal TECHNICAL QUALITY: Adequate. COMPARISON: None. FINDINGS: The uterus is anteverted and is in a midline position. The uterus measures 6.2 cm x 3.5 cm x 2.8 cm. Normal uterine cervix. The endometrium is thickened and measures 11.5 mm in thickness, and is fluid distended. There is no demonstrated endometrial mass. Heterogeneous appearance of the myometrium with punctate calcifications suggestive of fibroid change. I.U.D. - The patient does not have an I.U.D. The right ovary is non-visualized. The left ovary is non-visualized. There is no fluid in the cul-de-sac. The pre void volume of the bladder was 337 ml. US/Pelvic w/ Transvaginal IMPRESSION: Thickened endometrium. Findings suggestive of fibroid change of the myometrium. Electronically Signed: Norman Davis MD at 16:00 EDT Reading Location ID and State: [facility] / [place] , Service support , CC: OJHN Bowen; Dr. Manuel Joy MD Shipyard Painter: Signed Normal [facility] Battery Builder Office Visit Reporton 01-15-2024 Battery Builder Office Visit Report [facility] [address], [address] [place] [address] OFFICE VISIT Date of Service: 01/15/24 MR#: [id number] Acct: [id number] Name: AIMEE PALM Rep #: [id number] : 1950 Provider: JOHN rudolph Age/Sex: 73/F Location: [facility] [place] Status: Signed Intake Vital Signs 09/20/23 09:01 01/15/24 15:00 Height 5 ft 6 in 5 ft 6 in Weight: 113 lb 123 lb 8 oz BMI 18.2 19.9 BP 132/68 H 134/82 H Blood Pressure Location Lt brachial Position Sitting Respiration 16 Pulse 63 Pulse Source Monitor Temp 98.2 F Pulse Oximetry (%) 96 Oxygen Delivery Method room air Intake Visit Reasons: ABN BLEEDING PER SM Chief Complaint: PMB Seal Mixer Required: No Accompanied by: Daughter Is patient in pain?: No Allergies No Known Allergies Allergy (Verified 01/15/24 15:01) Medications ???Medication ???Instructions ???Recorded ???Confirmed ???Type omega-3 fatty acids 1,000 mg 1,000 mg PO DAILY SUPPLEMENT 07/29/18 01/15/24 History capsule ibuprofen 600 mg tablet 600 mg PO Q8H PRN musculoskeletal 04/23/23 01/15/24 History pain calcium carbonate 600 mg PO DAILY 08/15/23 01/15/24 History Is last menstrual period known: No Post menopausal: Yes Patient : No : No PFSH PFSH Medical History Chronic neutropenia CKD (chronic kidney disease), stage II Chronic idiopathic thrombocytopenia BPV (benign positional vertigo) Surgical History Hx of cholecystectomy Family History (Updated 01/15/24 @ 15:07 by Su Oropeza) Mother Cancer Ovarian Heart disease Heart failure Hypertension Father Pulmonary fibrosis Social History (Updated 01/15/24 @ 15:08 by Su Oropeza) household members: spouse current occupational status: unemployed Smoking Status: Never smoker alcohol intake: never substance use type: does not use seatbelt use: always do you feel safe at home: Yes additional social history: - Trey History 6 Elective abortions Hx Para Spontaneous abortions Hx # Term Pregnancies Ectopic pregnancies Hx # Pregnancies Multiple births # of living children 5 HPI ABN BLEEDING PER SM Details: AIMEE PALM is a 73 year old who presents for patient that has had 2 episodes of spot of blood on underwear X 2 events. States last one was 2 weeks ago. She denies pain. She is not sexually active. Has had 6 vaginal deliveries. ROS Const Constitutional: Reports system reviewed and no additional complaints, except as documented Eyes Eyes: Reports system reviewed and no additional complaints, except as documented GI GI: Denies abdominal pain or change in bowel habits : Reports as per HPI Exam Const General: cooperative and no acute distress Nutritional Appearance: well nourished Orientation: oriented x3 Resp Effort Inspection: normal respiratory effort GI Palpation: soft and nontender External Female Exam: other (atrophic changes) Urethra: other (slightly dilated) Speculum Exam - Vagina: vagina atrophic (significant. friable at posterior introitus with use of speculum) Speculum Exam - Cervix: closed (pale, smalle) Bimanual Exam- Vagina Uterus: normal bimanual exam, uterine size normal and non-tender Bimanual Exam- Adnexa, other: normal adnexae, no masses, non-tender and cystocele Pelvic Support: cystocele Office Procedures Endometrial Biopsy Endometrial Biopsy Test: Yes Not Applicable Consent Signed: Yes Time out checklist: patient, procedure, site marked/identified, positioning of patient, supplies available, allergies confirmed and team agrees on procedure Time out time: 13:20 tenaculum used: Yes dilator used: No Details: Cervix prepped with betadine and syringe pipelle inserted 6cm into uterus without complication. Scant specimen obtained and sent to lab for analysis. All instruments removed from vagina without complications. Excellent hemostasis noted. Coding Level of Care Code Attention Iron Launder Operator Diagnoses Postmenopausal bleeding N95.0 Atrophic vaginitis N95.2 CPT Codes Endometrial Biopsy (64333) Assessment and Plan Assessment and Plan (1) Postmenopausal bleeding: Status: Acute (2) Atrophic vaginitis: Status: Acute Orders: Orders Endometrial Biopsy Today N95.0 - Postmenopausal bleeding Pelvic w/ Transvaginal Today N95.0 - Postmenopausal bleeding Plan Reviewed S S infection Call pathology Ultrasound Probable bleeding from atrophy 01/15/24 1537 Date Chio Nichols Signature: Date (more content not included)... Normal [facility] Surgery Specimen Level Karen 01-15-2024 Surgery Specimen Level IV Patient Age/Sex Location Account Attending Physician [facility]M 73[id number] JOHN Lewis Specimen: [id number] Received: 01/15/24 Status: TITA Ramos Num: [id number] Spec Type: HECTOR COLE/C Lalita Dr: JOHN Lewis HEADER OPERATION: Endometrial biopsy PRE-OP DIAGNOSIS: Postmenopausal bleeding TISSUE SUBMITTED: Endometrial lining MICROSCOPIC DIAGNOSIS Endometrial biopsy: Scant fragments of benign endometrial epitheluml and superficial benign endometrial tissue. Fragments of benign ectocervical epithelium. See comment. 01/17/2024 COMMENT Clinical correlation and appropriate follow up are necessary. MICROSCOPIC DESCRIPTION Slides are reviewed. GROSS DESCRIPTION Received in fixative is one container labeled with the patient's name and designated Endometrial biopsy. The specimen consists of a scant amount of soft tissue. The specimen is totally submitted for cell block preparation. 01/16/2024 TC:4 CPT:55102 Patient Age/Sex Location Account Attending Physician AIMEE PALM 73/F [facility] [id number] JOHN Lewis Signed (signature on file) Dr. Omar Clark MD 01/17/24 1140 Normal [facility] Comment on above: Performed By: #### L 9100.0200 #### [facility] [place], [place], [address] Marianne 01-09-2024 CELESTINE Telephone ([facility]) -------- AIMEE PALM ([id number]) 1950 F Date Time Provider Department 01/09/24 TRAE MCINTYRE [facility] During your visit today, we recorded the following information about you: Aydee Orozco LPN 01/09/2024 4:38 PM Signed Gail, daughter calling for results of urine re: possible UTI. Please advise. EMERSON Melchor Jessica, APRN.LEAD ELECTRICIAN 01/09/2024 4:53 PM Signed Urine culture has returned and is negative for bacterial growth. Please follow up with PCP for continued symptoms. Please advise. Ileana Naqvi LPN 01/09/2024 6:58 PM Signed Daughter of patient notified.Ileana Naqvi LPN Allergies As of Date: 01/09/2024 Noted Allergy Reaction NO KNOWN ALLERGIES 04/10/2006 Date Reviewed: 01/08/2024 Reviewed by: Ilaena Naqvi LPN - Fully Assessed Reason for Visit: Results [95] Prescriptions as of 01/09/2024 - amoxicillin (POLYMOX, AMOXIL) 500 mg capsule Take 1 capsule by mouth twice daily. - clarithromycin (BIAXIN) 500 mg tab Take 1 tablet by mouth every 12 hours. Take one (1) tablet twice a day. Take all of the prescription. - Omeprazole (PRILOSEC) 40 mg capsule Take 1 capsule by mouth once daily. - CALCIUM CARBONATE/VITAMIN D3 (VITAMIN D-3 ORAL) Take by mouth once daily. - VITAMIN E ORAL Take 1 capsule by mouth once daily. - OTC NUTRITIONAL SUPPLEMENT vitamin d daily - CALCIUM 500 MG TAB Take one(1) tablet twice daily. - omega-3 fatty acids(FISH OIL 500 MG CAP) Take one(1) capsule daily. 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.2] 06/28/2007 Papanicolaou smear of cervix with atypical squa*02/08/2009 12/23/2012 Cystocele, midline [N81.11] 11/21/2010 Unspecified symptom associated with female william*11/23/2011 PMB (postmenopausal bleeding) [N95.0] 04/23/2012 ASCUS favor benign [[id number]] 12/23/2012 Encounter Status:Closed by ILEANA NAQVI on 01/09/24 Normal [facility] Bacteria Ur Culton 4 Bacteria identified Cx Nom (U) ORGANISM ID: 1 <10,000 CFU/ml Normal urogenital chava Normal [facility] Comment on above: Performed By: #### 6 30-4 #### [facility] CLIA [id number] [address] [place] [address] CNOVon 01-08-2024 CNOV Office Visit ([facility]WSTR ) -------- NÉSTORAIMEE ([id number]) 1950 F Date Time Provider Department 01/08/24 1:45 PM TRAE MCINTYRE [facility] During your visit today, we recorded the following information about you: Temperature Pulse Respiration Blood pressure 97.1 degrees 63/minute 18/minute 138/74 Weight 56 kg Trae Mcintyre PA 01/08/2024 1:59 PM Signed This note was created using NoteWriter. Subjective Aimee Duron Néstor is a 73 year old female. HPI 73-year-old female presents for urinary urgency, frequency x 1 week. Patient states she has been urinating more frequently for the past week. She also has urgency and little bit of dysuria. No blood in the urine. No abdominal pain. She does have a little bit of low back pain. No flank pain. No fevers. Daughter states patient was hospitalized about 6 months ago for UTI. No other complaint. PAST MEDICAL HISTORY Diagnosis Date Backache, unspecified Calculus of gallbladder without mention of cholecystitis or obstruction Cholelithiasis Papanicolaou smear of cervix with atypical squamous cells cannot exclude high grade squamous intraepithelial lesion (ASC-H) 2008;2010 PMH - PAST MEDICAL HISTORY OF Chronic cholecystitis PAST SURGICAL HISTORY Procedure Laterality Date COLONOSCOPY FLX DX W/COLLJ SPEC WHEN PFRMD 06/04/00 Colonoscopy COLONOSCOPY FLX DX W/COLLJ SPEC WHEN PFRMD 05/25/2014 Colonoscopy COLPOSCOPY CERVIX UPPER/ADJACENT VAGINA Colposcopy ESOPHAGOGASTRODUODENOSCO PY TRANSORAL DIAGNOSTIC 05/25/2014 EGD LAPAROSCOPY SURG CHOLECYSTECTOMY 1997 Cholecystectomy, lap LEEP PROCEDURE ([facility]PT)_*[place] 04/07/09 LIG/TRNSXJ FLP TUBE ABDL/VAG APPR UNI/BI 1979 Tubal ligation ALLERGIES No Known Allergies MEDICATIONS CALCIUM CARBONATE/VITAMIN D3 (VITAMIN D-3 ORAL) Take by mouth once daily. VITAMIN E ORAL Take 1 capsule by mouth once daily. OTC NUTRITIONAL SUPPLEMENT vitamin d daily CALCIUM 500 MG TAB Take one(1) tablet twice daily. omega-3 fatty acids(FISH OIL 500 MG CAP) Take one(1) capsule daily. amoxicillin (POLYMOX, AMOXIL) 500 mg capsule Take 1 capsule by mouth twice daily. (Patient not taking: Reported on 01/08/2024) clarithromycin (BIAXIN) 500 mg tab Take 1 tablet by mouth every 12 hours. Take one (1) tablet twice a day. Take all of the prescription. (Patient not taking: Reported on 01/08/2024) Omeprazole (PRILOSEC) 40 mg capsule Take 1 capsule by mouth once daily. (Patient not taking: Reported on 01/08/2024) FAMILY HISTORY Problem Relation Age of Onset Cancer Mother ovarian Cancer Father prostate Diabetes Mother insulin later on Social History Tobacco Use Smoking status: Never Smokeless tobacco: Never Substance Use Topics Alcohol use: No Drug use: No Review of Systems Constitutional: Negative for chills and fever. HENT: Negative for congestion, ear pain and sore throat. Respiratory: Negative for cough and shortness of breath. Cardiovascular: Negative for chest pain. Gastrointestinal: Negative for diarrhea and vomiting. Genitourinary: Positive for dysuria, frequency and urgency. Negative for hematuria. Objective BP 138/74 Pulse 63 Temp 36.2 ?C (97.1 ?F) (Tympanic) Resp 18 Wt 56 kg (123 lb 7.3 oz) SpO2 99% Physical Exam Vitals and nursing note reviewed. Constitutional: General: She is not in acute distress. Appearance: Normal appearance. She is not toxic-appearing. HENT: Nose: Nose normal. Mouth/Throat: Mouth: Mucous membranes are moist. Eyes: Conjunctiva/sclera: Conjunctivae normal. Cardiovascular: Rate and Rhythm: Normal rate and regular rhythm. Pulmonary: Effort: Pulmonary effort is normal. Breath sounds: Normal breath sounds. Abdominal: General: Abdomen is flat. Palpations: Abdomen is soft. Tenderness: There is no abdominal tenderness. There is no right CVA tenderness, left CVA tenderness, guarding or rebound. Skin: General: Skin is warm and dry. Neurological: Mental Status: She is alert. Assessment and Plan ASSESSMENT/PLAN: 1. Urinary frequency - ICD9: 788.41, ICD10: R35.0 acute - UA normal - Send urine for culture - Patient education for prevention given - UA DIP, URINE (POC) - URINE CULTURE -Advised if symptoms persist and urine culture negative, needs follow-up with PCP Diagnosis and treatment plan were discussed and questions were answered to the patient's satisfaction. Pt acknowledged understanding of concepts and follow up plan. Specific signs and symptoms that would indicate the need for higher level of care were discussed in detail warranting prompt ER evaluation. CIARRA Mendez Allergies As of Date: 01/08/2024 Noted Allergy Reaction NO KNOWN ALLERGIES 04/10/2006 Date Reviewed: 01/08/2024 Reviewed by: Ileana Naqvi LPN - Fully Assessed Reason for Visit: Urinary Frequency [1086] Cmt: Frequency, burning and lower back chan (more content not included)... Normal [facility] UA DIP, URINE (POC)on 2023 BILIRUBIN UA (POCT) Negative Negative [facility] CLARITY UA (POCT) Clear [facility] COLOR UA (POCT) [facility] GLUCOSE UA (POCT) Negative Negative mg/dL [facility] Hemoglobin Ql (U) Negative Negative [facility] KETONE UA (POCT) Negative Negative mg/dL [facility] LEUKOCYTES UA (POCT) Negative Negative [facility] NITRITE UA (POCT) Negative Negative [facility] PH UA (POCT) 7.0 4.5 - 8.0 [facility] Protein Ql (U) Negative Negative mg/dL [facility] SPECIFIC GRAVITY UA (POCT) 1.015 1.005 - 1.030 [facility] UROBILINOGEN UA (POCT) 0.2 Bianca l E.U./dL [facility] Location:[facility] [address] [place] [address], [place], [place], [id number] [place] [address] POINT OF CARE [facility] Abdomen/Pelvis WITH Contrast on 10-02-2023 Abdomen/Pelvis WITH Contrast [facility] Imaging Services [address] [place], [place] [address] Abdomen/Pelvis WITH Contrast MR#: [id number] Acct: [id number] Name: AIMEE PALM Rep #: [id number] : 1950 F 73 From: Norman kline MD PCP: Dr. Manuel Joy MD Status: [facility] Study: Abdomen/Pelvis WITH Contrast Date of Exam: Exam# [id number] Ordering Dr: Manuel Joy MD [id number] STUDY: CT ABDOMEN AND PELVIS WITH CONTRAST REASON FOR EXAM: Female, 73 years old. Abdominal bloating, discomfort, change in BM RADIATION DOSAGE (If Supplied By Facility): CTDIvol = ( 16.67 ) mGy, DLP = ( 318.31 ) mGycm TECHNIQUE: Transaxial images were obtained from the dome of the diaphragm to the symphysis pubis with oral contrast. Oral and IV Gastrografin and 100mL Isovue-300 was administered. Sagittal and coronal images were reconstructed. Individualized dose optimization techniques were used for this CT. COMPARISON: Comparison is made with prior study dated August 29, 2021. FINDINGS: Minimal linear scarring at the lung bases. Coronary artery calcification. There is a 1.1 cm cyst in the lateral superior aspect of the right lobe of the liver. A subcentimeter cyst is seen in the medial aspect of the left lobe of the liver. These are stable. There are surgical clips in the gallbladder fossa consistent with a prior cholecystectomy. Normal spleen. Normal pancreas. Normal bilateral adrenal glands. Normal right kidney. Normal left kidney. Normal visualized stomach. Normal small intestine. Large amount of fecal material is seen throughout the colon. The appendix is visualized and appears normal. There is scattered atherosclerotic calcification of the abdominal aorta, without a demonstrated aneurysm. Normal inferior vena cava. Normal retroperitoneum. Distended urinary bladder. Normal abdominal wall. There are mild degenerative changes of the visualized lumbar spine. CT/Abdomen/Pelvis WITH Contrast IMPRESSION: Large amount of fecal material is seen in the colon. Status post cholecystectomy. Small hepatic cysts. Status post cholecystectomy. Electronically Signed: Norman Davis MD at 14:40 EDT , CC: Dr. 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 [place], [place], [id number] EGFR WB > 60.0000 Normal >60 [facility] Comment on above: Performed By: #### L 9100.0200 #### [facility] [address] [place], [place], [address] MR/BMS.JIMBon 09-20-2023 MR/BMS.IMB [facility] [address] [place] [address] OFFICE VISIT Date of Service: 09/20/23 MR#: [id number] Acct: [id number] Name: AIMEE PALM Rep #: [id number] : 1950 Provider: Dr. Manuel duran MD Age/Sex: 73/F Location: [facility] Status: Signed Intake Vital Signs 08/15/23 14:02 09/20/23 09:01 Height 5 ft 6 in 5 ft 6 in Weight: 113 lb BMI 18.2 BP 132/68 H Blood Pressure Location Lt brachial Position Sitting Respiration 16 Pulse 63 Pulse Source Monitor Temp 98.2 F Temp Source Temporal Pulse Oximetry (%) 96 Oxygen Delivery Method room air Intake Visit Reasons: Hospital follow up Chief Complaint: [facility] ED FU, UTI Seal Mixer Required: No Accompanied by: Daughter Is patient in pain?: No Allergies No Known Allergies Allergy (Verified 09/20/23 08:56) Medications ???Medication ???Instructions ???Recorded ???Confirmed ???Type omega-3 fatty acids 1,000 mg 1,000 mg PO DAILY SUPPLEMENT 07/29/18 09/20/23 History capsule ibuprofen 600 mg tablet 600 mg PO Q8H PRN musculoskeletal 04/23/23 09/20/23 History pain calcium carbonate 600 mg PO DAILY 08/15/23 09/20/23 History PFSH Medical History Chronic neutropenia CKD (chronic kidney disease), stage II Chronic idiopathic thrombocytopenia BPV (benign positional vertigo) Surgical History Hx of cholecystectomy Family History Mother Cancer Heart disease Heart failure Hypertension Father Pulmonary fibrosis Social History household members: spouse Smoking Status: Never smoker alcohol intake: never substance use type: does not use HPI HPI Chief Complaint: [facility] ED FU, UTI Details: AIMEE PALM, is a 73 F who presents to the office today for follow-up. Overall is doing much better at this point. This was a slow process. She had UTI, syncopal type episode. She was on antibiotics. Since then, she has been having increased GI problems. Has longstanding had a tendency towards some constipation but worse now. Abdominal bloating, cramping, rumbling in the bowels quite a bit. Bowel movements are little better if she is taking bran flakes daily, and a tea that she drinks that helps with bowel movements. If she does that it has been a bit better but still discomfort, cramping. She had colonoscopy in 2019, Dr. Botello and recommended 10-year follow- up. She had a CAT scan 2 years ago around the time of gallbladder issues. She has not had dark black or bloody stools. No nausea or vomiting. Appetite has been doing better overall. Energy level is improving slowly. Review of systems per chart. No chest pain, chest tightness, fluttering in the chest, fever, chills. No nausea or vomiting. Physical exam. Vital signs on chart. Lungs are without wheeze, rhonchi, rales. No E/A changes are heard. Heart is regular. Not tachycardic. No clear murmur, rub, or gallop is identified. The abdomen is soft. Bowel sounds are present. Nontender nondistended abdomen. No clear palpable masses in the abdomen. ROS Const Constitutional: No body ache, chills, excessive sweating, fatigue, fever(s), frequent falls, headache(s), snoring, weakness or change in appetite Eyes Eyes: No blurry vision, change in vision, eye pain or Light sensitivity ENT ENT: No abnormal hearing, ear or mastoid pain, tinnitus, nasal congestion, headache(s), neck pain or sore throat Resp Respiratory: No cough, shortness of breath, snoring or wheezing Cardio Cardiology: No chest pain at rest, chest pain with exertion, excessive sweating, dyspnea on exertion, lightheadedness, orthopnea or palpitations Gastro GI: No abdominal pain, change in bowel habits, constipation, cramping, diarrhea, nausea/dyspepsia or vomiting Genitourinary-Female: No burning urination, painful urination, urinary incontinence or urinary frequency Musc Musculoskeletal: No abnormal gait, joint pain, back pain, limited range of motion, muscle weakness, neck pain or numbness Skin Skin: No dry skin, redness, lesions, itchy eyes, rash or wounds Neuro Neurology: No abnormal gait, abnormal hearing, weakness, frequent falls, headache(s), memory loss or numbness Psych Psychiatric: No anxiety, No change in appetite, No depression, No memory loss and No Thoughts of harming yourself/Others Endo Endocrine: No cold intolerance, excessive sweating, fatigue, flushing, heat intolerance, increased thirst/drinking or increased hunger Aller/Imm Allergy/Immunologic: No itchy eyes, seasonal allergy symptoms, hives or wheezing Kenan/Lymp Hematologic/Lymphatic: No easy bleeding or easy bruising Coding Level of Car (more content not included)... Normal [facility] C-REACTIVE PROTEINon 024 CRP [Mass/Vol] mg/L Normal 0.00 - 0.90 [facility] Comment on above: Performed By: #### 2 16752 #### [facility],[address] [place] [address] 36850 CMP with eGFRon 08-22-2023 AGE 73 years Normal [facility] Comment on above: Performed By: #### 2 50488 #### [facility],[address] [place] [address] 18636 Albumin [Mass/Vol] 3.5 g/dL Normal 3.4 - 5.0 [facility] Comment on above: Performed By: #### 2 09727 #### [facility],[address] [place] [address] 55678 Albumin/Globulin [Mass ratio] 1.1 {ratio} Normal 0.9 - 1.6 [facility] Comment on above: Performed By: #### 2 50396 #### [facility],[address] [place] [address] 36281 ALK PHOS 42 U/L Low 46 - 116 [facility] Comment on above: Performed By: #### 2 82177 #### [facility],[address] [place] [address] 73818 ALT [Catalytic activity/Vol] 13 U/L Low 16 - 63 [facility] Comment on above: Performed By: #### 2 19292 #### [facility],[address] [place] [address] 81335 Anion gap [Moles/Vol] 12 mmol/L Normal 10 - 20 [facility] Comment on above: Performed By: #### 2 49226 #### [facility],[address] [place] [address] 78457 AST [Catalytic activity/Vol] 12 U/L Low 13 - 39 [facility] Comment on above: Performed By: #### 2 75659 #### [facility],[address] [place] [address] 28252 B/C RATIO 21 ratio Normal 0 - 30 [facility] Comment on above: Performed By: #### 2 69691 #### [facility],[address] [place] [address] 38595 Bilirubin [Mass/Vol] 0.6 mg/dL Normal 0.2 - 1.0 [facility] Comment on above: Performed By: #### 2 26785 #### [facility],[address] [place] [address] 20133 Calcium [Mass/Vol] 9.2 mg/dL Normal 8.5 - 10.1 [facility] Comment on above: Performed By: #### 2 57736 #### [facility],[address] [place] [address] 24171 Chloride [Moles/Vol] 100 mmol/L Normal 98 - 107 [facility] Comment on above: Performed By: #### 2 96869 #### [facility],[address] [place] [address] 49109 CMP with eGFR Normal [facility] Comment on above: Result Comment: COMP REHENSIVE METABOLIC PANEL Performed By: #### 2 07952 #### [facility],[address] [place] [address] 89504 CO2 [Moles/Vol] 27.6 mmol/L Normal 21.0 - 32.0 [facility] Comment on above: Performed By: #### 2 67311 #### [facility],[address] [place] [address] 72079 Creatinine [Mass/Vol] 0.91 mg/dL Normal 0.55 - 1.02 [facility] Comment on above: Performed By: #### 2 06747 #### [facility],[address] [place] [address] 09587 eGFR 60 ML/MINUTE Normal 60 - 999 [facility] Comment on above: Performed By: #### 2 01733 #### [facility],[address] [place] [address] 27259 GFR/1.73 sq M.predicted among non-blacks MDRD (S/P/Bld) [Vol rate/Area] mL/min/{1.73_m2} Normal 60 - 999 [facility] Comment on above: Result Comment: ACCO RDING TO THE NATIONAL KIDNEY DISEASE EDUCATION PROGRAM(NKDE), A NORMAL eGFR IS A VALUE GREATER THAN OR EQUAL TO 60 ML/MIN/1.73 SQ METERS. CHRONIC KIDNEY DISEASE: <60mL/MIN/1.73 SQ METERS KIDNEY FAILURE: <15mL/MIN/1.73 SQ METERS THIS TEST SHOULD ONLY BE USED FOR PATIENTS 18 YEARS OF AGE AND OLDER. Performed By: #### 2 23129 #### [facility],[address] [place] [address] 94144 Globulin (S) [Mass/Vol] 3.1 g/dL Normal 1.5 - 3.8 [facility] Comment on above: Performed By: #### 2 09375 #### [facility],[address] [place] [address] 56717 Glucose [Mass/Vol] 132 mg/dL High 74 - 106 [facility] Comment on above: Performed By: #### 2 19862 #### [facility],[address] [place] [address] 34411 Potassium [Moles/Vol] 3.8 mmol/L Normal 3.5 - 5.1 [facility] Comment on above: Performed By: #### 2 55194 #### [facility],[address] [place] [address] 55829 Protein [Mass/Vol] 6.6 g/dL Normal 6.4 - 8.2 [facility] Comment on above: Performed By: #### 2 58857 #### [facility],[address] [place] [address] 15123 Sodium [Moles/Vol] 136 mmol/L Normal 136 - 145 [facility] Comment on above: Performed By: #### 2 67079 #### [facility],[address] [place] [address] 26742 Urea nitrogen [Mass/Vol] 19 mg/dL High 7 - 18 [facility] Comment on above: Performed By: #### 2 35136 #### [facility],[address] [place] [address] 68972 MAGNESIUMon 08-22-2023 Magnesium [Mass/Vol] 2.3 mg/dL Normal 1.8 - 2.4 [facility] Comment on above: Performed By: #### 2 08119 #### [facility],[address] [place] [address] 79878 SEDRATEon 08-22-2023 SEDRATE 7 mm/hr Normal 0 - 30 [facility] Comment on above: Performed By: #### 2 38492 #### [facility],[address] [place] [address] 94599 Bacteria Ur Culton 4 Bacteria identified Cx Nom (U) ORGANISM ID: 1 <10,000 CFU/ml Normal urogenital chava Normal [facility] Comment on above: Performed By: #### 6 30-4 #### [facility] CLIA [id number] [address] [place] [address] [place] URINALYSISon 08-21-2023 Amorphous NONE Normal [facility] Comment on above: Performed By: #### 2 57638 #### [facility],[address] [place] [address] 45783 Bacteria NONE Normal [facility] Comment on above: Performed By: #### 2 90456 #### [facility],[address] [place] [address] 11365 Bilirubin Ql (U) Negative Normal NORMAL: NEGATIVE [facility] Comment on above: Performed By: #### 2 37666 #### [facility],[address] [place] [address] 85679 Casts NONE Normal [facility] Comment on above: Performed By: #### 2 96203 #### [facility],[address] [place] [address] 77783 Clarity (U) clear Normal NORMAL: CLEAR [facility] Comment on above: Performed By: #### 2 25401 #### [facility],[address] [place] [address] 62780 Color (U) shivam Normal NORMAL: YELLOW [facility] Comment on above: Performed By: #### 2 21300 #### [facility],[address] [place] [address] 57337 Crystals LM Nom (Urine sed) SEE BELOW Normal [facility] Comment on above: Result Comment: CALC IUM OXLATE +1 Performed By: #### 2 17754 #### [facility],[address] [place] [address] 97721 Epi Cells FEW Normal [facility] Comment on above: Performed By: #### 2 82910 #### [facility],[address] [place] [address] 13027 Glucose Ql (U) NORM Normal NORMAL: NORMAL [facility] Comment on above: Performed By: #### 2 63624 #### [facility],[address] [place] [address] 02043 Hemoglobin Ql (U) Negative Normal NORMAL: NEGATIVE [facility] Comment on above: Performed By: #### 2 98658 #### [facility],[address] [place] [address] 90754 Ketone 5 Abnormal NORMAL: NEGATIVE [facility] Comment on above: Performed By: #### 2 99773 #### [facility],[address] [place] [address] 53409 Leukocytes 100 Abnormal NORMAL: NEGATIVE [facility] Comment on above: Performed By: #### 2 32796 #### [facility],[address] [place], [place] [address] Mucous TRACE Normal [facility] Comment on above: Performed By: #### 2 07282 #### [facility],[address] [place] [address] Nitrite Ql (U) Negative Normal NORMAL: NEGATIVE [facility] Comment on above: Performed By: #### 2 40940 #### [facility],[address] [place] [address] pH (U) 6 [pH] Normal NORMAL: 5.0-8.0 [facility] Comment on above: Performed By: #### 2 95902 #### [facility],[address] [place], [place] [address] Protein Ql (U) 30 Abnormal NORMAL: NEGATIVE [facility] Comment on above: Performed By: #### 2 61967 #### [facility],[address] [place], [place] [address] Rbc 0-5 Normal 0-3/hpf [facility] Comment on above: Performed By: #### 2 48706 #### [facility],[address] [place], [place] [address] Sp [place] 1.025 Normal NORMAL: 1.010-1.030 [facility] Comment on above: Performed By: #### 2 78017 #### [facility],[address] [place] [address] Specimen Type Void Normal [facility] Comment on above: Performed By: #### 2 00612 #### [facility],[address] [place] [address] Urinalysis dipstick W Reflex Microscopic panel (U) SEE BELOW Normal [facility] Comment on above: Result Comment: MICR OSCOPIC Performed By: #### 2 21840 #### [facility],[address] [place] [address] Urobilinog NORM Normal NORMAL: NORMAL [facility] Comment on above: Performed By: #### 2 63032 #### [facility],[address] [place] [address] Wbc 1-5 Normal 0-5/hpf [facility] Comment on above: Performed By: #### 2 83004 #### [facility],[address] [place] [address] Yeast NONE Normal [facility] Comment on above: Performed By: #### 2 10395 #### [facility],[address] [place] [address] URINE CULTURE [CCL]on 2023 Bacteria identified Cx Nom (U) URCUL See Results Below See Below CULTURE, URINE NORMAL UROGENITAL CHAVA <10,000 CFU/ml Normal urogenital chava SOURCE: Urine (Nonspecific) [facility] [address] [place] [address] Andrew Barrett III, M.D. [id number] Normal [facility] Comment on above: Performed By: #### 2 21511 #### [facility],[address] [place], [place] [address] D-Dimer Quantitative (DVT/PE )on 08-15-2023 D-DIMER QUANT 0.82 FEU/ug/m Invalid Interpretation Code 0.27-0.49 [facility] Comment on above: Result Comment: D-Di shai ELEVATED (>0.49): Additional studies and clinical assessments are indicated to conclude diagnosis of: Deep Vein Thrombosis (DVT) or Pulmonary Embolism (PE) CRITICAL VALUE VERIFIED. CALLED TO LOUIE GREENWOOD 08/15/23 1803 Laurie Lofton. RESULTS READ BACK BY SAME . Performed By: #### L 503.0105, L501.48571, L503.6030, L501.9520, L506.0400, L300.8000, L506.1000 #### [facility] [address] [place], [address] Free T3on 08-15-2023 Free T3 [Mass/Vol] 1.4 pg/mL Low 2.18-3.98 [facility] Comment on above: Performed By: #### L 503.0105, L501.66758, L503.6030, L501.9520, L506.0400, L300.8000, L506.1000 #### [facility] [address] [place], [address] Iron+Iron Binding Capacityon 08-15-2023 Iron [Mass/Vol] 64 ug/dL Normal 50-170 [facility] Comment on above: Performed By: #### L 503.0105, L501.76197, L503.6030, L501.9520, L506.0400, L300.8000, L506.1000 #### [facility] [address] [place], [address] IRON SATURATION 24.1 Normal 15.0-55.0 [facility] Comment on above: Performed By: #### L 503.0105, L501.02502, L503.6030, L501.9520, L506.0400, L300.8000, L506.1000 #### [facility] [address] [place], [address] TIBC 266 ug/dL Normal 250-450 [facility] Comment on above: Performed By: #### L 503.0105, L501.27070, L503.6030, L501.9520, L506.0400, L300.8000, L506.1000 #### [facility] [address] [facility] [address] MR/BMS.IMBon 08-15-2023 MR/BMS.IMB [facility] [address] [place] [address] OFFICE VISIT Date of Service: 08/15/23 MR#: [id number] Acct: [id number] Name: AIMEE PALM Rep #: [id number] : 1950 Provider: Dr. Manuel duran MD Age/Sex: 73/F Location: [facility] Status: Signed Intake Vital Signs 08/09/23 16:08 08/15/23 14:02 08/15/23 14:58 08/15/23 15:00 08/15/23 15:02 Height 5 ft 6 in 5 ft 6 in Weight: 116 lb BMI 18.7 BP 112/60 107/59 L 103/59 L 96/59 L Blood Pressure Location Rt brachial Rt brachial Rt brachial Rt brachial Position Sitting Supine Sitting Standing Respiration 16 Pulse 64 51 L 55 L 73 Pulse Source Monitor Monitor Monitor Monitor Temp 98.2 F Temp Source Temporal Pulse Oximetry (%) 96 Oxygen Delivery Method room air Intake Visit Reasons: [facility] Discharge FU Chief Complaint: [facility] ED FU, UTI Seal Mixer Required: No Accompanied by: Is patient in pain?: Yes (Coccyx s/p fall) Pain scale (1-10): 4 Allergies No Known Allergies Allergy (Verified 08/15/23 13:59) Medications omega-3 fatty acids 1,000 mg capsule 1,000 mg PO DAILY SUPPLEMENT 07/29/18 [History Confirmed 08/15/23] ibuprofen 600 mg tablet 600 mg PO Q8H PRN musculoskeletal pain 04/23/23 [History Confirmed 08/15/23] calcium carbonate 600 mg PO DAILY 08/15/23 [History Confirmed 08/15/23] PFSH Medical History (Updated 08/15/23 @ 15:[address] Manuel Joy MD) BPV (benign positional vertigo) Chronic idiopathic thrombocytopenia Chronic neutropenia CKD (chronic kidney disease), stage II Surgical History Hx of cholecystectomy Family History Mother Cancer Heart disease Heart failure Hypertension Father Pulmonary fibrosis Social History household members: spouse Smoking Status: Never smoker alcohol intake: never substance use type: does not use HPI HPI Chief Complaint: [facility] ED FU, UTI Details: AIMEE PALM, is a 73 F who presents to the office today for follow-up after ER/hospitalization. She had a couple of times prior to going to the emergency room, on 2 consecutive days, Sunday and I believe, where she had weakness in her legs to the point where she "went down." By description she did not lose consciousness. She was always alert, just felt very weak in the legs. On 1 of these occasions, she just simply went to her knees and her legs were behind her falling backwards. She probably did hit the coccyx and that is now quite sore. In any event, it is not clear exactly why she had these episodes. She has been more tired and fatigue lately. This is unusual for her. She has not been doing her routine housecleaning. Some of this decrease in the amount of cleaning that she has been doing she attributes to aging and being "more selective" about the type some amounts of work that she has been doing. Her mood seems somewhat low at this point in comparison with previous. Because of the second fall, it was recommended that she be taken to the emergency room for evaluation by family and friends. She was not going to necessarily go on her own volition. In any event, in the ER, she had evaluation including cardiac monitoring. Lab work. No clear evidence for dehydration. There was concern for possible UTI, however urine culture was negative. She has been again chronically constipated and that has not really necessarily change. She had a little more difficulty even more so after the hospitalization and use suppositories and has started to have some bowel movement again. In the hospital, she underwent echocardiogram which was unremarkable, normal ejection fraction, normal function, normal valves. She had brain CT which showed chronic involutional changes but no evidence of acute or recent ischemic stroke. She did not have any focal areas of numbness or tingling. No speech difficulties. No nausea or vomiting is reported. Appetite is okay. Fatigue, tired, but no chest pain, chest tightness, dyspnea on exertion. At the hospital was treated with IV fluids and antibiotic for possible or presumed UTI. She has not had any urinary symptoms. Denied having dysuria, urgency or frequency recently. She does not take any routine medications. Occasional Tylenol. Has had some occasional sharp discomfort in the left lower abdomen tends to come and go, not persistent. Nothing necessarily recent. Remote colonoscopy, believes that Dr. Bj Oropeza may have done at [facility]. Will try and obtain. Review of systems per chart. Physical exam. Vital signs on chart. Wears corrective lenses. PERRLA. Sclera are clear. TMs are unremarkable with normal light reflexes. Canals are unremarkable. Posterior pharynx is unremarka (more content not included)... Normal [facility] T4 Free Directon 08-15-2023 T4 FREE DIRECT 0.69 ng/dL Low 0.76-1.46 [facility] Comment on above: Performed By: #### L 503.0105, L501.45667, L503.6030, L501.9520, L506.0400, L300.8000, L506.1000 #### [facility] [address] [place], [place], [id number] (822 Thyroid Stim Hormone (TSH)on 08-15-2023 TSH 1.03 uIU/mL Normal 0.358-3.74 [facility] Comment on above: Performed By: #### L 503.0105, L501.84024, L503.6030, L501.9520, L506.0400, L300.8000, L506.1000 #### [facility] [address] [place], [address] Vitamin B12on 08-15-2023 Cobalamin (Vitamin B12) [Mass/Vol] 565 pg/mL Normal 211-911 [facility] Comment on above: Performed By: #### L 503.0105, L501.31231, L503.6030, L501.9520, L506.0400, L300.8000, L506.1000 #### [facility] [address] [place], [address] Vitamin D,25 Hydroxyon 08-14 Vitamin D 25-OH 54.4 ng/mL Normal [facility] Comment on above: Result Comment: Karen min D 25(OH) Status Range Deficiency <20 ng/mL (50nmol/L) Insufficiency 20 - 30 ng/mL (50 - 75 nmol/L) Sufficiency 30 - 100 ng/mL (75 - 250 nmol/L) Toxicity >100 ng/mL (>250 nmol/L) Performed By: #### L 503.0105, L501.27857, L503.6030, L501.9520, L506.0400, L300.8000, L506.1000 #### [facility] [address] [place], [address] Absolute lymphocyte countOrd ered By: Keny Hunter on 08-10-2023 Lymphocytes Auto (Unsp spec) [#/Vol] 0.68 10*3/uL 0.83-4.51 [facility] Automated blood erythrocyte count (number/volume)Ordered By: Keny Hunter on 08-10-2023 RBC (Bld) [#/Vol] 3.39 10*6/uL Low 4.2-5.4 [facility] Comment on above: Performed By: #### L 9100.0200 #### [facility] [address] [place], [address] Automated blood hematocrit ( percentage)Ordered By: Keny Hunter on 08-10-2023 Hematocrit (Bld) [Volume fraction] 32.2 % Low 37-47 [facility] Comment on above: Performed By: #### L 9100.0200 #### [facility] [address] [place], [address] Automated lymphocyte count a s percentage of total leukocytesOrdered By: Keny Hunter on 08-10-2023 Lymphocytes/100 WBC Auto (Unsp spec) 19.5 % 19-41 [facility] Basic Metabolic Profile (BMP )on 08-10-2023 BUN/CRE 16.7 RATIO Normal 10-20 [facility] Comment on above: Performed By: #### L 9100.0200 #### [facility] [address] [place], [address] CA,Total 8.5 mg/dL Normal 8.5-10.1 [facility] Comment on above: Performed By: #### L 9100.0200 #### [facility] [address] [place], [address] Chloride [Moles/Vol] 104 mmol/L Normal 98-107 [facility] Comment on above: Performed By: #### L 9100.0200 #### [facility] [address] [place], [address] CO2 [Moles/Vol] 22.0 mmol/L Normal 21.0-32.0 [facility] Comment on above: Performed By: #### L 9100.0200 #### [facility] [address] [place], [address] Creatinine [Mass/Vol] 0.84 mg/dL Normal 0.55-1.02 [facility] Comment on above: Result Comment: The validity of the calculated GFR GFRAA in patients over 70 years has not been determined. Clinical correlation is essential. Performed By: #### L 9100.0200 #### [facility] [address] [place], [address] ECRCL 50.09 ml/min Normal [facility] Comment on above: Performed By: #### L 9100.0200 #### [facility] [address] [place], [address] EST GFR - AA 85 mL/min Normal >60 [facility] Comment on above: Result Comment: Afri can Japanese GFR Calc Performed By: #### L 9100.0200 #### [facility] [address] [place], [address] GAP 9 Normal 5-15 [facility] Comment on above: Performed By: #### L 9100.0200 #### [facility] [address] [place], [address] GFR/1.73 sq M.predicted among non-blacks MDRD (S/P/Bld) [Vol rate/Area] 70 mL/min/{1.73_m2} Normal >60 [facility] Comment on above: Result Comment: Non- GFR Calc Performed By: #### L 9099.0200 #### [facility] [address] [place], [address] Glucose [Mass/Vol] 185 mg/dL High 74-106 [facility] Comment on above: Result Comment: Fast ing Glucose result greater than or equal to 126 mg/dL suggests DIABETES MELLITUS per A.D.A. criteria. Performed By: #### L 9099.0200 #### [facility] [address] [place], [address] Potassium [Moles/Vol] 3.6 mmol/L Normal 3.5-5.1 [facility] Comment on above: Performed By: #### L 9100.0200 #### [facility] [address] [place], [address] Sodium [Moles/Vol] 135 mmol/L Low 136-145 [facility] Comment on above: Performed By: #### L 9100.0200 #### [facility] [address] [place], [address] Urea nitrogen [Mass/Vol] 14 mg/dL Normal 7-18 [facility] Comment on above: Performed By: #### L 9100.0200 #### [facility] [address] [place], [address] Basophil percentageOrdered B y: Keny Hunter on 08-10-2023 Basophil percentage 2.8 mg/dL 2.5-4.9 [facility] Basophils/100 WBC (Bld) 0.3 % Normal 0-1 [facility] Comment on above: Performed By: #### L 9100.0200 #### [facility] [address] [place], [address] Chloride [Moles/Vol] 104 mmol/L 98-107 [facility] Eosinophils/100 WBC (Bld) 0.3 % Normal 0-5 [facility] Comment on above: Performed By: #### L 9100.0200 #### [facility] [address] [place], [address] Glucose [Mass/Vol] 185 mg/dL 74-106 [facility] Comment on above: Fasting Glucose resu lt greater than or equal to 126 mg/dL suggests DIABETES MELLITUS per A.D.A. criteria. Hemoglobin (Bld) [Mass/Vol] 11.1 g/dL Low 12.0-15.0 [facility] Comment on above: Performed By: #### L 9100.0200 #### [facility] [address] [place], [address] Monocytes/100 WBC (Bld) 4.0 % Normal 0-10 [facility] Comment on above: Performed By: #### L 9100.0200 #### [facility] [address] [place], [address] Neutrophils (Bld) [#/Vol] 2.7 10*3/uL 2.0-7.7 [facility] Neutrophils/100 WBC (Bld) 75.9 % High 47-70 [facility] Comment on above: Performed By: #### L 9100.0200 #### [facility] [address] [place], [address] Potassium [Moles/Vol] 3.6 mmol/L 3.5-5.1 [facility] Sodium [Moles/Vol] 135 mmol/L 136-145 [facility] WBC (Bld) [#/Vol] 3.5 10*3/uL Low 4.4-11.0 [facility] Comment on above: Performed By: #### L 9100.0200 #### [facility] [address] [place], [address] CBC W/Diff, Automatedon 05-0 3-2024 Absolute Lymph 0.68 X10 3/uL Low 0.83-4.51 [facility] Comment on above: Performed By: #### L 9099.0200 #### [facility] [address] [place], [address] Absolute Neut 2.7 X10 3/uL Normal 2.0-7.7 [facility] Comment on above: Performed By: #### L 9099.0200 #### [facility] [address] [place], [address] IG% 0.000 Normal 0.0-0.9 [facility] Comment on above: Result Comment: IG% - Immature Granulocytes (promyelocytes, myelocytes and metamyelocytes) > 1% indicates that a LEFT SHIFT is Present. Performed By: #### L 9099.0200 #### [facility] [address] [place], [address] Lymphocytes/100 WBC (Bld) 19.5 % Normal 19-41 [facility] Comment on above: Performed By: #### L 9099.0200 #### [facility] [address] [place], [address] Nucleated RBC (Bld) [#/Vol] 0 10*3/uL Normal 0-5 [facility] Comment on above: Performed By: #### L 91.0200 #### [facility] [address] [place], [address] RDW SD 42.1 fl Normal 35.1-43.9 [facility] Comment on above: Performed By: #### L 9099.0200 #### [facility] [address] [place], [address] CBC W/Diff, AutomatedOrdered By: Keny Hunter on 08-10-2023 MCH (RBC) [Entitic mass] 32.7 pg High 27.0-32.0 [facility] Comment on above: Performed By: #### L 9100.0200 #### [facility] [address] [place], [address] MCHC (RBC) [Mass/Vol] 34.5 g/dL Normal 32-36 [facility] Comment on above: Performed By: #### L 9100.0200 #### [facility] [address] [place], [address] Platelet mean volume (Bld) [Entitic vol] 8.6 fL Normal 6.2-12.0 [facility] Comment on above: Performed By: #### L 9100.0200 #### [facility] [address] [place], [address] Platelets (Bld) [#/Vol] 130 10*3/uL Low 150-450 [facility] Comment on above: Performed By: #### L 9100.0200 #### [facility] [address] [place], [address] Determination of erythrocyte mean corpuscular volume (MCV)Ordered By: Keny Hunter on 08-10-2023 MCV (RBC) [Entitic vol] 95.0 fL Normal 81-99 [facility] Comment on above: Performed By: #### L 9100.0200 #### [facility] [address] [place], [address] Echo Completeon 08-10-2023 Echo Complete [facility] [address] [place] [address] Echo Complete 08/10/23 1106 MR#: [id number] Acct: [id number] Name: AIMEE PALM Rep #: [id number] : 1950 73 From: Montrell Morgan MD Attending Dr: Dr. Keny Hunter MD Status: ADM IN Ordering Dr: Keny Hunter MD Date: 08/10/23 Location: [facility] Sex: F C Admitted: 08/08/23 Reason For Study: SYNCOPE Procedure This was a 2D Doppler, Color Flow transthoracic echocardiogram. Exam performed portable in patient room. Left Ventricle Normal LV size. Left ventricular systolic function is normal. The estimated ejection fraction is 60 %. No regional wall motion abnormalities noted. Right Ventricle Normal RV size. Normal systolic function. Atria Normal left atrium. Normal right atrium. Mitral Valve Normal mitral valve. Tricuspid Valve Normal tricuspid valve. Mild tricuspid valve insufficiency. Pulmonary artery systolic pressure is 20 mmHg. Great Vessels Normal aortic root. The pulmonary artery is normal size. Normal inferior vena cava. Pericardium/Pleural No pericardial effusion. MMode/2D Measurements Calculations LVIDd: 3.4 cm IVSd: 1.3 cm LAV(MOD-bp): 31.8 ml LVIDs: 2.6 cm LVPWd: 1.6 cm LAV(MOD-bp) Indexed: 19.8 ml/m2 RVDd: 2.9 cm FS: 23.2 % LAV(MOD-sp2): 28.4 ml LAV(MOD-sp4): 31.7 ml LVAd ap4: 18.9 cm2 SV(MOD-sp4): 32.8 ml SV(sp4-el): 33.6 ml LVLd ap4: 6.2 cm EDV(MOD-sp4): 48.6 ml EDV(sp4-el): 48.6 ml LVAs ap4: 9.4 cm2 LVLs ap4: 5.0 cm ESV(MOD-sp4): 15.8 ml ESV(sp4-el): 15.0 ml EF(MOD-sp4): 67.5 % EF(sp4-el): 69.2 % LA A4 area: 13.9 cm2 LA dimension(2D): 2.2 cm RA A4 area: 15.8 cm2 TAPSE: 2.1 cm Time Measurements MV dec time: 0.32 sec Doppler Measurements Calculations MV E max alex: 67.1 cm/sec Lat Peak E' Alex: 9.8 cm/sec Med Peak E' Alex: 8.0 cm/sec MV A max alex: 65.3 cm/sec E/E' lat: 6.8 E/E' med: 8.4 MV E/A: 1.0 MV V2 max: 78.2 cm/sec Ao V2 max: 128.8 cm/sec MV max P.4 mmHg MV dec slope: 211.5 cm/sec2 Ao max P.6 mmHg MV V2 mean: 46.0 cm/sec Ao V2 mean: 87.0 cm/sec MV mean P.99 mmHg Ao mean P.5 mmHg MV V2 VTI: 35.7 cm Ao V2 VTI: 27.8 cm AV (velocity ratio): 0.92 LV V1 max: 116.6 cm/sec PA V2 max: 58.7 cm/sec TR max alex: 205.9 cm/sec LV V1 max P.4 mmHg PA V2 mean: 39.3 cm/sec TR max P.0 mmHg LV V1 mean P.0 mmHg LV V1 mean: 81.0 cm/sec LV V1 VTI: 25.6 cm ECHO/Echo Complete Interpretation Summary Normal LV size. Left ventricular systolic function is normal. The estimated ejection fraction is 60 %. Structurally normal valves. Ordering Physician: Keny Hunter Referring Physician: Jennifer Jackson Performed By: Suzanne Meza RCS 08/10/23 1631 Date Montrell Morgan MD CC: Dr. Jennifer Jackson MD; Dr. Keny Hunter MD; Dr. 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 [place], [place], [id number] Erythrocyte distribution wid th standard deviationOrdered By: Keny Hunter on 08-10-2023 Erythrocyte distribution width (RBC) [Entitic vol] 42.1 fL 35.1-43.9 [facility] Immature granulocytes/100 WB C Auto (Bld)Ordered By: Keny Hunter on 08-10-2023 Immature granulocytes/100 WBC (Bld) 0.000 % 0.0-0.9 [facility] Comment on above: IG% - Immature Granu locytes (promyelocytes, myelocytes and metamyelocytes) > 1% indicates that a LEFT SHIFT is Present. Laboratory - Chemistry and C hemistry - challengeOrdered By: Keny Hunter on 08-10-2023 CO2 [Moles/Vol] 22.0 mmol/L 21.0-32.0 [facility] Magnesium [Mass/Vol] 1.9 mg/dL 1.6-2.6 [facility] Urea nitrogen/Creatinine [Mass ratio] 16.7 mg/mg 10-20 [facility] - Hematology and Cell countsOrdered By: Keny Hunter on 08-10-2023 Nucleated RBC/100 WBC (Bld) [Ratio] 0 % 0-5 [facility] Magnesiumon 08-10-2023 Magnesium [Mass/Vol] 1.9 mg/dL Normal 1.6-2.6 [facility] Comment on above: Performed By: #### L 9100.0200 #### [facility] [address] [place], [place], [id number] No Panel InformationOrdered By: Keny Hunter on 08-10-2023 Estimated Creatinine Clearance Calc 50.09 ml/min [facility] Estimated GFR (MDRD) Amer 85 mL/min >60 [facility] Comment on above: GFR Calc Estimated GFR (MDRD) Non-Af Amer 70 mL/min >60 [facility] Comment on above: Non- GFR Calc Phosphoruson 08-10-2023 Phosphate [Mass/Vol] 2.8 mg/dL Normal 2.5-4.9 [facility] Comment on above: Performed By: #### L 9100.0200 #### [facility] [address] [place], [address] Serum or plasma calcium fide urement (mass/volume)Ordered By: Keny Hunter on 08-10-2023 Calcium [Mass/Vol] 8.5 mg/dL 8.5-10.1 [facility] Serum or plasma creatinine m easurement (mass/volume)Ordered By: Keny Hunter on 08-10-2023 Creatinine [Mass/Vol] 0.84 mg/dL 0.55-1.02 [facility] Comment on above: The validity of the calculated GFR & GFRAA in patients over 70 years has not been determined. Clinical correlation is essential. Serum or plasma urea nitroge n measurement (mass/volume)Ordered By: Keny Hunter on 08-10-2023 Urea nitrogen [Mass/Vol] 14 mg/dL 7-18 [facility] Thin prep Papanicolaou smear with manual screeningOrdered By: Keny uHnter on 08-10-2023 Thin prep Papanicolaou smear with manual screening 9 5-15 [facility] Basophil percentageOrdered B y: Jennifer White on 08-09-2023 Bilirubin [Mass/Vol] 0.90 mg/dL 0.20-1.00 [facility] Comment on above: For patients on eltr ombopag therapy, use of Dimension Jamison TBIL is not recommended. Protein [Mass/Vol] 6.2 g/dL 6.4-8.2 [facility] CBC W/Diff, Automatedon Absolute Lymph 1.27 X10 3/uL Normal 0.83-4.51 [facility] Comment on above: Performed By: #### L 100.0100, L500.2500 #### [facility] [address] [place], [address] Absolute Neut 2.0 X10 3/uL Normal 2.0-7.7 [facility] Comment on above: Performed By: #### L 100.0100, L500.2500 #### [facility] [address] [place], [address] Basophils/100 WBC (Bld) 0.6 % Normal 0-1 [facility] Comment on above: Performed By: #### L 100.0100, L500.2500 #### [facility] [address] [place], [address] Eosinophils/100 WBC (Bld) 0.8 % Normal 0-5 [facility] Comment on above: Performed By: #### L 100.0100, L500.2500 #### [facility] [address] [place], [address] Erythrocyte distribution width (RBC) [Ratio] 12.1 % Normal 11.6-14.6 [facility] Comment on above: Performed By: #### L 100.0100, L500.2500 #### [facility] [address] [place], [address] Hematocrit (Bld) [Volume fraction] 33.0 % Low 37-47 [facility] Comment on above: Performed By: #### L 100.0100, L500.2500 #### [facility] [address] [place], [address] Hemoglobin (Bld) [Mass/Vol] 11.3 g/dL Low 12.0-15.0 [facility] Comment on above: Performed By: #### L 100.0100, L500.2500 #### [facility] [address] [place], [address] IG% 0.300 Normal 0.0-0.9 [facility] Comment on above: Result Comment: IG% - Immature Granulocytes (promyelocytes, myelocytes and metamyelocytes) > 1% indicates that a LEFT SHIFT is Present. Performed By: #### L 100.0100, L500.2500 #### [facility] [address] [place], [address] Lymphocytes/100 WBC (Bld) 35.6 % Normal 19-41 [facility] Comment on above: Performed By: #### L 100.0100, L500.2500 #### [facility] [address] [place], [address] MCH (RBC) [Entitic mass] 32.9 pg High 27.0-32.0 [facility] Comment on above: Performed By: #### L 100.0100, L500.2500 #### [facility] [address] [place], [address] MCHC (RBC) [Mass/Vol] 34.2 g/dL Normal 32-36 [facility] Comment on above: Performed By: #### L 100.0100, L500.2500 #### [facility] [address] [place], [address] MCV (RBC) [Entitic vol] 96.2 fL Normal 81-99 [facility] Comment on above: Performed By: #### L 100.0100, L500.2500 #### [facility] [address] [place], [address] Monocytes/100 WBC (Bld) 6.2 % Normal 0-10 [facility] Comment on above: Performed By: #### L 100.0100, L500.2500 #### [facility] [address] [place], [address] Neutrophils/100 WBC (Bld) 56.5 % Normal 47-70 [facility] Comment on above: Performed By: #### L 100.0100, L500.2500 #### [facility] [address] [place], [address] Nucleated RBC (Bld) [#/Vol] 0 10*3/uL Normal 0-5 [facility] Comment on above: Performed By: #### L 100.0100, L500.2500 #### [facility] [address] [place], [address] Platelet mean volume (Bld) [Entitic vol] 9.1 fL Normal 6.2-12.0 [facility] Comment on above: Performed By: #### L 100.0100, L500.2500 #### [facility] [address] [place], [address] Platelets (Bld) [#/Vol] 134 10*3/uL Low 150-450 [facility] Comment on above: Performed By: #### L 100.0100, L500.2500 #### [facility] [address] [place], [address] RBC (Bld) [#/Vol] 3.43 10*6/uL Low 4.2-5.4 [facility] Comment on above: Performed By: #### L 100.0100, L500.2500 #### [facility] [address] [place], [address] RDW SD 42.4 fl Normal 35.1-43.9 [facility] Comment on above: Performed By: #### L 100.0100, L500.2500 #### [facility] [address] [place], [address] WBC (Bld) [#/Vol] 3.6 10*3/uL Low 4.4-11.0 [facility] Comment on above: Performed By: #### L 100.0100, L500.2500 #### [facility] [address] [place], [address] Comprehensive Metabolic Prof ilon 08-09-2023 Albumin [Mass/Vol] 3.2 g/dL Normal 3.2-5.0 [facility] Comment on above: Performed By: #### L 100.0100, L500.2500 #### [facility] [address] [place], [address] Albumin/Globulin [Mass ratio] 1.1 {ratio} Normal 0.9-2.4 [facility] Comment on above: Performed By: #### L 100.0100, L500.2500 #### [facility] [address] [place], [address] ALK P 38 U/L Low 45-117 [facility] Comment on above: Performed By: #### L 100.0100, L500.2500 #### [facility] [address] [place], [address] ALT [Catalytic activity/Vol] 15 U/L Normal 13-56 [facility] Comment on above: Performed By: #### L 100.0100, L500.2500 #### [facility] [address] [place], [address] AST [Catalytic activity/Vol] 13 U/L Low 15-37 [facility] Comment on above: Performed By: #### L 100.0100, L500.2500 #### [facility] [address] [place], [address] Bilirubin [Mass/Vol] 0.90 mg/dL Normal 0.20-1.00 [facility] Comment on above: Result Comment: For patients on eltrombopag therapy, use of Dimension Jamison TBIL is not recommended. Performed By: #### L 100.0100, L500.2500 #### [facility] [address] [place], [address] BUN/CRE 18.2 RATIO Normal 10-20 [facility] Comment on above: Performed By: #### L 100.0100, L500.2500 #### [facility] [address] [place], [address] CA,Total 8.4 mg/dL Low 8.5-10.1 [facility] Comment on above: Performed By: #### L 100.0100, L500.2500 #### [facility] [address] [place], [address] Chloride [Moles/Vol] 105 mmol/L Normal 98-107 [facility] Comment on above: Performed By: #### L 100.0100, L500.2500 #### [facility] [address] [place], [address] CO2 [Moles/Vol] 24.0 mmol/L Normal 21.0-32.0 [facility] Comment on above: Performed By: #### L 100.0100, L500.2500 #### [facility] [address] [place], [address] Creatinine [Mass/Vol] 0.66 mg/dL Normal 0.55-1.02 [facility] Comment on above: Result Comment: The validity of the calculated GFR GFRAA in patients over 70 years has not been determined. Clinical correlation is essential. Performed By: #### L 100.0100, L500.2500 #### [facility] [address] [place], [address] ECRCL 50.16 ml/min Normal [facility] Comment on above: Performed By: #### L 100.0100, L500.2500 #### [facility] [address] [place], [address] EST GFR - AA 112 mL/min Normal >60 [facility] Comment on above: Result Comment: Afri can Japanese GFR Calc Performed By: #### L 100.0100, L500.2500 #### [facility] [address] [place], [address] GAP 7 Normal 5-15 [facility] Comment on above: Performed By: #### L 100.0100, L500.2500 #### [facility] [address] [place], [address] GFR/1.73 sq M.predicted among non-blacks MDRD (S/P/Bld) [Vol rate/Area] 93 mL/min/{1.73_m2} Normal >60 [facility] Comment on above: Result Comment: Non- GFR Calc Performed By: #### L 100.0100, L500.2500 #### [facility] [address] [place], [address] Globulin (S) [Mass/Vol] 3.0 g/dL Normal 2.2-4.2 [facility] Comment on above: Performed By: #### L 100.0100, L500.2500 #### [facility] [address] [place], [address] Glucose [Mass/Vol] 97 mg/dL Normal 74-106 [facility] Comment on above: Performed By: #### L 100.0100, L500.2500 #### [facility] [address] [place], [address] Potassium [Moles/Vol] 3.9 mmol/L Normal 3.5-5.1 [facility] Comment on above: Performed By: #### L 100.0100, L500.2500 #### [facility] [address] [place], [address] Sodium [Moles/Vol] 136 mmol/L Normal 136-145 [facility] Comment on above: Performed By: #### L 100.0100, L500.2500 #### [facility] [address] [place], [address] T PROT 6.2 g/dL Low 6.4-8.2 [facility] Comment on above: Performed By: #### L 100.0100, L500.2500 #### [facility] [address] [place], [address] Urea nitrogen [Mass/Vol] 12 mg/dL Normal 7-18 [facility] Comment on above: Performed By: #### L 100.0100, L500.2500 #### [facility] [address] [place], [address] Laboratory - Chemistry and C hemistry - challengeOrdered By: Jennifer Jackson on 08-09-2023 Albumin/Globulin [Mass ratio] 1.1 {ratio} 0.9-2.4 [facility] ALP [Catalytic activity/Vol] 38 U/L 45-117 [facility] ALT [Catalytic activity/Vol] 15 U/L 13-56 [facility] Globulin (S) [Mass/Vol] 3.0 g/dL 2.2-4.2 [facility] Thin prep Papanicolaou smear with manual screeningOrdered By: Jennifer Jackson on 08-09-2023 Thin prep Papanicolaou smear with manual screening 3.2 g/dL 3.2-5.0 [facility] Thin prep Papanicolaou smear with manual screening 13 U/L 15-37 [facility] Urine Cultureon 08-09-2023 URC Culture exhibits no growth. Normal [facility] Comment on above: Performed By: #### L 503.0105, L501.66597, L503.6030, L501.9520, L506.0400, L300.8000, L506.1000 #### [facility] [address] [place], [address] 12 Lead EKGon 08-08-2023 12 Lead EKG [facility] Cardiovascular Services [address] [facility] [facility] [place] [address] 12 Lead EKG 08/08/23 1519 MR#: [id number] Acct: [id number] Name: AIMEE PALM Domi Rep #: [id number] : 1950 73 From: Montrell Morgan MD Attending Dr: Dr. Keny Hunter MD Status: ADM IN Ordering Dr: Roula Dominguez MD Date: 08/08/23 Location: [facility] Sex: F C Admitted: 08/08/23 Test Reason : FALL/DIZZINESS Blood Pressure : / mmHG Vent. Rate : 061 BPM Atrial Rate : 061 BPM P-R Int : 174 ms QRS Dur : 090 ms QT Int : 390 ms P-R-T Axes : 078 -01 039 degrees QTc Int : 392 ms Normal sinus rhythm Septal infarct , age undetermined Abnormal ECG Confirmed by ESTIVEN GUAJARDO, MONTRELL ([id number]), general expeditor CELESTE DUMONT ([id number]) on 08/09/2023 11:37:16 AM Referred By: Jennifer Jackson Confirmed By:MONTRELL MORGAN MD 08/09/23 1137 Date Montrell Morgan MD CC: Dr. Roula Dominguez MD; Dr. Jennifer Jackson MD; Dr. Keny Hunter MD; Dr. Manuel Joy MD Signed Normal [facility] Absolute lymphocyte countOrd ered By: Roula Dominguez on 08-08-2023 Lymphocytes Auto (Unsp spec) [#/Vol] 1.13 10*3/uL 0.83-4.51 [facility] Automated lymphocyte count a s percentage of total leukocytesOrdered By: Roula Dominguez on 08-08-2023 Lymphocytes/100 WBC Auto (Unsp spec) 28.3 % 19-41 [facility] Basic Metabolic Profile (BMP )on 08-08-2023 BUN/CRE 20.2 RATIO High 10-20 [facility] Comment on above: Order Comment: 1Y Performed By: #### L 100.0100, L500.2500 #### [facility] [address] [place], [address] CA,Total 8.6 mg/dL Normal 8.5-10.1 [facility] Comment on above: Order Comment: 1Y Performed By: #### L 100.0100, L500.2500 #### [facility] [address] [place], [address] Chloride [Moles/Vol] 103 mmol/L Normal 98-107 [facility] Comment on above: Order Comment: 1Y Performed By: #### L 100.0100, L500.2500 #### [facility] [address] [place], [address] CO2 [Moles/Vol] 29.0 mmol/L Normal 21.0-32.0 [facility] Comment on above: Order Comment: 1Y Performed By: #### L 100.0100, L500.2500 #### [facility] [address] [place], [address] Creatinine [Mass/Vol] 0.94 mg/dL Normal 0.55-1.02 [facility] Comment on above: Order Comment: 1Y Result Comment: The validity of the calculated GFR GFRAA in patients over 70 years has not been determined. Clinical correlation is essential. Performed By: #### L 100.0100, L500.2500 #### [facility] [address] [place], [address] ECRCL 42.15 ml/min Normal [facility] Comment on above: Order Comment: 1Y Performed By: #### L 100.0100, L500.2500 #### [facility] [address] [place], [address] EST GFR - AA 75 mL/min Normal >60 [facility] Comment on above: Order Comment: 1Y Result Comment: Afri can Japanese GFR Calc Performed By: #### L 100.0100, L500.2500 #### [facility] [address] [place], [address] GAP 4 Low 5-15 [facility] Comment on above: Order Comment: 1Y Performed By: #### L 100.0100, L500.2500 #### [facility] [address] [place], [address] GFR/1.73 sq M.predicted among non-blacks MDRD (S/P/Bld) [Vol rate/Area] 62 mL/min/{1.73_m2} Normal >60 [facility] Comment on above: Order Comment: 1Y Result Comment: Non- GFR Calc Performed By: #### L 100.0100, L500.2500 #### [facility] [address] [place], [address] Glucose [Mass/Vol] 100 mg/dL Normal 74-106 [facility] Comment on above: Order Comment: 1Y Result Comment: Fast ing Glucose result from 100 to 125 mg/dL suggests IMPAIRED HOMEOSTASIS per A.D.A. criteria. Performed By: #### L 100.0100, L500.2500 #### [facility] [address] [place], [address] Potassium [Moles/Vol] 3.6 mmol/L Normal 3.5-5.1 [facility] Comment on above: Order Comment: 1Y Performed By: #### L 100.0100, L500.2500 #### [facility] [address] [place], [address] Sodium [Moles/Vol] 136 mmol/L Normal 136-145 [facility] Comment on above: Order Comment: 1Y Performed By: #### L 100.0100, L500.2500 #### [facility] [address] [place], [address] Urea nitrogen [Mass/Vol] 19 mg/dL High 7-18 [facility] Comment on above: Order Comment: 1Y Performed By: #### L 100.0100, L500.2500 #### [facility] [address] [place], [address] Basophil percentageOrdered B y: Roula Dominguez on 08-08-2023 Basophil percentage 10-25 SEEN /hpf 0-5 [facility] Basophils/100 WBC (Bld) 0.3 % 0-1 [facility] Chloride [Moles/Vol] 103 mmol/L 98-107 [facility] Eosinophils/100 WBC (Bld) 0.3 % 0-5 [facility] Glucose [Mass/Vol] 100 mg/dL 74-106 [facility] Comment on above: Fasting Glucose resu lt from 100 to 125 mg/dL suggests IMPAIRED HOMEOSTASIS per A.D.A. criteria. Hemoglobin (Bld) [Mass/Vol] 12.8 g/dL 12.0-15.0 [facility] Monocytes/100 WBC (Bld) 7.3 % 0-10 [facility] Neutrophils (Bld) [#/Vol] 2.5 10*3/uL 2.0-7.7 [facility] Neutrophils/100 WBC (Bld) 63.3 % 47-70 [facility] Potassium [Moles/Vol] 3.6 mmol/L 3.5-5.1 [facility] Sodium [Moles/Vol] 136 mmol/L 136-145 [facility] WBC (Bld) [#/Vol] 4.0 10*3/uL 4.4-11.0 [facility] Bilirubin Test strip Ql (U)O rdered By: Roula Dominguez on 08-08-2023 Bilirubin Ql (U) Negative Negative [facility] Brain/Head without Contrasto n 08-08-2023 Brain/Head without Contrast [facility] Imaging Services [address] [place] [address] Brain/Head without Contrast MR#: [id number] Acct: [id number] Name: AIMEE PALM Rep #: [id number] : 1950 F 73 From: Edis levy MD PCP: Dr. Manuel Joy MD Status: REG ER Study: Brain/Head without Contrast Date of Exam: 05/02 Exam# [id number] Ordering Dr: Roula Dominguez MD [id number] EXAMINATION : Head CT w/out contrast HISTORY : syncope COMPARISON : None. TECHNIQUE : Multiple contiguous axial images were obtained from the skull base to the vertex without intravenous contrast. A radiation dose optimization technique was used for this scan. FINDINGS : There is no evidence for acute intracranial hemorrhage, mass effect, or midline shift. There is no extra-axial fluid collection. There are periventricular white matter changes consistent with chronic microvascular ischemic disease. There is sulcal widening and ventricular enlargement consistent with cerebral atrophy. There is normal rodriguez-white differentiation, without CT evidence of acute ischemia or infarct. The skull base and calvarium are unremarkable. The orbits are unremarkable. The paranasal sinuses are clear. The mastoid air cells are well-aerated. The soft tissues are unremarkable. CT/Brain/Head without Contrast IMPRESSION: No acute intracranial abnormality. Chronic involutional and ischemic changes of the brain. Electronically Signed: Edis Torres MD at 16:45 EDT , CC: Dr. Roula Dominguez MD; Dr. Manuel Joy MD Shipyard Painter: Signed Normal [facility] CBC W/Diff, Automatedon 05-0 -2023 Absolute Lymph 1.13 X10 3/uL Normal 0.83-4.51 [facility] Comment on above: Performed By: #### L 100.0100, L500.2500 #### [facility] [address] [place], [address] Absolute Neut 2.5 X10 3/uL Normal 2.0-7.7 [facility] Comment on above: Performed By: #### L 100.0100, L500.2500 #### [facility] [address] [place], [address] Basophils/100 WBC (Bld) 0.3 % Normal 0-1 [facility] Comment on above: Performed By: #### L 100.0100, L500.2500 #### [facility] [address] [place], [address] Eosinophils/100 WBC (Bld) 0.3 % Normal 0-5 [facility] Comment on above: Performed By: #### L 100.0100, L500.2500 #### [facility] [address] [place], [address] Erythrocyte distribution width (RBC) [Ratio] 12.3 % Normal 11.6-14.6 [facility] Comment on above: Performed By: #### L 100.0100, L500.2500 #### [facility] [address] [place], [address] Hematocrit (Bld) [Volume fraction] 37.6 % Normal 37-47 [facility] Comment on above: Performed By: #### L 100.0100, L500.2500 #### [facility] [address] [place], [address] Hemoglobin (Bld) [Mass/Vol] 12.8 g/dL Normal 12.0-15.0 [facility] Comment on above: Performed By: #### L 100.0100, L500.2500 #### [facility] [address] [place], [address] IG% 0.500 Normal 0.0-0.9 [facility] Comment on above: Result Comment: IG% - Immature Granulocytes (promyelocytes, myelocytes and metamyelocytes) > 1% indicates that a LEFT SHIFT is Present. Performed By: #### L 100.0100, L500.2500 #### [facility] [address] [place], [address] Lymphocytes/100 WBC (Bld) 28.3 % Normal 19-41 [facility] Comment on above: Performed By: #### L 100.0100, L500.2500 #### [facility] [address] [place], [address] MCH (RBC) [Entitic mass] 33.4 pg High 27.0-32.0 [facility] Comment on above: Performed By: #### L 100.0100, L500.2500 #### [facility] [address] [place], [address] MCHC (RBC) [Mass/Vol] 34.0 g/dL Normal 32-36 [facility] Comment on above: Performed By: #### L 100.0100, L500.2500 #### [facility] [address] [place], [address] MCV (RBC) [Entitic vol] 98.2 fL Normal 81-99 [facility] Comment on above: Performed By: #### L 100.0100, L500.2500 #### [facility] [address] [place], [address] Monocytes/100 WBC (Bld) 7.3 % Normal 0-10 [facility] Comment on above: Performed By: #### L 100.0100, L500.2500 #### [facility] [address], [address] Neutrophils/100 WBC (Bld) 63.3 % Normal 47-70 [facility] Comment on above: Performed By: #### L 100.0100, L500.2500 #### [facility] [address] [place], [address] Nucleated RBC (Bld) [#/Vol] 0 10*3/uL Normal 0-5 [facility] Comment on above: Performed By: #### L 100.0100, L500.2500 #### [facility] [address] [place], [address] Platelet mean volume (Bld) [Entitic vol] 8.7 fL Normal 6.2-12.0 [facility] Comment on above: Performed By: #### L 100.0100, L500.2500 #### [facility] [address] [place], [address] Platelets (Bld) [#/Vol] 155 10*3/uL Normal 150-450 [facility] Comment on above: Performed By: #### L 100.0100, L500.2500 #### [facility] [address] [place], [address] RBC (Bld) [#/Vol] 3.83 10*6/uL Low 4.2-5.4 [facility] Comment on above: Performed By: #### L 100.0100, L500.2500 #### [facility] [address] [place], [address] RDW SD 44.2 fl High 35.1-43.9 [facility] Comment on above: Performed By: #### L 100.0100, L500.2500 #### [facility] [address] [place], [address] WBC (Bld) [#/Vol] 4.0 10*3/uL Low 4.4-11.0 [facility] Comment on above: Performed By: #### L 100.0100, L500.2500 #### [facility] [address] [place], [address] Chest 1 View (Portable)on Chest 1 View (Portable) [facility] Imaging Services [address] [place] [address] Chest 1 View (Portable) MR#: [id number] Acct: [id number] Name: AIMEE PALM Rep #: [id number] : 1950 F 73 From: Edis levy MD PCP: Dr. Manuel Joy MD Status: REG ER Study: Chest 1 View (Portable) Date of Exam: 08/08/23 Exam# [id number] Ordering Dr: Roula Dominguez MD [id number] INDICATION: sob EXAMINATION/TECHNIQUE: X-RAY - XR Chest 1 View COMPARISON: None. FINDINGS: Hyperinflated lungs. No definite acute lung findings. Tortuous and calcified thoracic aorta. The heart is not enlarged. No pleural effusion or pneumothorax. No acute osseous abnormalities. RAD/Chest 1 View (Portable) IMPRESSION: Hyperinflated lungs which can be seen in COPD. No acute radiographic abnormalities. Electronically Signed: Edis Torres MD at 16:47 EDT , CC: Dr. Roula Dominguez MD; Dr. Manuel Joy MD Shipyard Painter: Signed Normal [facility] Culture, urineOrdered By: Peng Dominguez on 08-08-2023 Bacteria identified Cx Nom (U) Culture exhibits no growth. [facility] Determination of erythrocyte mean corpuscular volume (MCV)Ordered By: Roula Dominguez on 08-08-2023 MCV (RBC) [Entitic vol] 98.2 fL 81-99 [facility] Emergency Department Summary on 08-08-2023 Emergency Department Summary [facility] Medical Records Department [address] [place] [address] Emergency Department Summary 08/08/23 MR#: [id number] Acct: [id number] Name: AIMEE PALM Rep #: [id number] : 1950 73 From: Roula Dominguez MD PCP: Dr. Manuel Joy MD Status:REG ER Location: ED HPI History of Present Illness Chief Complaint: Weakness Informant: patient Narrative Narrative: 73-year-old female presenting with generalized weakness and fatigue. Patient had a syncopal episode prior to arrival. Patient states she did not feel this coming on and she just collapsed to the ground. She denies chest pain or shortness of breath. Denies fever. She states she has felt weak and tired for the last few days. She complains of mild headache. Denies nausea or vomiting. Denies abdominal pain. She states it took a few minutes for her to get up but she was able to ambulate after the syncopal episode. Prior similar symptoms: No Recent Illness/Hospitalization: No PFSH PFSH Medical History (Updated 08/08/23 @ 19:[address] Jennifer Jackson MD) BPV (benign positional vertigo) Chronic idiopathic thrombocytopenia Chronic neutropenia CKD (chronic kidney disease), stage II Home Medications omega-3 fatty acids 1,000 mg capsule 1,000 mg PO DAILY SUPPLEMENT 07/29/18 [History Last Taken 08/08/23] ibuprofen 600 mg tablet 600 mg PO Q8H PRN musculoskeletal pain 04/23/23 [History Last Taken Unknown] Allergy/AdvReac Type Severity Reaction Status Date / Time No Known Allergies Allergy Verified 08/08/23 13:58 Family History (Updated 08/08/23 @ 19:[address] Jennifer Jackson MD) Mother Cancer Heart disease Heart failure Hypertension Father Pulmonary fibrosis Surgical History Hx of cholecystectomy Social History (Updated 08/08/23 @ 19:[address] Jennifer Jackson MD) household members: spouse Smoking Status: Never smoker alcohol intake: never substance use type: does not use ROS ROS ED Constitutional Constitutional ED: Denies fever(s) Eyes Eyes: Denies change in vision ENT ENT ED: Denies rhinorrhea or sore throat Cardiovascular Cardiovascular: Denies chest pain or palpitations Respiratory/Chest Respiratory/Chest: Denies cough or dyspnea Gastrointestinal Gastrointestinal: Denies abdominal pain, diarrhea, nausea or vomiting Genitourinary Genitourinary ED: Denies dysuria Musculoskeletal Musculoskeletal: Denies myalgias Integumentary Denies rash Neurologic Neurologic: Reports headache(s) Psychiatric Psychiatric: Denies suicidal thoughts EXAM Physical Exam Const Vital Signs: 08/08/23 13:58 08/08/23 14:12 08/08/23 15:58 Temperature 97.6 F L Temperature Source Temporal Pulse Rate 89 68 Respiratory Rate 16 15 Respiratory Effort Normal Non-Labored Respiratory Pattern Normal Blood Pressure 131/89 H 130/78 H Blood Pressure Mean 103 95 Pulse Ox 98 98 Oxygen Delivery Method Room Air Room Air 08/08/23 17:00 08/08/23 19:00 08/08/23 19:00 Temperature 98.1 F 98.1 F Temperature Source Temporal Pulse Rate 78 75 75 Respiratory Rate 19 H 16 16 Respiratory Effort Respiratory Pattern Blood Pressure 147/68 H 137/67 H 137/67 H Blood Pressure Mean 94 90 90 Pulse Ox 96 99 99 Oxygen Delivery Method Room Air Room Air 08/08/23 19:00 Temperature 98.1 F Temperature Source Temporal Pulse Rate 75 Respiratory Rate 16 Respiratory Effort Respiratory Pattern Blood Pressure 137/67 H Blood Pressure Mean 90 Pulse Ox 99 Oxygen Delivery Method Room Air Positive well nourished and well developed General Appearance ED: well developed HEENT Reports normocephalic and head/scalp atraumatic Eyes PERRL and EOMs intact bilaterally Neck supple General: Negative for tenderness Chest Wall inspection of chest normal Resp normal respiratory effort and clear to auscultation bilaterally Cardio regular rate and regular rhythm GI non-tender and non-distended Palpation: soft; Negative for guarding or rebound tenderness present no CVA tenderness Extremity normal to inspection Neuro oriented x3 Sensorium / Orientation: alert Psych mental status grossly normal Skin no rashes or lesions noted MDM MDM MDM Narrative Medical decision making narrative: 73-year-old female presenting with generalized weakness, fatigue, syncopal episode. Differential diagnosis includes vasovagal syncope, dysrhythmia, ACS, viral syndrome, UTI. EKG is sinus rhythm rate of 61 with no acute ischemic changes. CBC unremarkable, white count 4.0. Chemistries unremarkable other than BUN 19. Troponin and delta troponin negative. Urinalysis shows 10-25 white blood cells, 1+ bacteria. Urine culture was sent. (more content not included)... Normal [facility] Erythrocyte distribution wid th ratioOrdered By: Roula Dominguez on 08-08-2023 Erythrocyte distribution width (RBC) [Ratio] 12.3 % 11.6-14.6 [facility] Erythrocyte distribution wid th standard deviationOrdered By: Roula Dominguez on 08-08-2023 Erythrocyte distribution width (RBC) [Entitic vol] 44.2 fL 35.1-43.9 [facility] H AND P Exam - [facility] 08-08-2023 H&P Exam - Hospitalist [facility] Medical Records Department [address] [place] [address] H P Exam - Hospitalist 08/08/231924 MR#: [id number] Acct: [id number] Name: AIMEE PALM Rep #: [id number] : 1950 73 From: Jennifer Jackson MD PCP: Dr. Manuel Joy MD Status:ADM IN Location: [place] [id number] HPI - General General Date of Admission: 08/08/23 Date of Service: 08/08/23 Chief Complaint: Weakness, malaise, fatigue, syncopal event. HPI Narrative The patient is a 73 y/o w/ PMHx: CKD stage II per GFR trending, Hx Chronic thrombocytopenia, Chronic neutropneia, Hx BPPV who presents to the [facility] ED on 08/08/23 with history of generalized fatigue, malaise and weakness x 4-5 days however it has been worsening with increased urinary frequency and itching/burning sensation over the last 3-4 days with reported sudden onset syncopal event just prior to deciding to come to the ED with no specific prodrome such as lightheadedness, dizziness, ch est pain or dyspnea only a mild headache lasting only seconds but it did take a couple minutes to ge t up and and ambulate after this episode with no recent fevers or chills prompting eventual ED evalu ation. She also notes some BL lower back discomfort and occasional LLQ abdominal sharp discomfort bu t this only lasts seconds. She has had decreased appetite. Workup in the ED included T97.6, heart ra te 86, BP 131/89, respiratory rate 16, 98% on room air with most recent repeat vital signs T98.1, he art rate 75, BP 137/67, respiratory rate 16, 99% on room air, CBC with WBC 4.0, hemoglobin 12.8, MCV 98.2, platelet 155 without marked shift, BMP with BUN/creatinine 19/0.94, GFR 62, initial troponin 4 with repeat delta 5, urinalysis with specific remedy 1.020, urine protein 15, occult blood 10, neg ative nitrite, leukocyte Estrace 500 with urine WBCs 10-25 with 1+ urine bacteria, urine culture pen ding per ED, SARS COVID/influenza/RSV PCR negative, chest x-ray with chronic COPD type changes other acuna no acute cardiopulmonary findings, CT brain with chronic involutional and ischemic changes of t he brain with no acute intracranial findings otherwise, EKG with SR with non-specific changes simila r to prior. In the ED patient ministered 1 L normal saline as well as Rocephin 1 g IV x 1. PFSH Medical History (Updated 08/08/23 @ 19:[address] Jennifer Jackson MD) BPV (benign positional vertigo) Chronic idiopathic thrombocytopenia Chronic neutropenia CKD (chronic kidney disease), stage II Home Medications omega-3 fatty acids 1,000 mg capsule 1,000 mg PO DAILY SUPPLEMENT 07/29/18 [History Last Taken 08/08/23] ibuprofen 600 mg tablet 600 mg PO Q8H PRN musculoskeletal pain 04/23/23 [History Last Taken Unknown] Allergy/AdvReac Type Severity Reaction Status Date / Time No Known Allergies Allergy Verified 08/08/23 13:58 Family History (Updated 08/08/23 @ 19:[address] Jennifer Jackson MD) Mother Cancer Heart disease Heart failure Hypertension Father Pulmonary fibrosis Surgical History Hx of cholecystectomy Social History (Updated 08/08/23 @ 19:[address] Jennifer Jackson MD) household members: spouse Smoking Status: Never smoker alcohol intake: never substance use type: does not use ROS ROS Narrative Admission Review of Systems: CONSTITUTIONAL: No weight loss, fever, chills, + weakness or fatigue. HEENT: + Generalized mild headache. Eyes: No visual loss, blurred vision, double vision or yellow sclerae. Ears, Nose, Throat: No hearing loss, sneezing, congestion, runny nose or sore throat. SKIN: No rash or itching, lesions, wounds. CARDIOVASCULAR: + Syncopal event. No chest pain, chest pressure or chest discomfort, palpitations, edema, orthopnea. RESPIRATORY: No shortness of breath, cough or sputum, wheezing, hemoptysis. GASTROINTESTINAL: + anorexia, very transient intermittent left lower quadrant abdominal pain. No nausea, vomiting or diarrhea, melena, BRBPR. GENITOURINARY: + dysuria, frequency, bilateral lumbar back discomfort. No urgency or retention. NEUROLOGICAL: + Syncopal event with no prodrome, Occasional mild generalized headache. No paralysis, ataxia, numbness or tingling in the extremities, focal weakness, change in bowel or bladder control, seizure. MUSCULOSKELETAL: + muscle, back pain, joint pain or stiffness. HEMATOLOGIC: No anemia. Easy bleeding/bruising. LYMPHATICS: No enlarged nodes. No history of splenectomy. PSYCHIATRIC: No history of depression or anxiety. ENDOCRINOLOGIC: No reports of sweating, cold or heat intolerance. No polyuria or polydipsia. ALLERGIES: No history of asthma, hives, eczema or rhinitis. Vital Signs Vital Signs Vital Signs: 08/08/23 13:58 08/08/23 14:12 08/08/23 15:58 Temperature 97.6 F L Temperature Source Temporal Pulse Rate 89 68 Respira (more content not included)... Normal [facility] Hematocrit Auto (Bld) [Volum e fraction]Ordered By: Roula Dominguez on 08-08-2023 Hematocrit (Bld) [Volume fraction] 37.6 % 37-47 [facility] Immature granulocytes/100 WB C Auto (Bld)Ordered By: Roula Dominguez on 08-08-2023 Immature granulocytes/100 WBC (Bld) 0.500 % 0.0-0.9 [facility] Comment on above: IG% - Immature Granu locytes (promyelocytes, myelocytes and metamyelocytes) > 1% indicates that a LEFT SHIFT is Present. Ketones Test strip Ql (U)Ord ered By: Roula Dominguez on 08-08-2023 Ketones Ql (U) Negative Negative [facility] L501.4020on 08-08-2023 TROPONIN-I HS 5 pg/mL Normal 3.0-54.0 [facility] Comment on above: Order Comment: 'TROP ' Serial specimen #1, #2 or #3: 3 Result Comment: Pleholger hunter Note: New Test Units and Gender Specific Reference Ranges. For more information see Policy Stat Procedure Jamison High Sensitivity Troponin (TNIH) and attachments. Performed By: #### L 100.0100, L500.2500 #### [facility] [address] [place], [address] TROPONIN-I HS 5 pg/mL Normal 3.0-54.0 [facility] Comment on above: Result Comment: Pleholger hunter Note: New Test Units and Gender Specific Reference Ranges. For more information see Policy Stat Procedure Jamison High Sensitivity Troponin (TNIH) and attachments. Performed By: #### L 100.0100, L500.2500 #### [facility] [address] [place], [address] L501.5425on 08-08-2023 TROPONIN-I HS 4 pg/mL Normal 3.0-54.0 [facility] Comment on above: Order Comment: 1Y Result Comment: Pleholger se Note: New Test Units and Gender Specific Reference Ranges. For more information see Policy Stat Procedure Jamison High Sensitivity Troponin (TNIH) and attachments. Performed By: #### L 100.0100, L500.2500 #### [facility] [address] [place], [address] Laboratory - Chemistry and C hemistry - challengeOrdered By: Jennifer Jackson on 08-08-2023 Magnesium [Mass/Vol] 2.0 mg/dL 1.6-2.6 [facility] Laboratory - Chemistry and C hemistry - challengeOrdered By: Roula Dominguez on 08-08-2023 CO2 [Moles/Vol] 29.0 mmol/L 21.0-32.0 [facility] Urea nitrogen/Creatinine [Mass ratio] 20.2 mg/mg 10-20 [facility] - Hematology and Cell countsOrdered By: Roula Dominguez on 08-08-2023 MCH (RBC) [Entitic mass] 33.4 pg 27.0-32.0 [facility] MCHC (RBC) [Mass/Vol] 34.0 g/dL 32-36 [facility] Nucleated RBC/100 WBC (Bld) [Ratio] 0 % 0-5 [facility] Platelet mean volume (Bld) [Entitic vol] 8.7 fL 6.2-12.0 [facility] Platelets (Bld) [#/Vol] 155 10*3/uL 150-450 [facility] - Microbiology an d Antimicrobial susceptibilityOrdered By: Roula Dominguez on 08-08-2023 SARS-CoV-2 (COVID-19) RNA VIKKI+probe Ql (Unsp spec) [facility] M100.678on 08-08-2023 M100.678 SARS-CoV-2 (COVID 19 ) Negative INFLUENZA A Negative INFLUENZA B Negative RSV PCR Negative Normal [facility] Comment on above: Performed By: #### L 9100.0200 #### [facility] [address] [place], [place], [address] Magnesiumon 08-08-2023 Magnesium [Mass/Vol] 2.0 mg/dL Normal 1.6-2.6 [facility] Comment on above: Order Comment: Comme nts: may add to ED labs Performed By: #### L 100.0100, L500.2500 #### [facility] [address] [place], [address] Mucus LM Ql (Urine sed)Order ed By: Roula Dominguez on 08-08-2023 Mucus Ql (Urine sed) 0 SEEN /hpf [facility] Nitrite Test strip Ql (U)Ord ered By: Roula Dominguez on 08-08-2023 Nitrite Ql (U) Negative Negative [facility] No Panel InformationOrdered By: Roula Dominguez on 08-08-2023 Troponin I High Sensitivity 5 pg/mL 3.0-54.0 [facility] Comment on above: Please Note: New [place] t Units and Gender Specific Reference Ranges. For more information see Policy Stat Procedure Jamison High Sensitivity Troponin (TNIH) and attachments. Urine RBC 0 SEEN /hpf 0-5 [facility] Estimated Creatinine Clearance Calc 42.15 ml/min [facility] Estimated GFR (MDRD) Amer 75 mL/min >60 [facility] Comment on above: GFR Calc Estimated GFR (MDRD) Non-Af Amer 62 mL/min >60 [facility] Comment on above: Non- GFR Calc Protein Test strip Ql (U)Ord ered By: Roula Dominguez on 08-08-2023 Protein Ql (U) 15 mg/dl Negative [facility] RBC Auto (Bld) [#/Vol]Ordere d By: Roula Dominguez on 08-08-2023 RBC (Bld) [#/Vol] 3.83 10*6/uL 4.2-5.4 [facility] Serum or plasma calcium fide urement (mass/volume)Ordered By: Roula Dominguez on 08-08-2023 Calcium [Mass/Vol] 8.6 mg/dL 8.5-10.1 [facility] Serum or plasma creatinine m easurement (mass/volume)Ordered By: Roula Dominguez on 08-08-2023 Creatinine [Mass/Vol] 0.94 mg/dL 0.55-1.02 [facility] Comment on above: The validity of the calculated GFR & GFRAA in patients over 70 years has not been determined. Clinical correlation is essential. Serum or plasma urea nitroge n measurement (mass/volume)Ordered By: Roula Dominguez on 08-08-2023 Urea nitrogen [Mass/Vol] 19 mg/dL 7-18 [facility] Squamous epithelial cells de tection in urine sediment by light microscopyOrdered By: Roula Dominguez on 08-08-2023 Epithelial cells.squamous LM Ql (Urine sed) 0 SEEN /hpf 5-10 [facility] Thin prep Papanicolaou smear with manual screeningOrdered By: Roula Dominguez on 08-08-2023 Thin prep Papanicolaou smear with manual screening 4 5-15 [facility] Urinalysis, Completeon 08-07 BACTERIA 1+ /hpf Normal None Seen [facility] Comment on above: Order Comment: CLEAN CATCH Performed By: #### L 100.0100, L500.2500 #### [facility] [address] [place], [address] WBC 10-25 SEEN Normal 0-5 [facility] Comment on above: Order Comment: CLEAN CATCH Performed By: #### L 100.0100, L500.2500 #### [facility] [address] [place], [address] EPI,SQUAMOUS 0 SEEN Normal 5-10 [facility] Comment on above: Order Comment: CLEAN CATCH Performed By: #### L 100.0100, L500.2500 #### [facility] [address] [place], [address] Mucus Ql (Urine sed) 0 SEEN Normal [facility] Comment on above: Order Comment: CLEAN CATCH Performed By: #### L 100.0100, L500.2500 #### [facility] [address] [place], [address] RBC 0 SEEN Normal 0-5 [facility] Comment on above: Order Comment: CLEAN CATCH Performed By: #### L 100.0100, L500.2500 #### [facility] [address] [place], [address] Urine blood detectionOrdered By: Roula Dominguez on 08-08-2023 RBC Ql (U) 10 /ul Negative [facility] Urine clarityOrdered By: Ze Dominguez on 08-08-2023 Clarity (U) Clear Clear [facility] Urine color determinationOrd ered By: Roula Dominguez on 08-08-2023 Color (U) Yellow Yellow [facility] Urine glucose detectionOrder ed By: Roula Dominguez on 08-08-2023 Glucose Ql (U) Normal mg/dl Normal [facility] Urine leukocyte esterase det ection by dipstickOrdered By: Roula Dominguez on 08-08-2023 Leukocyte esterase Test strip Ql (U) 500 /ul Negative [facility] Urine pHOrdered By: Roula meraz on 08-08-2023 pH (U) 6.0 [pH] 5.0 - 8.0 [facility] Urine sediment bacteria coun t by microscopy (number/high power field)Ordered By: Roula Dominguez on 08-08-2023 Bacteria LM.HPF (Urine sed) [#/Area] 1 /[HPF] None Seen [facility] Urine specific gravity measu rementOrdered By: Roula Dominguez on 08-08-2023 Specific gravity (U) [Rel density] 1.020 1.002-1.030 [facility] Urine urobilinogen measureme ntOrdered By: Roula Dominguez on 08-08-2023 Urobilinogen Ql (U) Normal mg/dl Normal [facility] Absolute lymphocyte counton 08-22-2021 Lymphocytes Auto (Unsp spec) [#/Vol] 1.12 10*3/uL 0.83-4.51 [facility] Work Phone: Basophil percentageon 2021 Basophils/100 WBC (Bld) 0.3 % 0-1 [facility] Work Phone: Bilirubin [Mass/Vol] 0.40 mg/dL 0.20-1.00 [facility] Work Phone: Comment on above: For patients on eltr ombopag therapy, use of Dimension Jamison TBIL is not recommended. Chloride [Moles/Vol] 107 mmol/L 98-107 [facility] Work Phone: Eosinophils/100 WBC (Bld) 1.5 % 0-5 [facility] Work Phone: Glucose [Mass/Vol] 89 mg/dL 74-106 [facility] Work Phone: Neutrophils (Bld) [#/Vol] 2.0 10*3/uL 2.0-7.7 [facility] Work Phone: Neutrophils/100 WBC (Bld) 58.5 % 47-70 [facility] Work Phone: Potassium [Moles/Vol] 4.6 mmol/L 3.5-5.1 [facility] Work Phone: Protein [Mass/Vol] 7.0 g/dL 6.4-8.2 [facility]: Sodium [Moles/Vol] 142 mmol/L 136-145 [facility] Work Phone: WBC (Bld) [#/Vol] 3.4 10*3/uL 4.4-11.0 [facility] Work Phone: Blood erythrocytes count (nu mber/volume)on 08-22-2021 RBC (Bld) [#/Vol] 3.93 10*6/uL 4.2-5.4 [facility]: Blood hemoglobin measurement (mass/volume)on 08-22-2021 Hemoglobin (Bld) [Mass/Vol] 12.4 g/dL 12.0-15.0 [facility] Work Phone: Blood lymphocytes/100 leukoc yteson 08-22-2021 Lymphocytes/100 WBC (Bld) 33.4 % 19-41 [facility] Work Phone: Blood monocytes/100 leukocyt eson 08-22-2021 Monocytes/100 WBC (Bld) 6.0 % 0-10 [facility] Work Phone: Blood platelet mean volumeon 08-22-2021 Platelet mean volume (Bld) [Entitic vol] 8.7 fL 6.2-12.0 [facility] Work Phone: Determination of erythrocyte mean corpuscular volume (MCV)on 08-22-2021 MCV (RBC) [Entitic vol] 100.3 fL 81-99 [facility] Work Phone: Hematocrit Auto (Bld) [Volum e fraction]on 08-22-2021 Hematocrit (Bld) [Volume fraction] 39.4 % 37-47 [facility] Work Phone: Laboratory - Chemistry and C hemistry - challengeon 08-22-2021 ALP [Catalytic activity/Vol] 61 U/L 45-117 [facility] Work Phone: ALT [Catalytic activity/Vol] 21 U/L 13-56 [facility] Work Phone: CO2 [Moles/Vol] 30.0 mmol/L 21.0-32.0 [facility] Work Phone: Globulin (S) [Mass/Vol] 3.5 g/dL 2.2-4.2 [facility] Work Phone: Urea nitrogen/Creatinine [Mass ratio] 27.1 mg/mg 10-20 [facility] Work Phone: Laboratory - Hematology and Cell countson 08-22-2021 Erythrocyte distribution width (RBC) [Entitic vol] 46.9 fL 35.1-43.9 [facility] Work Phone: Erythrocyte distribution width (RBC) [Ratio] 12.6 % 11.6-14.6 [facility] Work Phone: Immature granulocytes/100 WBC (Bld) 0.300 % 0.0-0.9 [facility] Work Phone: Comment on above: IG% - Immature Granu locytes (promyelocytes, myelocytes and metamyelocytes) > 1% indicates that a LEFT SHIFT is Present. MCH (RBC) [Entitic mass] 31.6 pg 27.0-32.0 [facility] Work Phone: Nucleated RBC/100 WBC (Bld) [Ratio] 0 % 0-5 [facility] Work Phone: MCHC Auto (RBC) [Mass/Vol]on 08-22-2021 MCHC (RBC) [Mass/Vol] 31.5 g/dL 32-36 [facility] Work Phone: No Panel Informationon 05-16 -2022 Estimated GFR (MDRD) Amer 89 mL/min >60 [facility] Work Phone: Comment on above: GFR Calc Estimated GFR (MDRD) Non-Af Amer 74 mL/min >60 [facility] Work Phone: Comment on above: Non- GFR Calc Thyroid Stimulating Hormone (TSH) 2.33 uIU/mL 0.358-3.74 [facility] Work Phone: Platelets bldon 08-22-2021 Platelets (Bld) [#/Vol] 178 10*3/uL 150-450 [facility] Work Phone: Serum or plasma albumin fide urement (mass/volume)on 08-22-2021 Albumin [Mass/Vol] 3.5 g/dL 3.2-5.0 [facility] Work Phone: Serum or plasma albumin/glob ulin mass ratioon 08-22-2021 Albumin/Globulin [Mass ratio] 1.0 {ratio} 0.9-2.4 [facility] Work Phone: Serum or plasma calcium fide urement (mass/volume)on 08-22-2021 Calcium [Mass/Vol] 9.2 mg/dL 8.5-10.1 [facility] Work Phone: Serum or plasma creatinine m easurement (mass/volume)on 08-22-2021 Creatinine [Mass/Vol] 0.81 mg/dL 0.55-1.02 [facility] Work Phone: Comment on above: The validity of the calculated GFR & GFRAA in patients over 70 years has not been determined. Clinical correlation is essential. Serum or plasma urea nitroge n measurement (mass/volume)on 08-22-2021 Urea nitrogen [Mass/Vol] 22 mg/dL 7-18 [facility] Work Phone: Thin prep Papanicolaou smear with manual screeningon 08-22-2021 Thin prep Papanicolaou smear with manual screening 13 U/L 15-37 [facility] Work Phone: Thin prep Papanicolaou smear with manual screening 5 5-15 [facility] Work Phone: Final Surgical Pathology Rep lucia 04-19-2018 Final Surgical Pathology Report . Pathology ReportsAccession: Collected Date/Time: Received Date/Time: Pathologist:[id number] 2 04/18/2018 14:22 EST 04/18/2018 14:22 EST MELINA MARI MD Final Surgical Pathology ReportDIAGNOSIS:ESOPHAGU S, BIOPSIES -- MILD REFLUX ESOPHAGITIS AND GASTRIC MUCOSA WITH MODERATE ACUTE AND CHRONIC INFLAMMATION. NO OBRIEN'S OR DYSPLASIA.COMMENT:[facility] [id number] INFORMATION:DYSPHAGIASPE CIMEN:A ESOPH, BX- GE JUNCTIONGROSS DESCRIPTION:Received in formalin labeled A are several fernandez glistening soft tissues ranging from 0.2-0.5 cm. TS -1Dictated by Mony LAFLEUR ([facility])MICROSCOPIC DESCRIPTION:Slides reviewed.Electronically Signed byPathology [facility] MELINA Thomas out Date: 04/19/2018 14:23Performing Lab: [facility], [address] [place] [address] ([place]) Comment on above: Performed By: #### S PFR ####[place] [id number] Vital Signs Date Time Vital Sign Value Performing Clinician Facility 01-08-2024 13:44-0400 Body temperature 97.11 [degF] Krislyn Aberegg PA Work Phone: [facility] 01-08-2024 13:44-0400 Body weight 56 kg Krislyn Aberegg PA Work Phone: [facility] 01-08-2024 13:44-0400 Diastolic blood pressure 74 mm[Hg] Krislyn Aberegg PA Work Phone: [facility] 01-08-2024 13:44-0400 Heart rate 63 /min Krislyn Aberegg PA Work Phone: [facility] 01-08-2024 13:44-0400 Respiratory rate 18 /min Krislyn Aberegg PA Work Phone: [facility] 01-08-2024 13:44-0400 SaO2% (BldA) [Mass fraction] 99 % Peterchrissy liliam PA Work Phone: [facility] 01-08-2024 13:44-0400 Systolic blood pressure 138 mm[Hg] Robnathalychrissy Mcintyre PA Work Phone: [facility] 08-11-2023 07:57-0400 Body temperature 98.3 [degF] Dr. Manuel Joy Work Phone: [facility] 08-11-2023 07:57-0400 Diastolic blood pressure 51 mm[Hg] Dr. Manuel Joy Work Phone: [facility] 08-11-2023 07:57-0400 Heart rate 55 /min Dr. Manuel Joy Work Phone: [facility] 08-11-2023 07:57-0400 Respiratory rate 16 /min Dr. Manuel Joy Work Phone: [facility] 08-11-2023 07:57-0400 SaO2% (BldA) [Mass fraction] 94 % Dr. Manuel Joy Work Phone: [facility] 08-11-2023 07:57-0400 Systolic blood pressure 101 mm[Hg] Dr. Manuel Joy Work Phone: [facility] 08-11-2023 03:56-0400 Body mass index (BMI) [Ratio] 19.5 kg/m2 Dr. Manuel Joy Work Phone: [facility] 08-11-2023 03:56-0400 Body weight [address] Manuel Joy Work Phone: [facility] 08-09-2023 16:08-0400 Body height 167.[address] Manuel Joy Work Phone: [facility] 08-08-2023 19:00-0400 Body temperature 98.1 [degF] Dr. Manuel Joy Work Phone: [facility] 08-08-2023 19:00-0400 Diastolic blood pressure 67 mm[Hg] Dr. Manuel Joy Work Phone: [facility] 08-08-2023 19:00-0400 Heart rate 75 /min Dr. Manuel Joy Work Phone: [facility] 08-08-2023 19:00-0400 Respiratory rate 16 /min Dr. Manuel Joy Work Phone: [facility] 08-08-2023 19:00-0400 SaO2% (BldA) [Mass fraction] 99 % Dr. Manuel Joy Work Phone: [facility] 08-08-2023 19:00-0400 Systolic blood pressure 137 mm[Hg] Dr. Manuel Joy Work Phone: [facility] 08-08-2023 13:58-0400 Body height 160.[address] Manuel Joy Work Phone: [facility] 08-08-2023 13:58-0400 Body mass index (BMI) [Ratio] 19.8 kg/m2 Dr. Manuel Joy Work Phone: [facility] 08-08-2023 13:58-0400 Body weight 50.[address] Manuel Joy Work Phone: [facility] 04-23-2023 14:47-0500 Body mass index (BMI) [Ratio] 20.5 kg/m2 Dr. Manuel Joy Work Phone: [facility] 04-23-2023 14:47-0500 Body temperature 98.2 [degF] Dr. Manuel Joy Work Phone: [facility] 04-23-2023 14:47-0500 Body weight 51.[address] Manuel Joy Work Phone: [facility] 04-23-2023 14:47-0500 Diastolic blood pressure 70 mm[Hg] Dr. Manuel Joy Work Phone: [facility] 04-23-2023 14:47-0500 Heart rate 70 /min Dr. Manuel Joy Work Phone: [facility] 04-23-2023 14:47-0500 Respiratory rate 16 /min Dr. Manuel Joy Work Phone: [facility] 04-23-2023 14:47-0500 SaO2% (BldA) [Mass fraction] 98 % Dr. Manuel Joy Work Phone: [facility] 04-23-2023 14:47-0500 Systolic blood pressure 130 mm[Hg] Dr. Manuel Joy Work Phone: [facility] 08-22-2021 08:31-0400 Body height 158.[address] Manuel Joy Work Phone: [facility] Work Phone: 08-22-2021 08:31-0400 Body mass index (BMI) [Ratio] 20.5 kg/m2 Dr. Manuel Joy Work Phone: [facility] Work Phone: 08-22-2021 08:31-0400 Body temperature 97.9 [degF] Dr. Manuel Joy Work Phone: [facility] Work Phone: 08-22-2021 08:31-0400 Body weight 51.[address] Manuel Joy Work Phone: [facility] Work Phone: 08-22-2021 08:31-0400 Diastolic blood pressure 68 mm[Hg] Dr. Manuel Joy Work Phone: [facility] Work Phone: 08-22-2021 08:31-0400 Heart rate 61 /min Dr. Manuel Joy Work Phone: [facility] Work Phone: 08-22-2021 08:31-0400 Respiratory rate 14 /min Dr. Manuel Joy Work Phone: [facility] Work Phone: 08-22-2021 08:31-0400 SaO2% (BldA) [Mass fraction] 99 % Dr. Manuel Joy Work Phone: [facility] Work Phone: 08-22-2021 08:31-0400 Systolic blood pressure 128 mm[Hg] Dr. Manuel Joy Work Phone: [facility] Work Phone: Encounters Encounter Date Encounter Type Care Provider Facility Start: 07-03-2024 End: 07-03-2024 ambulatory Manuel Joy Facility:[facility] Start: 06-06-2024 End: 06-06-2024 Emergency department patient visit Manuel Joy Facility:[facility] Start: 03-13-2024 End: 03-13-2024 Emergency department patient visit Manuel Joy Facility:[facility] Start: 01-18-2024 End: 01-18-2024 ambulatory Chio Bowen [facility] Facility:[facility] Start: 01-15-2024 End: 01-15-2024 ambulatory Manuel Joy Facility:[facility] Start: 01-15-2024 End: 01-15-2024 ambulatory Chio Bowen [facility] Facility:[facility] Start: 01-09-2024 End: 01-09-2024 Telephone encounter Trae LAFLEUR Work Phone: [facility] Comment on above: Results Start: 01-08-2024 End: 01-08-2024 ambulatory Facility:[facility] Start: 01-08-2024 End: 01-08-2024 Patient encounter procedure Trae LAFLEUR Work Phone: [facility] Comment on above: Urinary frequency (P rimary Dx) Start: 10-02-2023 End: 10-02-2023 ambulatory Manuel Waldenner Facility:[facility] Start: 09-20-2023 End: 09-20-2023 ambulatory Manuel Jeimy Facility:[facility] Start: 09-12-2023 ambulatory [facility] Facility :[facility] Start: 08-22-2023 End: 08-22[facility]: 08-21-2023 End: 08-21-2023 [facility] Start: 08-15-2023 End: 08-15-2023 ambulatory Manueldevan SifuentesJeimy Facility:[facility] Start: 08-15-2023 End: 08-15-[facility] Start: 08-11-2023 Non-patient / Non-visit Dr. Melinda Joy Work Phone: [facility] Work Phone: Start: 08-10-2023 ambulatory Manuel Joy Facility :[facility] Start: 08-10-2023 Non-patient / Non-visit Dr. Melinda Joy Work Phone: [facility] Start: 08-10-2023 Non-patient / Non-visit Dr. Melinda Joy Work Phone: [facility] Work Phone: Start: 08-09-2023 Non-patient / Non-visit Dr. Melinda Joy Work Phone: [facility] Work Phone: Start: 08-09-2023 ambulatory Manuel Joy Facility :[facility] Start: 08-08-2023 ambulatory Jennifer Jackson Facility :[facility] Start: 08-08-2023 End: 08-11-2023 Evaluation and management of inpatient Dr. Manuel Joy Work Phone: [facility] Work Phone: Start: 04-23-2023 End: 04-23-[address] Manuel Joy Work Phone: [facility] Work Phone: Start: 08-29-2021 End: 08-29-[address] Manuel Joy Work Phone: [facility]Cat [facility], [facility] Start: 08-22-2021 End: 08-22-[address] Manuel Joy Work Phone: [facility]Laboratory, [facility] Start: 08-22-2021 End: 08-22-[address] Manuel Joy Work Phone: [facility] Procedures Date Procedure Procedure Detail Performing Clinician Start: 01-08-2024 Urnls dip stick/tabl et rgnt auto w/o microscopy Trae LAFLEUR Work Phone: Start: 08-21-2023 Urinalysis MANUELDEVAN SIFUENTES HNER Comment on above: Result Comment: URIN ALYSIS Performed By: #### [id number] #### [facility],[address] [place] [address] Start: 08-08-2023 Plain chest X-ray Dr. Ana Joy Work Phone: Start: 08-08-2023 CT of head without contrast Dr. Manuel Joy Work Phone: Start: 08-08-2023 SARS-CoV-2, Influenz a & RSV (PCR) Dr. Manuel Joy Work Phone: Start: 08-08-[address] Manuel Joy Work Phone: Start: 08-29-2021 Computed tomography of abdomen and pelvis with contrast Dr. Manuel Joy Work Phone: Start: 05-25-2014 Colonoscopy Trae LAFLEUR Work Phone: Plan of Treatment Date Care Activity Detail Author Start: 01-01-2030 Urine microalbumin profile DTaP,Tdap,Td Vaccine (2 - Td or Tdap) [facility] Start: 2024 RSV Vaccine (1 - 1-d ose 75+ series) RSV Vaccine (1 - 1-dose 75+ series) [facility] Start: 05-25-2024 Screening for malign ant neoplasm of colon [facility] Start: 12-09-2023 Covid-19 Vaccine () Covid-19 Vaccine () [facility] Start: 12-09-2023 Influenza vaccination Influenza Vacc ine (#1) [facility] Start: 08-11-2023 Patient discharge [facility] Start: 08-08-2023 Following clinical pathway protocol [facility] Start: 08-08-2023 Assessment of risk o f venous thromboembolism [facility] Start: 08-08-2023 Cardiac monitoring [facility] Start: 08-08-2023 Fall prevention [facility] Start: 08-08-2023 Inhalation therapy procedure [facility] Start: 08-08-2023 Insertion of cathete r into peripheral vein [facility] Start: 08-08-2023 Introduction of urin kristian catheter [facility] Start: 08-08-2023 Measuring intake and output [facility] Start: 08-08-2023 Providing care accor ding to standard [facility] Start: 08-08-2023 Provision of activit y privileges [facility] Start: 08-08-2023 Referral to occupati onal therapist [facility] Start: 08-08-2023 Referral to service [facility] Start: 08-08-2023 [facility] Start: 08-08-2023 Verification routine [facility] Start: 08-08-2023 Admission procedure [facility] Start: 08-08-2023 Hospital admission, emergency, from emergency room, medical nature [facility] Start: 08-08-2023 [facility] Start: 08-08-2023 Bacteria identified in Urine by Culture [facility] Start: 04-09-2023 Advance Directive Discussion Advance Directive Discussion [facility] Start: 01-01-2021 Pneumococcal Vaccine : 65+ (2 of 2 - PCV) Pneumococcal Vaccine: 65+ (2 of 2 - PCV) [facility] Start: 05-04-2017 Diabetes Screening Diabetes Screenin g [facility] Start: 2014 Screening for osteoporosis Bone Density Screening [facility] Start: 01-20-2014 Screening for malign ant neoplasm of breast Mammogram Screening [facility] Start: 01-19-2014 Screening for malign ant neoplasm of colon Fecal Occult Blood [facility] Start: 06-25-1999 Shingrix Vaccine (1 of 2) Villalba grix Vaccine (1 of 2) [facility] Start: 1994 Lipid panel Lipid Screening [facility] Start: 1994 Screening for malign ant neoplasm of colon [facility] Start: 06-25-1967 Anxiety Screening Anxiety Screening [facility] Start: 06-25-1967 Depression Screening Depression Scre ening [facility] Start: 06-25-1967 Hepatitis C screening Hepatitis C [facility] Bacteria identified in Urine by Culture URINE CULTURE Microbiology Routine Urinary frequency Ordered: 01/08/2024 [facility] Work Phone: Comment on above: Ordered: 01/08/2024 CBC W Auto Different ial panel - Blood [facility] Lipid 1996 panel - S chuckie or Plasma [facility] Patient referral [facility] Work Phone: Thyroid stimulating hormone measurement [facility] Vitamin D, 25-hydrox y measurement [facility] Immunizations Immunization Date Immunization Notes Care Provider Fa cility 03-08-2020 influenza virus vacc ine, unspecified formulation Trae LAFLEUR Work Phone: [facility] Payers Date Payer Category Payer Self-pay [id number] 2023 Medicare [id number] 2014 Private Health Insurance HUMANA HUMANA MEDICARE SUPPLEMENT [id number] 2014-Present [phone] [address] [address] [place] [address] Indemnity [id number] 2014 Private Health Insurance [id number] 1950 Unknown [id number] .2.651 1950 Unknown [id number] 2.16.840.1.960527.3.579 .2.651 Unknown [id number] 2.16.840.1.456621.3.579 .2.462 Unknown [id number] 2.16.840.1.926593.3.579 .2.462 Unknown [id number] 2.16.840.1.088406.3.579 .2.462 Unknown [id number] 2.16.840.1.332621.3.579 .2.462 Unknown [id number] 2.16.840.1.422603.3.579 .2.462 Unknown [id number] 2.16.840.1.636154.3.579 .2.462 Unknown [id number] 2.16.840.1.853411.3.579 .2.462 Unknown [id number] 2.16.840.1.672984.3.579 .2.462 Unknown [id number] 2.16.840.1.885844.3.579 .2.462 Unknown [id number] 2.16.840.1.193964.3.579 .2.462 Unknown [id number] 2.16.840.1.994554.3.579 .2.462 Unknown [id number] 2.16.840.1.618163.3.579 .2.462 Unknown [id number] 2.16.840.1.491013.3.579 .2.462 Unknown [id number] 2.16.840.1.565509.3.579 .2.462 Unknown [id number] 2.16.840.1.015592.3.579 .2.462 Unknown [id number] 2..840.1.108007.3.579 .2.462 Unknown [id number] 2..840.1.869252.3.579 .2.462 Unknown [id number] 2..840.1.939874.3.579 .2.462 Social History Date Type Detail Facility Start: 08-22-2021 End: 08-08-2023 Tobacco smoking status NHIS Unknown if ever smoked [facility] Start: 07-29-2018 None [facility] Start: 07-29-2018 Spouse/ Signif icant Other [facility] Start: 08-11-2018 Non-smoker [facility] Start: 1950 Sex Assigned At Female [facility] Start: 11-23-2011 Tobacco smoking stat us IDIS Never smoked tobacco [facility] Work Phone: Start: 11-23-2011 Tobacco use and exposure Smokeless tobacco non-user [facility] Start: 01-08-2024 Alcoholic beverage intake Current non-drinker of alcohol (finding) [facility] Start: 01-08-2024 History of Social function [facility] Start: 01-08-2024 Tobacco use panel [facility] Start: 1950 [facility] Goals Date Patient Goal Desired Activity /State Functional Status Date Assessment Result Facility 08-11-2023 Functional status Ambulates [facility] Work Phone: Mental Status Date Assessment Result Facility 08-11-2023 Cognitive function Voice/Name [facility] Work Phone: 08-08-2023 Cognitive function Level Of Cons ciousness Awake;Alert;Appropriate;Follow s Commands [facility] Work Phone: Clinical Notes 08-08-2023 to 01-09-2024 Telephone Encounter - Ileana Naqvi LPN - 01/09/2024 6:58 PM EDTTelephone Encounter - Ileana Naqvi LPN - 01/09/2024 6:58 PM Trae Adan PA - 01/08/2024 1:57 PM EDT Note Date & Type Note Facility 01-09-2024 Telephone encounter Note Daughter of patient notified.Ileana Naqvi LPN [facility] 01-09-2024 Miscellaneous Notes Daughter of patient notified.Ileana Naqvi LPN Urine culture has returned and is negative for bacterial growth. Please follow up with PCP for continued symptoms. Please advise. Gail, daughter calling for results of urine re: possible UTI. Please advise. Aydee Orozco LPN documented in this encounter [facility] 01-09-2024 Telephone encounter Note Urine culture has returned and is negative for bacterial growth. Please follow up with PCP for continued symptoms. Please advise. [facility] Work Phone: 01-09-2024 Telephone encounter Note Gail, daughter calling for results of urine re: possible UTI. Please advise. Aydee Orozco LPN [facility] 01-08-2024 Note HNO ID: [id number] Author: TRAE MCINTYRE PA Service: ? Author Type: Physician Health Science Instructor Type: Progress Notes Filed: 01/08/2024 13:59 Note Text: This note was created using Thinkspeedriter. Subjective Aimee Palm is a 73 year old female. HPI 73-year-old female presents for urinary urgency, frequency x 1 week. Patient states she has been urinating more frequently for the past week. She also has urgency and little bit of dysuria. No blood in the urine. No abdominal pain. She does have a little bit of low back pain. No flank pain. No fevers. Daughter states patient was hospitalized about 6 months ago for UTI. No other complaint. PAST MEDICAL HISTORY Diagnosis Date Backache, unspecified Calculus of gallbladder without mention of cholecystitis or obstruction Cholelithiasis Papanicolaou smear of cervix with atypical squamous cells cannot exclude high grade squamous intraepithelial lesion (ASC-H) 2008;2010 PM[facility] - PAST MEDICAL HISTORY OF Chronic cholecystitis PAST SURGICAL HISTORY Procedure Laterality Date COLONOSCOPY FLX DX W/COLLJ SPEC WHEN PFRMD 06/04/00 Colonoscopy COLONOSCOPY FLX DX W/COLLJ SPEC WHEN PFRMD 05/25/2014 Colonoscopy COLPOSCOPY CERVIX UPPER/ADJACENT VAGINA Colposcopy ESOPHAGOGASTRODUODENOSCOPY TRANSORAL DIAGNOSTIC 05/25/2014 EGD LAPAROSCOPY SURG CHOLECYSTECTOMY 1997 Cholecystectomy, lap LEEP PROCEDURE ([facility])_*[place] 04/07/09 LIG/TRNSXJ FLP TUBE ABDL/VAG APPR UNI/BI 1979 Tubal ligation ALLERGIES No Known Allergies MEDICATIONS CALCIUM CARBONATE/VITAMIN D3 (VITAMIN D-3 ORAL) Take by mouth once daily. VITAMIN E ORAL Take 1 capsule by mouth once daily. OTC NUTRITIONAL SUPPLEMENT vitamin d daily CALCIUM 500 MG TAB Take one(1) tablet twice daily. omega-3 fatty acids(FISH OIL 500 MG CAP) Take one(1) capsule daily. amoxicillin (POLYMOX, AMOXIL) 500 mg capsule Take 1 capsule by mouth twice daily. (Patient not taking: Reported on 01/08/2024) clarithromycin (BIAXIN) 500 mg tab Take 1 tablet by mouth every 12 hours. Take one (1) tablet twice a day. Take all of the prescription. (Patient not taking: Reported on 01/08/2024) Omeprazole (PRILOSEC) 40 mg capsule Take 1 capsule by mouth once daily. (Patient not taking: Reported on 01/08/2024) FAMILY HISTORY Problem Relation Age of Onset Cancer Mother ovarian Cancer Father prostate Diabetes Mother insulin later on Social History Tobacco Use Smoking status: Never Smokeless tobacco: Never Substance Use Topics Alcohol use: No Drug use: No Review of Systems Constitutional: Negative for chills and fever. HENT: Negative for congestion, ear pain and sore throat. Respiratory: Negative for cough and shortness of breath. Cardiovascular: Negative for chest pain. Gastrointestinal: Negative for diarrhea and vomiting. Genitourinary: Positive for dysuria, frequency and urgency. Negative for hematuria. Objective BP 138/74 Pulse 63 Temp 36.2 ?C (97.1 ?F) (Tympanic) Resp 18 Wt 56 kg (123 lb 7.3 oz) SpO2 99% Physical Exam Vitals and nursing note reviewed. Constitutional: General: She is not in acute distress. Appearance: Normal appearance. She is not toxic-appearing. HENT: Nose: Nose normal. Mouth/Throat: Mouth: Mucous membranes are moist. Eyes: Conjunctiva/sclera: Conjunctivae normal. Cardiovascular: Rate and Rhythm: Normal rate and regular rhythm. Pulmonary: Effort: Pulmonary effort is normal. Breath sounds: Normal breath sounds. Abdominal: General: Abdomen is flat. Palpations: Abdomen is soft. Tenderness: There is no abdominal tenderness. There is no right CVA tenderness, left CVA tenderness, guarding or rebound. Skin: General: Skin is warm and dry. Neurological: Mental Status: She is alert. Assessment and Plan ASSESSMENT/PLAN: 1. Urinary frequency - ICD9: 788.41, ICD10: R35.0 acute - UA normal - Send urine for culture - Patient education for prevention given - UA DIP, URINE (POC) - URINE CULTURE -Advised if symptoms persist and urine culture negative, needs follow-up with PCP Diagnosis and treatment plan were discussed and questions were answered to the patient's satisfaction. Pt acknowledged understanding of concepts and follow up plan. Specific signs and symptoms that would indicate the need for higher level of care were discussed in detail warranting prompt ER evaluation. CIARRA Mendez [facility] 01-08-2024 History of Presen t illness Narrative This note was created using NoteWriter. Subjective Aimee Palm is a 73 year old female. HPI 73-year-old female presents for urinary urgency, frequency x 1 week. Patient states she has been urinating more frequently for the past week. She also has urgency and little bit of dysuria. No blood in the urine. No abdominal pain. She does have a little bit of low back pain. No flank pain. No fevers. Daughter states patient was hospitalized about 6 months ago for UTI. No other complaint. PAST MEDICAL HISTORY Diagnosis Date Backache, unspecified Calculus of gallbladder without mention of cholecystitis or obstruction Cholelithiasis Papanicolaou smear of cervix with atypical squamous cells cannot exclude high grade squamous intraepithelial lesion (ASC-H) 2008;2010 PMH - PAST MEDICAL HISTORY OF Chronic cholecystitis PAST SURGICAL HISTORY Procedure Laterality Date COLONOSCOPY FLX DX W/COLLJ SPEC WHEN PFRMD 06/04/00 Colonoscopy COLONOSCOPY FLX DX W/COLLJ SPEC WHEN PFRMD 05/25/2014 Colonoscopy COLPOSCOPY CERVIX UPPER/ADJACENT VAGINA Colposcopy ESOPHAGOGASTRODUODENOSCOPY TRANSORAL DIAGNOSTIC 05/25/2014 EGD LAPAROSCOPY SURG CHOLECYSTECTOMY 1997 Cholecystectomy, lap LEEP PROCEDURE ([employer])_*FL 04/07/09 LIG/TRNSXJ FLP TUBE ABDL/VAG APPR UNI/BI 1979 Tubal ligation ALLERGIES No Known Allergies MEDICATIONS CALCIUM CARBONATE/VITAMIN D3 (VITAMIN D-3 ORAL) Take by mouth once daily. VITAMIN E ORAL Take 1 capsule by mouth once daily. OTC NUTRITIONAL SUPPLEMENT vitamin d daily CALCIUM 500 MG TAB Take one(1) tablet twice daily. omega-3 fatty acids(FISH OIL 500 MG CAP) Take one(1) capsule daily. amoxicillin (POLYMOX, AMOXIL) 500 mg capsule Take 1 capsule by mouth twice daily. (Patient not taking: Reported on 01/08/2024) clarithromycin (BIAXIN) 500 mg tab Take 1 tablet by mouth every 12 hours. Take one (1) tablet twice a day. Take all of the prescription. (Patient not taking: Reported on 01/08/2024) Omeprazole (PRILOSEC) 40 mg capsule Take 1 capsule by mouth once daily. (Patient not taking: Reported on 01/08/2024) FAMILY HISTORY Problem Relation Age of Onset Cancer Mother ovarian Cancer Father prostate Diabetes Mother insulin later on Social History Tobacco Use Smoking status: Never Smokeless tobacco: Never Substance Use Topics Alcohol use: No Drug use: No Review of Systems Constitutional: Negative for chills and fever. HENT: Negative for congestion, ear pain and sore throat. Respiratory: Negative for cough and shortness of breath. Cardiovascular: Negative for chest pain. Gastrointestinal: Negative for diarrhea and vomiting. Genitourinary: Positive for dysuria, frequency and urgency. Negative for hematuria. Objective BP 138/74 Pulse 63 Temp 36.2 C (97.1 F) (Tympanic) Resp 18 Wt 56 kg (123 lb 7.3 oz) SpO2 99% Physical Exam Vitals and nursing note reviewed. Constitutional: General: She is not in acute distress. Appearance: Normal appearance. She is not toxic-appearing. HENT: Nose: Nose normal. Mouth/Throat: Mouth: Mucous membranes are moist. Eyes: Conjunctiva/sclera: Conjunctivae normal. Cardiovascular: Rate and Rhythm: Normal rate and regular rhythm. Pulmonary: Effort: Pulmonary effort is normal. Breath sounds: Normal breath sounds. Abdominal: General: Abdomen is flat. Palpations: Abdomen is soft. Tenderness: There is no abdominal tenderness. There is no right CVA tenderness, left CVA tenderness, guarding or rebound. Skin: General: Skin is warm and dry. Neurological: Mental Status: She is alert. Assessment and Plan ASSESSMENT/PLAN: 1. Urinary frequency - ICD9: 788.41, ICD10: R35.0 acute - UA normal - Send urine for culture - Patient education for prevention given - UA DIP, URINE (POC) - URINE CULTURE -Advised if symptoms persist and urine culture negative, needs follow-up with PCP Diagnosis and treatment plan were discussed and questions were answered to the patient's satisfaction. Pt acknowledged understanding of concepts and follow up plan. Specific signs and symptoms that would indicate the need for higher level of care were discussed in detail warranting prompt ER evaluation. CIARRA Mendez documented in this encounter [facility] 08-11-2023 Discharge summary Note Date/Time August 11, 2023 7:41am [facility] Medical Records Department [address] [place] [address] Discharge Summary 08/11/23 0740 MR#: [id number] Acct: [id number] Name: AIMEE PALM Rep #:[id number] : 1950 73 From: Keny Hunter MD PCP: Dr. Manuel Joy MD Status:ADM IN Location: [facility] [id number] Providers Date of Admission: 08/08/23 Date of Discharge: 08/11/23 Primary Care Physician: Dr. Manuel Joy MD Reason For Visit: SYNCOPE,UTI Diagnosis Discharge Diagnosis (1) Syncope: Status: Acute Code(s): R55 - Syncope and collapse (2) UTI (urinary tract infection): Status: Acute Code(s): N39.0 - Urinary tract infection, site not specified Plan Patient is a 73-year-old lady admitted progressive generalized weakness and fatigue which was followed by a presyncopal episode. Her evaluation on admission was consistent with acute cystitis admitted to monitored bed for further management 1. PreSyncopal episode ? Do suspect orthostatic hypotension. Patient has been admitted to monitored bed management IV fluid continuous telemetry monitoring serial cardiac enzymes as well as echo ordered ?08/11/2023; 2D echo demonstrated normal LV size. Left ventricular systolic function is normal.The estimated ejection fraction is 60 %. Structurally normal valves. 2. Acute complicated cystitis ? Patient started on ceftriaxone urine culture sent we will follow-up on result ? 08/10/2023 urine cultures pending. Patient had a bout of emesis this a.m. treated symptomatically ? 08/11/2023 final culture did not exhibit any growth. Antibiotics discontinued on discharge 3. History of BPPV ? Stable 4. Chronic kidney disease stage II rule out 5. Physical deconditioning - Requested for PT OT eval and social sciences instructor to assist with discharge planning 6. DVT prophylaxis ? [facility] Time spent in the patient's overall evaluation,decision-making process, review of diagnostic data, adjustment of management, discussion with other providers, nursing nursing and ancillary staff involved in patient's care documentation, 35Minutes Medications at Discharge Home Medications omega-3 fatty acids 1,000 mg capsule 1,000 mg PO DAILY SUPPLEMENT 07/29/18 ibuprofen 600 mg tablet 600 mg PO Q8H PRN musculoskeletal pain 04/23/23 Physical Exam Narrative GENERAL: cooperative HEENT: Atraumatic; normocephalic EYES; Anicteric, Normal Conjunctiva NECK; supple, normal thyroid, RESPIRATORY: Diminished to auscultation CARDIOVASCULAR: Regular S1 S2, GI: soft, normoactive bowel sounds, : No Renal angle tenderness; EXTREMITIES: No edema, no clubbing, MUSCULOSKELETAL: no muscle wasting NEURO: Awake; no lateralizing signs. SKIN: No Rash PSYCH; Flat affect Weight / BMI Weight Weight: 55 kg Body Mass Index (BMI) 19.5 ABG / Lab / Microbiology Data 08/10/23 07:45 08/10/23 07:45 Laboratory: Laboratory Results - last 24 hr 08/10/23 07:45: WBC 3.5 L, RBC 3.39 L, Hgb 11.1 L, Hct 32.2 L, MCV 95.0, MCH 32.7 H, MCHC 34.5, RDW Std Deviation 42.1, RDW Coeff of Petros 12.3, Plt Count 130 L, MPV 8.6, Immature Gran % (Auto) 0.000, Neut % (Auto) 75.9 H, Lymph % (Auto) 19.5, Kinney % (Auto) 4.0, Eos % (Auto) 0.3, Baso % (Auto) 0.3, Absolute Neuts (auto) 2.7, Absolute Lymphs (auto) 0.68 L, Nucleated RBC % 0, Sodium 135 L, Potassium 3.6, Chloride 104, Carbon Dioxide 22.0, Anion Gap 9, BUN 14, Creatinine 0.84, Estim Creat Clear Calc 50.09, Est GFR (MDRD) Af Amer 85, Est GFR (MDRD) Non-Af 70, BUN/Creatinine Ratio 16.7, Glucose 185 H, Calcium 8.5, Phosphorus 2.8, Magnesium 1.9 Microbiology: Microbiology 08/08/23 16:50 Urine, Clean Catch Urine Culture - Final Culture exhibits no growth. 08/08/23 15:40 Mucosa - Nose SARS-CoV-2, Influenza & RSV (PCR) - Final Radiography Diagnostic Testing: Radiology Impression Echocardiogram 08/10/23 10:21 Interpretation Summary Normal LV size. Left ventricular systolic function is normal. The estimated ejection fraction is 60 %. Structurally normal valves. Ordering Physician: Keny Hunter Referring Physician: Jennifer Jackson Performed By: Suzanne Meza RCS D/C Instructions Discharge Diet: No restrictions Discharge Activity: Return to Normal Activity Call your doctor if you observe: Fever of 101 or Higher, Shortness of breath, Fainting spells and Chest pain Meaningful Use Info Meaningful Use Meaningful Use Diagnoses (Choose all that apply): None applicable Ischemic Stroke Statin Dosing Therapy Reference: STATIN DOSE THERAPY REFERENCE: * Patients > 75 years receive moderate or high dose statin therapy. * Patients 75 years or YOUNGER should receive HIGH intensity statin dose unless contraindicated. You will be required to document reason for non-treatment if statin daily dose does not meet guidelines. HIGH DOSE STATIN THERAPY DAILY Atorvastatin > than or = to 40 mg Rosuvastatin > than or = to 20 mg Amlodipine + Atorvastatin > than or = to 2.5/40 mg Ezetimibe + Simvastatin 10/80 mg Simvastatin 80mg Discharge Plan Admission Admit Date/Time: 08/08/23 19:27 Attending Provider: Keny Hunter Primary Care Provider: Manuel Joy Consulting Providers: Jennifer Jackson Discharge Orders/Prescriptions Prescriptions: Continued ibuprofen 600 mg tablet 600 mg PO Q8H PRN (Reason: musculoskeletal pain) omega-3 fatty acids 1,000 MG capsule 1,000 mg PO DAILY Referrals / Follow Up: Manuel Joy MD [Primary Care Provider] - Disposition Disposition (needs filled in before D/C Order can be placed): Home, Self Care Charges/Coding Visit Charges Inpatient E&M: 92787 Disch Hosp >30min 08/11/23 1004 <Electronically signed by Keny Hunter MD> Cosigner Signature (if applicable): CC: Dr. Keny Hunter MD; Dr. Manuel Joy MD~ Signed [facility] Work Phone: 1(169) 442-236205-04-2024 [facility] Medical Records Department [address] [place] [address] Discharge Summary 08/11/23 0740 MR#: [id number] Acct: [id number] Name: AIMEE PALM Rep #: [id number] : 1950 73 From: Keny Hunter MD PCP: Dr. Manuel Joy MD Status:ADM IN Location: [facility] [id number] Providers Date of Admission: 08/08/23 Date of Discharge: 08/11/23 Primary Care Physician: Dr. Manuel Joy MD Reason For Visit: SYNCOPE,UTI Diagnosis Discharge Diagnosis (1) Syncope: Status: Acute Code(s): R55 - Syncope and collapse (2) UTI (urinary tract infection): Status: Acute Code(s): N39.0 - Urinary tract infection, site not specified Plan Patient is a 73-year-old lady admitted progressive generalized weakness and fatigue which was followed by a presyncopal episode. Her evaluation on admission was consistent with acute cystitis admitted to monitored bed for further management 1. PreSyncopal episode ??? Do suspect orthostatic hypotension. Patient has been admitted to monitored bed management IV fluid continuous telemetry monitoring serial cardiac enzymes as well as echo ordered ???08/11/2023; 2D echo demonstrated normal LV size. Left ventricular systolic function is normal.The estimated ejection fraction is 60 %. Structurally normal valves. 2. Acute complicated cystitis ??? Patient started on ceftriaxone urine culture sent we will follow-up on result ??? 08/10/2023 urine cultures pending. Patient had a bout of emesis this a.m. treated symptomatically ??? 08/11/2023 final culture did not exhibit any growth. Antibiotics discontinued on discharge 3. History of BPPV ??? Stable 4. Chronic kidney disease stage II rule out 5. Physical deconditioning - Requested for PT OT eval and social sciences instructor to assist with discharge planning 6. DVT prophylaxis ??? [facility] Lovenox Time spent in the patient's overall evaluation,decision-making process, review of diagnostic data, adjustment of management, discussion with other providers, nursing nursing and ancillary staff involved in patient's care documentation, 35 Minutes Medications at Discharge Home Medications omega-3 fatty acids 1,000 mg capsule 1,000 mg PO DAILY SUPPLEMENT 07/29/18 ibuprofen 600 mg tablet 600 mg PO Q8H PRN musculoskeletal pain 04/23/23 Physical Exam Narrative GENERAL: cooperative HEENT: Atraumatic; normocephalic EYES; Anicteric, Normal Conjunctiva NECK; supple, normal thyroid, RESPIRATORY: Diminished to auscultation CARDIOVASCULAR: Regular S1 S2, GI: soft, normoactive bowel sounds, : No Renal angle tenderness; EXTREMITIES: No edema, no clubbing, MUSCULOSKELETAL: no muscle wasting NEURO: Awake; no lateralizing signs. SKIN: No Rash PSYCH; Flat affect Weight / BMI Weight Weight: 55 kg Body Mass Index (BMI) 19.5 ABG / Lab / Microbiology Data 08/10/23 07:45 08/10/23 07:45 Laboratory: Laboratory Results - last 24 hr 08/10/23 07:45: WBC 3.5 L, RBC 3.39 L, Hgb 11.1 L, Hct 32.2 L, MCV 95.0, MCH 32.7 H, MCHC 34.5, RDW Std Deviation 42.1, RDW Coeff of Petros 12.3, Plt Count 130 L, MPV 8.6, Immature Gran % (Auto) 0.000, Neut % (Auto) 75.9 H, Lymph % (Auto) 19.5, Kinney % (Auto) 4.0, Eos % (Auto) 0.3, Baso % (Auto) 0.3, Absolute Neuts (auto) 2.7, Absolute Lymphs (auto) 0.68 L, Nucleated RBC % 0, Sodium 135 L, Potassium 3.6, Chloride 104, Carbon Dioxide 22.0, Anion Gap 9, BUN 14, Creatinine 0.84, Estim Creat Clear Calc 50.09, Est GFR (MDRD) Af Amer 85, Est GFR (MDRD) Non-Af 70, BUN/Creatinine Ratio 16.7, Glucose 185 H , Calcium 8.5, Phosphorus 2.8, Magnesium 1.9 Microbiology: Microbiology 08/08/23 16:50 Urine, Clean Catch Urine Culture - Final Culture exhibits no growth. 08/08/23 15:40 Mucosa - Nose SARS-CoV-2, Influenza RSV (PCR) - Final Radiography Diagnostic Testing: Radiology Impression Echocardiogram 08/10/23 10:21 Interpretation Summary Normal LV size. Left ventricular systolic function is normal. The estimated ejection fraction is 60 %. Structurally normal valves. Ordering Physician: Keny Hunter Referring Physician: Jennifer Jackson Performed By: Suzanne Meza RCS D/C Instructions Discharge Diet: No restrictions Discharge Activity: Return to Normal Activity Call your doctor if you observe: Fever of 101 or Higher, Shortness of breath, Fainting spells and Chest pain Meaningful Use Info Meaningful Use Meaningful Use Diagnoses (Choose all that apply): None applicable Ischemic Stroke Statin Dosing Therapy Reference: STATIN DOSE THERAPY REFERENCE: * Patients > 75 years receive moderate or high dose statin therapy. * Patients 75 years or YOUNGER should receive HIGH intensity statin dose unless c (more content notincluded)...[facility]05-03-2024 Progress note Author Keny Hunter [facility] August 10, 2023 10:22am Note Date/Time August 10, 2023 7:29am [facility] Medical Records Department [address] [place] [id number] Progress Note - Hospitalist 08/10/23 0729 MR#: [id number] Acct: [id number] Name: AIMEE PALM Domi Rep #:[id number] : 1950 73 From: Keny Hunter MD PCP: Dr. Manuel Joy MD Status:ADM IN Location: [place] [address] Reason for Visit Reason for Visit: Diagnoses Urinary tract infection, site not specified (08/08/23) Syncope and collapse (08/08/23) Subjective Subjective Patient seen urine culture still pending. Had a bout of emesis this a.m. Objective Data Objective Data Vital Signs: Vital Signs Temp Pulse Resp BP Pulse Ox O2 Del Method 97.6 F L 63 18 115/59 L 100 Room Air 08/10/23 05:53 08/10/23 06:17 08/10/23 06:17 08/10/23 06:17 08/10/23 06:17 08/10/23 06:17 Oxygen Delivery Method Room Air Weight: 54 kg Body Mass Index (BMI) 19.2 Intake & Output: Intake and Output for Last 24 Hours 08/08/23 08/09/23 08/10/23 23:59 23:59 23:59 Intake Total 1050 / 1050 3350 / 3350 Balance 1050 / 1050 3350 / 3350 Lab / Micro Data 08/10/23 07:45 08/10/23 07:45 Labs: Laboratory Results - last 24 hr 08/09/23 06:15: Sodium 136, Potassium 3.9, Chloride 105, Carbon Dioxide 24.0, Anion Gap 7, BUN 12, Creatinine 0.66, Estim Creat Clear Calc 50.16, Est GFR (MDRD) Af Amer 112, Est GFR (MDRD) Non-Af 93, BUN/Creatinine Ratio 18.2, [id number], Calcium 8.4 L, Total Bilirubin 0.90, AST 13 L, ALT 15, Alkaline Phosphatase 38 L, Total Protein 6.2 L, Albumin 3.2, Globulin 3.0, Albumin/Globulin Ratio 1.1 Micro: Microbiology 08/08/23 15:40 Mucosa - Nose SARS-CoV-2, Influenza & RSV (PCR) - Final Physical Exam Narrative GENERAL: cooperative HEENT: Atraumatic; normocephalic EYES; Anicteric, Normal Conjunctiva NECK; supple, normal thyroid, RESPIRATORY: Diminished to auscultation CARDIOVASCULAR: Regular S1 S2, GI: soft, normoactive bowel sounds, : No Renal angle tenderness; EXTREMITIES: No edema, no clubbing, MUSCULOSKELETAL: no muscle wasting NEURO: Awake; no lateralizing signs. SKIN: No Rash PSYCH; Flat affect Assessment & Plan Assessment/Plan (1) Syncope: (2) UTI (urinary tract infection): PLAN: Plan Patient is a 73-year-old lady admitted progressive generalized weakness and fatigue which was followed by a presyncopal episode. Her evaluation on admission was consistent with acute cystitis admitted to monitored bed for further management 1. PreSyncopal episode ? Do suspect orthostatic hypotension. Patient has been admitted to monitored bed management IV fluid continuous telemetry monitoring serial cardiac enzymes as well as echo ordered 2. Acute complicated cystitis ? Patient started on ceftriaxone urine culture sent we will follow-up on result ? 08/10/2023 urine cultures pending. Patient had a bout of emesis this a.m. treated symptomatically 3. History of BPPV ? Stable 4. Chronic kidney disease stage II rule out 5. Physical deconditioning - Requested for PT OT eval and social sciences instructor to assist with discharge planning 6. DVT prophylaxis ? SC Lovenox Time spent in the patient's overall evaluation,decision-making process, review of diagnostic data, adjustment of management, discussion with other providers, nursing nursing and ancillary staff involved in patient's care documentation, 35Minutes Charges/Coding Visit Charges Inpatient E&M: 55266 Subs Hosp L2 08/10/23 1022 <Electronically signed by Keny Hunter MD> Cosigner Signature (if applicable): CC: ~ Signed [facility] Work Phone: 1(901) 927-213405-02-2024 Progress note Author Keny Hunter [facility] August 09, 2023 10:06am Note Date/Time August 09, 2023 10:02a [facility] Medical Records Department [address] [place] [address] Progress Note - Hospitalist 08/09/23 0959 MR#: [id number] Acct: [id number] Name: AIMEE PALM Domi Rep #:[id number] : 1950 73 From: Keny Hunter MD PCP: Dr. Manuel Joy MD Status:ADM IN Location: [place] [address] Reason for Visit Reason for Visit: Diagnoses Urinary tract infection, site not specified (08/08/23) Syncope and collapse (08/08/23) Subjective Subjective Patient is a 73-year-old lady admitted progressive generalized weakness and fatigue which was followed by a presyncopal episode. Her evaluation on admission was consistent with acute cystitis admitted to monitored bed for further management Objective Data Objective Data Vital Signs: Vital Signs Temp Pulse Resp BP Pulse Ox O2 Del Method 98.6 F 56 L 16 140/50 H 98 Room Air 08/09/23 08:38 08/09/23 08:38 08/09/23 08:38 08/09/23 08:38 08/09/23 08:38 08/09/23 08:53 Oxygen Delivery Method Room Air Weight: 51.5 kg Body Mass Index (BMI) 18.3 Intake & Output: Intake and Output for Last 24 Hours 08/07/23 08/08/23 08/09/23 23:59 23:59 23:59 Intake Total 1050 / 1050 1000 / 1000 Balance 1050 / 1050 1000 / 1000 Lab / Micro Data 08/09/23 06:15 08/09/23 06:15 Labs: Laboratory Results - last 24 hr 08/08/23 14:35: WBC 4.0 L, RBC 3.83 L, Hgb 12.8, Hct 37.6, MCV 98.2, MCH 33.4 H,MCHC 34.0, RDW Std Deviation 44.2 H, RDW Coeff of Petros 12.3, Plt Count 155, MPV 8.7, Immature Gran % (Auto) 0.500, Neut % (Auto) 63.3, Lymph % (Auto) 28.3, Kinney% (Auto) 7.3, Eos % (Auto) 0.3, Baso % (Auto) 0.3, Absolute Neuts (auto) 2.5, Absolute Lymphs (auto) 1.13, Nucleated RBC % 0, Sodium 136, Potassium 3.6, Chloride 103, Carbon Dioxide 29.0, Anion Gap 4 L, BUN 19 H, Creatinine 0.94, Estim Creat Clear Calc 42.15, Est GFR (MDRD) Af Amer 75, Est GFR (MDRD) Non-Af 62, BUN/Creatinine Ratio 20.2 H, Glucose 100, Calcium 8.6, Troponin I High Sens 4 08/08/23 16:50: Urine Color Yellow, Urine Clarity Clear, Urine pH 6.0, Ur Specific [place] 1.020, Urine Protein 15 H, Urine Glucose (UA) Normal, Urine Ketones Negative, Urine Occult Blood 10 H, Urine Nitrite Negative, Urine Bilirubin Negative, Urine Urobilinogen Normal, Ur Leukocyte Esterase 500 H, Urine RBC 0 SEEN, Urine WBC 10-25 SEEN, Ur Squamous Epith Cells 0 SEEN, Urine Bacteria 1+, Urine Mucus 0 SEEN 08/08/23 17:35: Magnesium 2.0, Troponin I High Sens 5 08/08/23 21:00: Troponin I High Sens 5 08/09/23 06:15: WBC 3.6 L, RBC 3.43 L, Hgb 11.3 L, Hct 33.0 L, MCV 96.2, MCH 32.9 H, MCHC 34.2, RDW Std Deviation 42.4, RDW Coeff of Petros 12.1, Plt Count 134 L, MPV 9.1, Immature Gran % (Auto) 0.300, Neut % (Auto) 56.5, Lymph % (Auto) 35.6, Kinney % (Auto) 6.2, Eos % (Auto) 0.8, Baso % (Auto) 0.6, Absolute Neuts (auto) 2.0, Absolute Lymphs (auto) 1.27, Nucleated RBC % 0, Sodium 136, Potassium 3.9, Chloride 105, Carbon Dioxide 24.0, Anion Gap 7, BUN 12, Creatinine 0.66, Estim Creat Clear Calc 50.16, Est GFR (MDRD) Af Amer 112, Est GFR (MDRD) Non-Af 93, BUN/Creatinine Ratio 18.2, Glucose 97, Calcium 8.4 L, Total Bilirubin 0.90, AST 13 L, ALT 15, Alkaline Phosphatase 38 L, Total Protein6.2 L, Albumin 3.2, Globulin 3.0, Albumin/Globulin Ratio 1.1 Micro: Microbiology 08/08/23 15:40 Mucosa - Nose SARS-CoV-2, Influenza & RSV (PCR) - Final Radiography Diagnostic Testing: Radiology Impression Brain CT 08/08/23 15:13 IMPRESSION: No acute intracranial abnormality. Chronic involutional and ischemic changes of the brain. Electronically Signed: Edis Torres MD at 16:45 EDT , Chest X-Ray 08/08/23 16:05 IMPRESSION: Hyperinflated lungs which can be seen in COPD. No acute radiographic abnormalities. Electronically Signed: Edis Torres MD at 16:47 EDT , Physical Exam Narrative GENERAL: cooperative HEENT: Atraumatic; normocephalic EYES; Anicteric, Normal Conjunctiva NECK; supple, normal thyroid, RESPIRATORY: Diminished to auscultation CARDIOVASCULAR: Regular S1 S2, GI: soft, normoactive bowel sounds, : No Renal angle tenderness; EXTREMITIES: No edema, no clubbing, MUSCULOSKELETAL: no muscle wasting NEURO: Awake; no lateralizing signs. SKIN: No Rash PSYCH; Flat affect Assessment & Plan Assessment/Plan (1) Syncope: (2) UTI (urinary tract infection): PLAN: Plan Patient is a 73-year-old lady admitted progressive generalized weakness and fatigue which was followed by a presyncopal episode. Her evaluation on admission was consistent with acute cystitis admitted to monitored bed for further management 1. PreSyncopal episode ? Do suspect orthostatic hypotension. Patient has been admitted to monitored bed management IV fluid continuous telemetry monitoring serial cardiac enzymes as well as echo ordered 2. Acute complicated cystitis ? Patient started on ceftriaxone urine culture sent we will follow-up on result 3. History of BPPV ? Stable 4. Chronic kidney disease stage II rule out 5. Physical deconditioning - Requested for PT OT eval and social sciences instructor to assist with discharge planning 6. DVT prophylaxis ? SC Lovenox Time spent in the patient's overall evaluation,decision-making process, review of diagnostic data, adjustment of management, discussion with other providers, nursing nursing and ancillary staff involved in patient's care documentation,38 Minutes Charges/Coding Visit Charges Inpatient E&M: 41115 Subs Hosp L2 08/09/23 1006 <Electronically signed by Keny Hunter MD> Cosigner Signature (if applicable): CC: ~ Signed [facility] Work Phone: 1(313) 408-854105-01-2024 History and physical note Author Jennifer Jackson [facility] August 08, 2023 7:59pm Note Date/Time August 08, 2023 7:29pm [facility] Medical Records Department [address] [place] [address] H&P Exam - Hospitalist 08/08/231924 MR#: [id number] Acct: [id number] Name: NÉSTORAIMEE Duron Rep #:[id number] : 1950 73 From: Jennifer Jackson MD PCP: Dr. Manuel Joy MD Status:ADM IN Location: [facility] [id number] HPI - General General Date of Admission: 08/08/23 Date of Service: 08/08/23 Chief Complaint: Weakness, malaise, fatigue, syncopal event. HPI Narrative The patient is a 73 y/o w/ PMHx: CKD stage II per GFR trending, Hx Chronic thrombocytopenia, Chronic neutropneia, Hx BPPV who presents to the [facility] ED on 08/08/23 with history of generalized fatigue, malaise and weakness x 4-5 days however it has been worsening with increased urinary frequency and itching/burning sensation over the last 3-4 days with reported sudden onset syncopal event just prior to deciding to come to the ED with no specific prodrome such as lightheadedness, dizziness, chest pain or dyspnea only a mild headache lasting only seconds but it did take a couple minutes to get up and andambulate after this episode with no recent fevers or chills prompting eventual ED evaluation. She also notes some BL lower back discomfort and occasional LLQ abdominal sharp discomfort but this only lasts seconds. She has had decreased appetite. Workup in the ED included T97.6, heart rate 86, BP 131/89, respiratoryrate 16, 98% on room air with most recent repeat vital signs T98.1, heart rate 75, BP 137/67, respiratory rate 16, 99% on room air, CBC with WBC 4.0, hemoglobin 12.8, MCV 98.2, platelet 155 without marked shift, BMP with BUN/creatinine 19/0.94, GFR 62, initial troponin 4 with repeat delta 5, urinalysis with specific remedy 1.020, urine protein 15, occult blood 10, negative nitrite, leukocyte Estrace 500 with urine WBCs 10-25 with 1+ urine bacteria, urine culture pending per ED, SARS COVID/influenza/RSV PCR negative, chest x-ray with chronic COPD type changes otherwise no acute cardiopulmonary findings, CT brain with chronic involutional and ischemic changes of the brain with no acute intracranial findings otherwise, EKG with SR with non-specific changes similar to prior. In the ED patient ministered 1 L normal saline as well as Rocephin 1 g IV x 1. PFSH Medical History (Updated 08/08/23 @ 19:[address] Jennifer Jackson MD) BPV (benign positional vertigo) Chronic idiopathic thrombocytopenia Chronic neutropenia CKD (chronic kidney disease), stage II Home Medications omega-3 fatty acids 1,000 mg capsule 1,000 mg PO DAILY SUPPLEMENT 07/29/18 [History Last Taken 08/08/23] ibuprofen 600 mg tablet 600 mg PO Q8H PRN musculoskeletal pain 04/23/23 [History Last Taken Unknown] Allergy/AdvReac Type Severity Reaction Status Date / Time No Known Allergies Allergy Verified 08/08/23 13:58 Family History (Updated 08/08/23 @ 19:[address] Jennifer Jackson MD) Mother Cancer Heart disease Heart failure Hypertension Father Pulmonary fibrosis Surgical History Hx of cholecystectomy Social History (Updated 08/08/23 @ 19:[address] Jennifer Jackson MD) household members: spouse Smoking Status: Never smoker alcohol intake: never substance use type: does not use ROS ROS Narrative Admission Review of Systems: CONSTITUTIONAL: No weight loss, fever, chills, + weakness or fatigue. HEENT: + Generalized mild headache. Eyes: No visual loss, blurred vision, double vision or yellow sclerae. Ears, Nose, Throat: No hearing loss, sneezing, congestion, runny nose or sore throat. SKIN: No rash or itching, lesions, wounds. CARDIOVASCULAR: + Syncopal event. No chest pain, chest pressure or chest discomfort, palpitations, edema, orthopnea. RESPIRATORY: No shortness of breath, cough or sputum, wheezing, hemoptysis. GASTROINTESTINAL: + anorexia, very transient intermittent left lower quadrant abdominal pain. No nausea, vomiting or diarrhea, melena, BRBPR. GENITOURINARY: + dysuria, frequency, bilateral lumbar back discomfort. No urgency or retention. NEUROLOGICAL: + Syncopal event with no prodrome, Occasional mild generalized headache. No paralysis, ataxia, numbness or tingling in the extremities, focal weakness, change in bowel or bladder control, seizure. MUSCULOSKELETAL: + muscle, back pain, joint pain or stiffness. HEMATOLOGIC: No anemia. Easy bleeding/bruising. LYMPHATICS: No enlarged nodes. No history of splenectomy. PSYCHIATRIC: No history of depression or anxiety. ENDOCRINOLOGIC: No reports of sweating, cold or heat intolerance. No polyuria orpolydipsia. ALLERGIES: No history of asthma, hives, eczema or rhinitis. Vital Signs Vital Signs Vital Signs: 08/08/23 13:58 08/08/23 14:12 08/08/23 15:58 Temperature 97.6 F L Temperature Source Temporal Pulse Rate 89 68 Respiratory Rate 16 15 Respiratory Effort Normal Non-Labored Respiratory Pattern Normal Blood Pressure 131/89 H 130/78 H Blood Pressure Mean 103 95 Pulse Ox 98 98 Oxygen Delivery Method Room Air Room Air 08/08/23 17:00 08/08/23 19:00 08/08/23 19:00 Temperature 98.1 F 98.1 F Temperature Source Temporal Pulse Rate 78 75 75 Respiratory Rate 19 H 16 16 Respiratory Effort Respiratory Pattern Blood Pressure 147/68 H 137/67 H 137/67 H Blood Pressure Mean 94 90 90 Pulse Ox 96 99 99 Oxygen Delivery Method Room Air Room Air 08/08/23 19:00 Temperature 98.1 F Temperature Source Temporal Pulse Rate 75 Respiratory Rate 16 Respiratory Effort Respiratory Pattern Blood Pressure 137/67 H Blood Pressure Mean 90 Pulse Ox 99 Oxygen Delivery Method Room Air Weight Weight: 112 lb 1.6 oz Body Mass Index (BMI) 19.8 Physical Exam Narrative Physical Examination: General: Awake, alert, oriented x 3 and cooperative, laying in the ED bed, fatigued, mildly ill-appearing. Skin: Normal color, normal turgor, no icterus, no cyanosis except occasional staged ecchymoses. HEENT: AT/NC, EOMI, PERRLA, dry MM, no carotid bruits or JVD noted. Lungs: Mildly diminished, greater bases, proper effort, no rales, ronchi or wheezing. Heart: Currently regular rate and rhythm; no gallop, rub audible. Abdomen: Soft, no reproducible abdominal discomfort, no flank pain with palpation, ND, mildly hyperactive BS, no appreciated HSM. Extremities: No cyanosis, clubbing, or edema. Neurological: Patient awake, alert, oriented as noted, cognitive function intact; pupils equally reactive to light and accommodation, cranial nerves grossly normal, moving all 4 extremities, no focal deficits, strength moderatelyto severely globally decreased secondary to acute presentation complaints. Psychiatric: Affect appears flat, fatigued, mildly ill-appearing, no acute evidence of depressive or anxiety feelings. Results Lab / Micro Data 08/08/23 14:35 08/08/23 14:35 Labs: Laboratory Results - last 24 hr 08/08/23 14:35: WBC 4.0 L, RBC 3.83 L, Hgb 12.8, Hct 37.6, MCV 98.2, MCH 33.4 H,MCHC 34.0, RDW Std Deviation 44.2 H, RDW Coeff of Petros 12.3, Plt Count 155, MPV 8.7, Immature Gran % (Auto) 0.500, Neut % (Auto) 63.3, Lymph % (Auto) 28.3, Kinney% (Auto) 7.3, Eos % (Auto) 0.3, Baso % (Auto) 0.3, Absolute Neuts (auto) 2.5, Absolute Lymphs (auto) 1.13, Nucleated RBC % 0, Sodium 136, Potassium 3.6, Chloride 103, Carbon Dioxide 29.0, Anion Gap 4 L, BUN 19 H, Creatinine 0.94, Estim Creat Clear Calc 42.15, Est GFR (MDRD) Af Amer 75, Est GFR (MDRD) Non-Af 62, BUN/Creatinine Ratio 20.2 H, Glucose 100, Calcium 8.6, Troponin I High Sens 4 08/08/23 16:50: Urine Color Yellow, Urine Clarity Clear, Urine pH 6.0, Ur Specific [place] 1.020, Urine Protein 15 H, Urine Glucose (UA) Normal, Urine Ketones Negative, Urine Occult Blood 10 H, Urine Nitrite Negative, Urine Bilirubin Negative, Urine Urobilinogen Normal, Ur Leukocyte Esterase 500 H, Urine RBC 0 SEEN, Urine WBC 10-25 SEEN, Ur Squamous Epith Cells 0 SEEN, Urine Bacteria 1+, Urine Mucus 0 SEEN 08/08/23 17:35: Troponin I High Sens 5 Micro: Microbiology 08/08/23 15:40 Mucosa - Nose SARS-CoV-2, Influenza & RSV (PCR) - Final Imaging Radiology Impression Brain CT 08/08/23 15:13 IMPRESSION: No acute intracranial abnormality. Chronic involutional and ischemic changes of the brain. Electronically Signed: Edis Torres MD at 16:45 EDT , Chest X-Ray 08/08/23 16:05 IMPRESSION: Hyperinflated lungs which can be seen in COPD. No acute radiographic abnormalities. Electronically Signed: Edis Torres MD at 16:47 EDT , Assessment & Plan Assessment/Plan (1) Syncope: (2) UTI (urinary tract infection): PLAN: Plan The patient is a 73 y/o w/ PMHx: CKD stage II per GFR trending, Hx Chronic thrombocytopenia, Chronic neutropneia, Hx BPPV who presents to the [facility] ED on 08/08/23 with history of generalized fatigue, malaise and weakness with reported sudden onset syncopal event just prior to deciding to come to the ED with no specific prodrome such as lightheadedness, dizziness, chest pain or dyspnea onlya mild headache lasting only seconds but it did take a couple minutes to get up and and ambulate after this episode with no recent fevers or chills prompting eventual ED evaluation. #1. Syncopal Event, suspected related with #2: EKG in ED w/ sinus rhythm without evidence of acute ischemia, CXR w/ COPD type changes, initial trop normal with repeat delta also normal. Will admit to PCU, place on a monitored bed to assure no acute myocardial infarction with serial cardiac enzymes and EKGs. Will maintain on fall precautions, obtain admission orthostatic and AM orthostatic VS and increase hydration if appropriate. If no marked findings and recurrent event despite treatment as noted #2 or further concerns arise may needto also consider ECHO. PT/OT/CM consultation to ascertain stability and discharge needs. #2. Acute Complicated Urinary Tract Infection: Suspect possible etiology for #1as noted above, UA upon ED evaluation remarkable, pending UCx, will maintain on judicious, monitor I/Os, continue IV Rocephin w/ transition as able pending sensitivities and speciation. #3. History of benign positional vertigo: As noted patient with no specific prodrome prior to her syncopal event, likely unrelated with BPPV history. #4. History of chronic thrombocytopenia: Admission platelet 155, also noted to be normal 08/22/2021 at platelet 178 but previous to this had been 100-1 20 rangehowever this was in 2019, continue to trend CBC. #5. Chronic neutropenia, unclear etiology: Admission WBC 4.0, prior to this 08/22/2021 WBC 3.4 with prior to this in 2019 noted WBC 5-7 range, will continue to trend CBC. #6. Chronic Kidney Disease Stage II: Admission BUN/Cr 19/0.94, GFR 62, baselinerenal function primarily 0.7-0.8, most recent GFR previously 08/22/2273 and was primarily 70-80 range prior to this recent presentation, repeat BMP in AM to further elucidate. #7. DVT prophylaxis: Lovenox. #8. CODE status: Patient GONZALES is her daughter Gail and living will she believes is also in place. Discussed CODE status at length including difference between FULL code, DNR-CCA and DNR-CC status. Following discussions about the differences in these status, requested Full Code status. Advanced Care Planning Face to Face Time: 16 minutes. Charges/Coding Visit Charges Inpatient E&M: 27745 Init Hosp L3 Procedures Hospitalists Procedures: 79841 Advncd Care Plan 30 Min 08/08/231958 <Electronically signed by Jennifer Jackson MD> Cosigner Signature (if applicable): CC: Dr. Jennifer Jackson MD; Dr. Manuel Joy MD~ Signed [facility] Work Phone: 1(922) 442-612405-01-2024 Discharge summary Author Roula [facility] August 08, 2023 7:29pm Note Date/Time August 08, 2023 6:25pm [facility] Medical Records Department [address] [place] [address] Emergency Department Summary 08/08/23 MR#: [id number] Acct: [id number] Name: AIMEE PALM Rep #:[id number] : 1950 73 From: Roula Dominguez MD PCP: Dr. Manuel Joy MD Status:REG ER Location: ED HPI History of Present Illness Chief Complaint: Weakness Informant: patient Narrative Narrative: 73-year-old female presenting with generalized weakness and fatigue. Patient had a syncopal episode prior to arrival. Patient states she did not feel this coming on and she just collapsed to the ground. She denies chest pain or shortness of breath. Denies fever. She states she has felt weak and tired for the last few days. She complains of mild headache. Denies nausea or vomiting. Denies abdominal pain. She states it took a few minutes for her to get up but she was able to ambulate after the syncopal episode. Prior similar symptoms: No Recent Illness/Hospitalization: No PFSH PFSH Medical History (Updated 08/08/23 @ 19:[address] Jennifer Jackson MD) BPV (benign positional vertigo) Chronic idiopathic thrombocytopenia Chronic neutropenia CKD (chronic kidney disease), stage II Home Medications omega-3 fatty acids 1,000 mg capsule 1,000 mg PO DAILY SUPPLEMENT 07/29/18 [History Last Taken 08/08/23] ibuprofen 600 mg tablet 600 mg PO Q8H PRN musculoskeletal pain 04/23/23 [History Last Taken Unknown] Allergy/AdvReac Type Severity Reaction Status Date / Time No Known Allergies Allergy Verified 08/08/23 13:58 Family History (Updated 08/08/23 @ 19:[address] Jennifer Jackson MD) Mother Cancer Heart disease Heart failure Hypertension Father Pulmonary fibrosis Surgical History Hx of cholecystectomy Social History (Updated 08/08/23 @ 19:[address] Jennifer Jackson MD) household members: spouse Smoking Status: Never smoker alcohol intake: never substance use type: does not use ROS ROS ED Constitutional Constitutional ED: Denies fever(s) Eyes Eyes: Denies change in vision ENT ENT ED: Denies rhinorrhea or sore throat Cardiovascular Cardiovascular: Denies chest pain or palpitations Respiratory/Chest Respiratory/Chest: Denies cough or dyspnea Gastrointestinal Gastrointestinal: Denies abdominal pain, diarrhea, nausea or vomiting Genitourinary Genitourinary ED: Denies dysuria Musculoskeletal Musculoskeletal: Denies myalgias Integumentary Denies rash Neurologic Neurologic: Reports headache(s) Psychiatric Psychiatric: Denies suicidal thoughts EXAM Physical Exam Const Vital Signs: 08/08/23 13:58 08/08/23 14:12 08/08/23 15:58 Temperature 97.6 F L Temperature Source Temporal Pulse Rate 89 68 Respiratory Rate 16 15 Respiratory Effort Normal Non-Labored Respiratory Pattern Normal Blood Pressure 131/89 H 130/78 H Blood Pressure Mean 103 95 Pulse Ox 98 98 Oxygen Delivery Method Room Air Room Air 08/08/23 17:00 08/08/23 19:00 08/08/23 19:00 Temperature 98.1 F 98.1 F Temperature Source Temporal Pulse Rate 78 75 75 Respiratory Rate 19 H 16 16 Respiratory Effort Respiratory Pattern Blood Pressure 147/68 H 137/67 H 137/67 H Blood Pressure Mean 94 90 90 Pulse Ox 96 99 99 Oxygen Delivery Method Room Air Room Air 08/08/23 19:00 Temperature 98.1 F Temperature Source Temporal Pulse Rate 75 Respiratory Rate 16 Respiratory Effort Respiratory Pattern Blood Pressure 137/67 H Blood Pressure Mean 90 Pulse Ox 99 Oxygen Delivery Method Room Air Positive well nourished and well developed General Appearance ED: well developed HEENT Reports normocephalic and head/scalp atraumatic Eyes PERRL and EOMs intact bilaterally Neck supple General: Negative for tenderness Chest Wall inspection of chest normal Resp normal respiratory effort and clear to auscultation bilaterally Cardio regular rate and regular rhythm GI non-tender and non-distended Palpation: soft; Negative for guarding or rebound tenderness present no CVA tenderness Extremity normal to inspection Neuro oriented x3 Sensorium / Orientation: alert Psych mental status grossly normal Skin no rashes or lesions noted MDM MDM MDM Narrative Medical decision making narrative: 73-year-old female presenting with generalized weakness, fatigue, syncopal episode. Differential diagnosis includes vasovagal syncope, dysrhythmia, ACS, viral syndrome, UTI. EKG is sinus rhythm rate of 61 with no acute ischemic changes. CBC unremarkable, white count 4.0. Chemistries unremarkable other than BUN 19. Troponin and delta troponin negative. Urinalysis shows 10-25 white blood cells,1+ bacteria. Urine culture was sent. She was given Rocephin IV. COVID, influenza negative. Chest x- ray read by myself and radiology shows no acute process. CT head shows no acute process. Patient continues to feel weak and fatigued. Discussed with hospitalist for admission. History & Record Review Discussion w/independent historian: Patient and Family Additional record(s) reviewed:: Prior labs Lab Data Attestation: I reviewed the patient's lab results. Labs: Laboratory Results - last 24 hr 08/08/23 08/08/23 08/08/23 14:35 16:50 17:35 WBC 4.0 L RBC 3.83 L Hgb 12.8 Hct 37.6 MCV 98.2 MCH 33.4 H MCHC 34.0 RDW Std Deviation 44.2 H RDW Coeff of Petros 12.3 Plt Count 155 MPV 8.7 Immature Gran % (Auto) 0.500 Neut % (Auto) 63.3 Lymph % (Auto) 28.3 Kinney % (Auto) 7.3 Eos % (Auto) 0.3 Baso % (Auto) 0.3 Absolute Neuts (auto) 2.5 Absolute Lymphs (auto) 1.13 Nucleated RBC % 0 Sodium 136 Potassium 3.6 Chloride 103 Carbon Dioxide 29.0 Anion Gap 4 L BUN 19 H Creatinine 0.94 Estim Creat Clear Calc 42.15 Est GFR (MDRD) Af Amer 75 Est GFR (MDRD) Non-Af 62 BUN/Creatinine Ratio 20.2 H Glucose 100 Calcium 8.6 Troponin I High Sens 4 5 Urine Color Yellow Urine Clarity Clear Urine pH 6.0 Ur Specific [place] 1.020 Urine Protein 15 H Urine Glucose (UA) Normal Urine Ketones Negative Urine Occult Blood 10 H Urine Nitrite Negative Urine Bilirubin Negative Urine Urobilinogen Normal Ur Leukocyte Esterase 500 H Urine RBC 0 SEEN Urine WBC 10-25 SEEN Ur Squamous Epith Cells 0 SEEN Urine Bacteria 1+ Urine Mucus 0 SEEN Radiography Chest X-Ray - ED: 1 View, Read by ED Physician, Read by Radiologist and No AcuteDisease Diagnostic Testing: Clinical Impression(s) from Imaging Studies Brain CT 08/08/23 15:13 IMPRESSION: No acute intracranial abnormality. Chronic involutional and ischemic changes of the brain. Electronically Signed: Edis Torres MD at 16:45 EDT , Chest X-Ray 08/08/23 16:05 IMPRESSION: Hyperinflated lungs which can be seen in COPD. No acute radiographic abnormalities. Electronically Signed: Edis Torres MD at 16:47 EDT , Discharge Plan Triage Chief Complaint: Weakness ED Provider: Roula Dominguez Dx/Rx/DC Orders Clinical Impression: UTI (urinary tract infection), Generalized weakness, Syncope Prescriptions: No Action ibuprofen 600 mg tablet 600 mg PO Q8H PRN (Reason: musculoskeletal pain) omega-3 fatty acids 1,000 MG capsule 1,000 mg PO DAILY Primary Care Provider: Manuel Joy Referrals: Manuel Joy MD [Primary Care Provider] - [facility] What to do if you have Problems For any increased pain, shortness of breath, bleeding, nausea or vomiting, chestpain, or any unexpected problems, contact your Primary Care Provider. Call [facility] ([phone]) or report to the closest Emergency Room. Call 911 if necessary. 08/08/231928 <Electronically signed by Roula Dominguez MD> Cosigner Signature (if applicable): CC: Dr. Manuel Joy MD ~ Signed [facility] Work Phone: Evaluation note* Diagnosis Onset Date Resolution Status Abdominal pain acute Constipation acute [facility] Work Phone: Evaluation note* Diagnosis Onset Date Resolution Status Chalazion of right upper eyelid acute Constipation acute Thrombocytopenia acute Generalized weakness acute Syncope acute UTI (urinary tract infection) [facility] Work Phone: Evaluation note* Diagnosis Urinary frequency- Primary documented [facility] Author Jennifer Jackson [facility] August 08, 2023 7:59pm Note Date/Time August 08, 2023 7:29pm [facility] Medical Records Department [address] [place] [address] H&P Exam - Hospitalist 08/08/231924 MR#: [id number] Acct: [id number] Name: AIMEE PALM Domi Rep #:[id number] : 1950 73 From: Jennifer Jackson MD PCP: Dr. Manuel Joy MD Status:ADM IN Location: [place] [address] HPI - General General Date of Admission: 08/08/23 Date of Service: 08/08/23 Chief Complaint: Weakness, malaise, fatigue, syncopal event. HPI Narrative The patient is a 73 y/o w/ PMHx: CKD stage II per GFR trending, Hx Chronic thrombocytopenia, Chronic neutropneia, Hx BPPV who presents to the [facility] ED on 08/08/23 with history of generalized fatigue, malaise and weakness x 4-5 days however it has been worsening with increased urinary frequency and itching/burning sensation over the last 3-4 days with reported sudden onset syncopal event just prior to deciding to come to the ED with no specific prodrome such as lightheadedness, dizziness, chest pain or dyspnea only a mild headache lasting only seconds but it did take a couple minutes to get up and andambulate after this episode with no recent fevers or chills prompting eventual ED evaluation. She also notes some BL lower back discomfort and occasional LLQ abdominal sharp discomfort but this only lasts seconds. She has had decreased appetite. Workup in the ED included T97.6, heart rate 86, BP 131/89, respiratoryrate 16, 98% on room air with most recent repeat vital signs T98.1, heart rate 75, BP 137/67, respiratory rate 16, 99% on room air, CBC with WBC 4.0, hemoglobin 12.8, MCV 98.2, platelet 155 without marked shift, BMP with BUN/creatinine 19/0.94, GFR 62, initial troponin 4 with repeat delta 5, urinalysis with specific remedy 1.020, urine protein 15, occult blood 10, negative nitrite, leukocyte Estrace 500 with urine WBCs 10-25 with 1+ urine bacteria, urine culture pending per ED, SARS COVID/influenza/RSV PCR negative, chest x-ray with chronic COPD type changes otherwise no acute cardiopulmonary findings, CT brain with chronic involutional and ischemic changes of the brain with no acute intracranial findings otherwise, EKG with SR with non-specific changes similar to prior. In the ED patient ministered 1 L normal saline as well as Rocephin 1 g IV x 1. PFSH Medical History (Updated 08/08/23 @ 19:[address] Jennifer Jackson MD) BPV (benign positional vertigo) Chronic idiopathic thrombocytopenia Chronic neutropenia CKD (chronic kidney disease), stage II Home Medications omega-3 fatty acids 1,000 mg capsule 1,000 mg PO DAILY SUPPLEMENT 07/29/18 [History Last Taken 08/08/23] ibuprofen 600 mg tablet 600 mg PO Q8H PRN musculoskeletal pain 04/23/23 [History Last Taken Unknown] Allergy/AdvReac Type Severity Reaction Status Date / Time No Known Allergies Allergy Verified 08/08/23 13:58 Family History (Updated 08/08/23 @ 19:[address] Jennifer Jackson MD) Mother Cancer Heart disease Heart failure Hypertension Father Pulmonary fibrosis Surgical History Hx of cholecystectomy Social History (Updated 08/08/23 @ 19:[address] Jnenifer Jackson MD) household members: spouse Smoking Status: Never smoker alcohol intake: never substance use type: does not use ROS ROS Narrative Admission Review of Systems: CONSTITUTIONAL: No weight loss, fever, chills, + weakness or fatigue. HEENT: + Generalized mild headache. Eyes: No visual loss, blurred vision, double vision or yellow sclerae. Ears, Nose, Throat: No hearing loss, sneezing, congestion, runny nose or sore throat. SKIN: No rash or itching, lesions, wounds. CARDIOVASCULAR: + Syncopal event. No chest pain, chest pressure or chest discomfort, palpitations, edema, orthopnea. RESPIRATORY: No shortness of breath, cough or sputum, wheezing, hemoptysis. GASTROINTESTINAL: + anorexia, very transient intermittent left lower quadrant abdominal pain. No nausea, vomiting or diarrhea, melena, BRBPR. GENITOURINARY: + dysuria, frequency, bilateral lumbar back discomfort. No urgency or retention. NEUROLOGICAL: + Syncopal event with no prodrome, Occasional mild generalized headache. No paralysis, ataxia, numbness or tingling in the extremities, focal weakness, change in bowel or bladder control, seizure. MUSCULOSKELETAL: + muscle, back pain, joint pain or stiffness. HEMATOLOGIC: No anemia. Easy bleeding/bruising. LYMPHATICS: No enlarged nodes. No history of splenectomy. PSYCHIATRIC: No history of depression or anxiety. ENDOCRINOLOGIC: No reports of sweating, cold or heat intolerance. No polyuria orpolydipsia. ALLERGIES: No history of asthma, hives, eczema or rhinitis. Vital Signs Vital Signs Vital Signs: 08/08/23 13:58 08/08/23 14:12 08/08/23 15:58 Temperature 97.6 F L Temperature Source Temporal Pulse Rate 89 68 Respiratory Rate 16 15 Respiratory Effort Normal Non-Labored Respiratory Pattern Normal Blood Pressure 131/89 H 130/78 H Blood Pressure Mean 103 95 Pulse Ox 98 98 Oxygen Delivery Method Room Air Room Air 08/08/23 17:00 08/08/23 19:00 08/08/23 19:00 Temperature 98.1 F 98.1 F Temperature Source Temporal Pulse Rate 78 75 75 Respiratory Rate 19 H 16 16 Respiratory Effort Respiratory Pattern Blood Pressure 147/68 H 137/67 H 137/67 H Blood Pressure Mean 94 90 90 Pulse Ox 96 99 99 Oxygen Delivery Method Room Air Room Air 08/08/23 19:00 Temperature 98.1 F Temperature Source Temporal Pulse Rate 75 Respiratory Rate 16 Respiratory Effort Respiratory Pattern Blood Pressure 137/67 H Blood Pressure Mean 90 Pulse Ox 99 Oxygen Delivery Method Room Air Weight Weight: 112 lb 1.6 oz Body Mass Index (BMI) 19.8 Physical Exam Narrative Physical Examination: General: Awake, alert, oriented x 3 and cooperative, laying in the ED bed, fatigued, mildly ill-appearing. Skin: Normal color, normal turgor, no icterus, no cyanosis except occasional staged ecchymoses. HEENT: AT/NC, EOMI, PERRLA, dry MM, no carotid bruits or JVD noted. Lungs: Mildly diminished, greater bases, proper effort, no rales, ronchi or wheezing. Heart: Currently regular rate and rhythm; no gallop, rub audible. Abdomen: Soft, no reproducible abdominal discomfort, no flank pain with palpation, ND, mildly hyperactive BS, no appreciated HSM. Extremities: No cyanosis, clubbing, or edema. Neurological: Patient awake, alert, oriented as noted, cognitive function intact; pupils equally reactive to light and accommodation, cranial nerves grossly normal, moving all 4 extremities, no focal deficits, strength moderatelyto severely globally decreased secondary to acute presentation complaints. Psychiatric: Affect appears flat, fatigued, mildly ill-appearing, no acute evidence of depressive or anxiety feelings. Results Lab / Micro Data 08/08/23 14:35 08/08/23 14:35 Labs: Laboratory Results - last 24 hr 08/08/23 14:35: WBC 4.0 L, RBC 3.83 L, Hgb 12.8, Hct 37.6, MCV 98.2, MCH 33.4 H,MCHC 34.0, RDW Std Deviation 44.2 H, RDW Coeff of Petros 12.3, Plt Count 155, MPV 8.7, Immature Gran % (Auto) 0.500, Neut % (Auto) 63.3, Lymph % (Auto) 28.3, Kinney% (Auto) 7.3, Eos % (Auto) 0.3, Baso % (Auto) 0.3, Absolute Neuts (auto) 2.5, Absolute Lymphs (auto) 1.13, Nucleated RBC % 0, Sodium 136, Potassium 3.6, Chloride 103, Carbon Dioxide 29.0, Anion Gap 4 L, BUN 19 H, Creatinine 0.94, Estim Creat Clear Calc 42.15, Est GFR (MDRD) Af Amer 75, Est GFR (MDRD) Non-Af 62, BUN/Creatinine Ratio 20.2 H, Glucose 100, Calcium 8.6, Troponin I High Sens 4 08/08/23 16:50: Urine Color Yellow, Urine Clarity Clear, Urine pH 6.0, Ur Specific [place] 1.020, Urine Protein 15 H, Urine Glucose (UA) Normal, Urine Ketones Negative, Urine Occult Blood 10 H, Urine Nitrite Negative, Urine Bilirubin Negative, Urine Urobilinogen Normal, Ur Leukocyte Esterase 500 H, Urine RBC 0 SEEN, Urine WBC 10-25 SEEN, Ur Squamous Epith Cells 0 SEEN, Urine Bacteria 1+, Urine Mucus 0 SEEN 08/08/23 17:35: Troponin I High Sens 5 Micro: Microbiology 08/08/23 15:40 Mucosa - Nose SARS-CoV-2, Influenza & RSV (PCR) - Final Imaging Radiology Impression Brain CT 08/08/23 15:13 IMPRESSION: No acute intracranial abnormality. Chronic involutional and ischemic changes of the brain. Electronically Signed: Edis Torres MD at 16:45 EDT , Chest X-Ray 08/08/23 16:05 IMPRESSION: Hyperinflated lungs which can be seen in COPD. No acute radiographic abnormalities. Electronically Signed: Edis Torres MD at 16:47 EDT , Assessment & Plan Assessment/Plan (1) Syncope: (2) UTI (urinary tract infection): PLAN: Plan The patient is a 73 y/o w/ PMHx: CKD stage II per GFR trending, Hx Chronic thrombocytopenia, Chronic neutropneia, Hx BPPV who presents to the [facility] ED on 08/08/23 with history of generalized fatigue, malaise and weakness with reported sudden onset syncopal event just prior to deciding to come to the ED with no specific prodrome such as lightheadedness, dizziness, chest pain or dyspnea onlya mild headache lasting only seconds but it did take a couple minutes to get up and and ambulate after this episode with no recent fevers or chills prompting eventual ED evaluation. #1. Syncopal Event, suspected related with #2: EKG in ED w/ sinus rhythm without evidence of acute ischemia, CXR w/ COPD type changes, initial trop normal with repeat delta also normal. Will admit to PCU, place on a monitored bed to assure no acute myocardial infarction with serial cardiac enzymes and EKGs. Will maintain on fall precautions, obtain admission orthostatic and AM orthostatic VS and increase hydration if appropriate. If no marked findings and recurrent event despite treatment as noted #2 or further concerns arise may needto also consider ECHO. PT/OT/CM consultation to ascertain stability and discharge needs. #2. Acute Complicated Urinary Tract Infection: Suspect possible etiology for #1as noted above, UA upon ED evaluation remarkable, pending UCx, will maintain on judicious, monitor I/Os, continue IV Rocephin w/ transition as able pending sensitivities and speciation. #3. History of benign positional vertigo: As noted patient with no specific prodrome prior to her syncopal event, likely unrelated with BPPV history. #4. History of chronic thrombocytopenia: Admission platelet 155, also noted to be normal 08/22/2021 at platelet 178 but previous to this had been 100-1 20 rangehowever this was in 2019, continue to trend CBC. #5. Chronic neutropenia, unclear etiology: Admission WBC 4.0, prior to this 08/22/2021 WBC 3.4 with prior to this in 2019 noted WBC 5-7 range, will continue to trend CBC. #6. Chronic Kidney Disease Stage II: Admission BUN/Cr 19/0.94, GFR 62, baselinerenal function primarily 0.7-0.8, most recent GFR previously 08/22/2273 and was primarily 70-80 range prior to this recent presentation, repeat BMP in AM to further elucidate. #7. DVT prophylaxis: Lovenox. #8. CODE status: Patient GONZALES is her daughter Gail and living will she believes is also in place. Discussed CODE status at length including difference between FULL code, DNR-CCA and DNR-CC status. Following discussions about the differences in these status, requested Full Code status. Advanced Care Planning Face to Face Time: 16 minutes. Charges/Coding Visit Charges Inpatient E&M: 23623 Init Hosp L3 Procedures Hospitalists Procedures: 32093 Advncd Care Plan 30 Min 08/08/231958 <Electronically signed by Jennifer Jackson MD> Cosigner Signature (if applicable): CC: Dr. Jennifer Jackson MD; Dr. Manuel Joy MD~ Signed [facility] Work Phone: Summary Purpose Family History No Family History Records Found Relationship Condition Age at Onset Recorded Date/T kely mother Malignant neoplasm Unknown Relationship Condition Age at Onset Recorded Date/T kely mother Malignant neoplasm Unknown Cardiac disease Unknown Heart failure Unknown Hypertension Unknown father Fibrosis of lung Unknown Advance Directives No Advanced Directives Records Found Advance Directive Response Recorded Date/ Time Living Will Yes July 29, 2018 8:02am Power of Wellness Coach Yes July 29 8:02am Advance Directive Response Recorded Date/ Time Living Will No August 08, 2023 2: 12pm Power of Wellness Coach No August 08, 2023 2:12pm Advance Directive Response Recorded Date/ Time Name of Medical Power of Wellness Coach Gail Mcghee August 08, 2023 8:22pm Living Will Yes August 08, 2023 8: 22pm Power of Wellness Coach Yes August 08, 2023 8:22pm Chief Complaint and Reason for Visit Chief Complaint 6 M FU Reason for Visit Abdominal pain Constipation Chief Complaint 6 M FU UPPER ABDOMINAL PAIN, BLOATING, CONSTIPATION Reason for Visit Abdominal pain Constipation Chief Complaint Annual/Physical SYNCOPE,UTI Reason for Visit Chalazion of right u pper eyelid Constipation Thrombocytopenia Generalized weakness Syncope UTI (urinary tract infection) Chief Complaint Annual/Physical SYNCOPE,UTI SYNCOPE,UTI SYNCOPE,UTI SYNCOPE,UTI Reason for Visit Chalazion of right u pper eyelid Constipation Thrombocytopenia Generalized weakness Syncope UTI (urinary tract infection) Additional Source Comments INFORMATION SOURCE (unrecogn ized section and content) DATE CREATED AUTHOR 04/22/2018 [facility] ([place]) DATE CREATED AUTHOR AUTHOR'S ORGANIZ ATION 08/24/2023 [facility] DATE CREATED AUTHOR AUTHOR'S ORGANIZ ATION 01/10/2024 [facility] DATE CREATED AUTHOR AUTHOR'S ORGANIZ ATION 07/04/2024 [facility] Goals (unrecognized section and content) Goals may be documented in a n alternate sectionGoals may be documented in an alternate sectionGoals may be documented in an alternate section Care Teams (unrecognized sec tion and content) Team Status: Active Member Role Status Dates Dr. Manuel Joy MD Family Provider Active Dr. Manuel Joy MD Primary Care Provider Active Team Status: Inactive Member Role Status Dates Dr. Manuel Joy MD Primary Care Provider, Attendi ng Provider Active Team Status: Active Member Role Status Dates Dr. Manuel Joy MD Primary Care Provider Active Dr. Roula Dominguez MD Emergency Provider Active Dr. Jennifer Jackson MD Admit Provider, Attending Provider, Referring Provider Active Team Status: Active Member Role Status Dates Dr. Manuel Joy MD Primary Care Provider Active Dr. Roula Dominguez MD Emergency Provider Active Dr. Jennifer Jackson MD Admit Provider, Referring Provider, Other Provider Active Dr. Keny Hunter MD Attending Provider, Other Provid er Active Team Status: Active Member Role Status Dates Dr. Manuel Joy MD Primary Care Provider Active Dr. Montrell Morgan MD Attending Provider Active Team Status: Inactive Member Role Status Dates Dr. Manuel Joy MD Primary Care Provider Active Dr. Roula Dominguez MD Emergency Provider Active Dr. Jennifer Jackson MD Admit Provider, Referring Provider, Other Provider Active Dr. Keny Hunter MD Attending Provider Active Source Comments (unrecognize d section and content) In the event this informatio n is protected by the Federal Confidentiality of Alcohol and Drug Abuse Patient Records regulations: The Federal rules restrict any use of the information to criminally investigate or prosecute any alcohol or drug abuse patient.[facility] the event this information is protected by the Federal Confidentiality of Alcohol and Drug Abuse Patient Records regulations: The Federal rules restrict any use of the information to criminally investigate or prosecute any alcohol or drug abuse patient[facility] Reason for Visit (unrecogniz ed section and content) Reason Comments Urinary Frequency Frequency, burning a nd lower back pain x 1 day Reason Comments Results FOR RECORDS PERTAINING TO PATIENTS WHO ARE OR HAVE BEEN ENROLLED IN A CHEMICAL DEPENDENCY/SUBSTANCEABUSE PROGRAM, SOME INFORMATION MAY BE OMITTED. This clinical summary was aggregated from multiple sources. Caution should be exercised in using it in the provision of clinical care. This summary normalizes information from multiple sources, and as a consequence, information in this document may materially change the coding, format and clinical context of patient data. In addition, data may be omitted in some cases. CLINICAL DECISIONS SHOULD BE BASED ON THE PRIMARY CLINICAL RECORDS. [facility] [employer] [facility] provides no warranty or guarantee of the accuracy or completeness of information in this document.
[2024-10-27 23:13] LABS: D-Dimer Quantitative (DVT/PE) 0.29 FEU/ug/m (0.27-0.49)
[2024-10-27 23:34] LABS: Anion Gap 9 (5-15); BUN 19 mg/dL (4-19); BUN/Creat Ratio 23.5 RATIO (10-20); Calcium,Total 9.2 mg/dL (7.6-11.0); Carbon Dioxide 26.6 mmol/L (21.0-32.0); Chloride 104 mmol/L (98-108); Estimated Creatinine Clearance 52.47 ml/min (50-250); Glucose 109 mg/dL (70-99); Potassium 3.6 mmol/L (3.3-5.1); Troponin T High Sensitivity 31 ng/L (<=14)
[2024-10-28] VITALS (10 sets, daily range): BP systolic 143–155; BP diastolic 72–77; PULSE 56–72; RESP 9–18; TEMP 36.6; O2SAT 96–100
[2024-10-28 01:32] LABS: Troponin T High Sens 2 HR 30 ng/L (<=14)
== END 2024-10-28 02:29 | disposition home or self-care (01) ==
PROVIDERS: Emergency Provider Emergency Medicine; PCP Internal Medicine; Visit Provider Emergency Medicine
DX: R07.89 Other chest pain (principal); D69.3 Immune thrombocytopenic purpura; N18.2 Chronic kidney disease, stage 2 (mild); E03.9 Hypothyroidism, unspecified; H81.10 Benign paroxysmal vertigo, unspecified ear; H40.9 Unspecified glaucoma
CPT/HCPCS: 71045; 80048; 84484; 85025; 85379; 93005; 99283; A4216

== ENCOUNTER → 2024-12-09 | Outpatient (CLI) | payer MEDICARE, OTHER, SELFPAY ==
[2024-12-09 13:11] LABS: Hematocrit 36.8 % (37-47); Hemoglobin 12.6 g/dL (12.0-15.0); Immature Granulocytes Count 0.010 X10^3/uL (0.0-0.0); Mean Corp Hgb Conc 34.2 g/dL (32-36); Mean Corpuscular Volume 97.4 fL (81-99); Mean Platelet Vol. 8.5 fl (6.2-12.0); NRBC Flagged by Analyzer 0 % (0-5); Platelet Count 142 K/mm3 (150-450); RBC Distribution Width CV 12.7 % (11.6-14.6); RBC Distribution Width SD 45.6 fl (35.1-43.9); Red Blood Count 3.78 M/mm3 (4.2-5.4); White Blood Count 4.1 K/mm3 (4.4-11.0)
[2024-12-09 14:40] LABS: AST(SGOT) 20 U/L (<=31); Alanine Aminotransfer ALT/SGPT 16 U/L (<=34); Albumin, Serum 4.4 g/dL (3.4-4.8); Alkaline Phosphatase 61 U/L (35-104); Anion Gap 9 (5-15); BUN 19 mg/dL (4-19); BUN/Creat Ratio 24.9 RATIO (10-20); Calcium,Total 9.8 mg/dL (7.6-11.0); Carbon Dioxide 27.7 mmol/L (21.0-32.0); Chloride 106 mmol/L (98-108); Cholesterol 161 mg/dL (<=200); Free T3 2.3 pg/mL (2.18-3.98); Globulin 2.6 g/dL (2.2-4.2); Glucose 96 mg/dL (70-99); Low Density Lipoprotein Calc. 55 mg/dL; Magnesium 2.2 mg/dL (1.5-2.2); Potassium 4.0 mmol/L (3.3-5.1); Triglycerides 87 mg/dL; Very Low Density Lipoprotein 17 mg/dL (5-40); Vitamin D,25 Hydroxy 28.4 ng/mL (30-100); cholesterol:hdl ratio screen 1.82
== END | disposition home or self-care (01) ==
LOC: LAB 12:43
PROVIDERS: PCP Internal Medicine; Referring Provider Internal Medicine; Visit Provider Internal Medicine
DX: N18.2 Chronic kidney disease, stage 2 (mild) (principal); E03.9 Hypothyroidism, unspecified; R53.1 Weakness; R53.83 Other fatigue; Z13.220 Encounter for screening for lipoid disorders; E55.9 Vitamin D deficiency, unspecified
CPT/HCPCS: 36415; 80053; 80061; 82306; 83735; 84439; 84443; 84481; 85025